=== PATIENT | male | born 1940 | race Caucasian/White ===

== ENCOUNTER 2019-02-04 12:39 | Inpatient (IN) | payer MEDICARE, MEDICAID ==
--- NOTE | 2019-02-04 12:57 | ED Physician Chart ---
ED Chief Complaint/HPI - Patient Information Date Seen:: 02/04/19 Time Seen:: 12:45 Chief Complaint:: Fever with leukocytosis. History of Present Illness:: Brought in by ambulance from nursing facility because pt was noticed to have fever. Lab study this morning revealed WBC 20.6K. Pt has h/o CVA with left hemiparesis and baseline functioning reportedly being nonverbal. H & P are limited because pt does not cooperate. Info is primarily from review of limited transfer documents. Allergies:: Allergies Allergy/AdvReac Type Severity Reaction Status Date / Time No Known Allergies Allergy Verified 12/31/18 14:56 Vitals:: see Nurse Note. Historian:: Medical Records Family MD/PCP:: Dr. Abraham LMP:: N/A Review:: Nurse's Note Reviewed, Transfer documents Reviewed ED Review of Systems - Review of Systems General/Constitutional: Other (Pt does not cooperate for ROS.) ED Past Medical History - Past Medical History Past Medical History: HTN, CVA/TIA, Thyroid disorder, Other (BPH) Family History: Other (Pt does not cooperate to provide info on FHx.) Social History: Care Facility, Other (Pt does not cooperate to provide info on SHx.) Employment:: Retired. Surgical History: other (Pt does not cooperate to provide info on Surgical Hx.) Psychiatricy History: None Medication: Reviewed Family Medical History - Family Member Mother History Unknown: Yes Ethnicity: Hx Family Cancer: No Hx Family Coronary Artery Disease: Yes Hx Family Congestive Heart Failure: No Hx Family Hypertension: Yes Hx Family Stroke: No Hx Family Diabetes: Yes Hx Family Seizures: No Hx Family Dementia: Yes Hx Family AIDS: No Hx Family HIV: No Hx Family COPD: No Hx Family Hepatitis: No Hx Family Psychiatric Problems: No Hx Family Tuberculosis: No ED Physical Exam - Physical Examination General/Constitutional: Awake, Well-developed, well-nourished (elderly male.), Alert, No distress Other Gen/Cons comments:: Pt is nonverbal, breathes comfortably, responds to voice and tactile stimuli. Head: Atraumatic Eyes: Lids, conjuctiva normal, PERRL, EOMI Skin: No lymphadenopathy Other Skin comments:: Mucous membrane is slightly dry. ENMT: External ears, nose nl, TM canals nl, Nasal exam nl, Oropharynx nl Neck: Nontender, Full ROM w/o pain, No JVD, No nuchal rigidity, No mass, No stridor Respiratory: Nl effort/Exclusion, Clear to Auscultation, No Wheeze/Rhonchi/Rales Cardio Vascular: RRR (HR 96), No murmur, gallop, rubs, Carotid/Femoral/Distal pulses equal bilaterally GI: No tenderness/rebounding/guarding, No organomegaly, Normal BS's, Nondistended Other GI comments:: abdomen is soft. Extremities: No edema Other Neuro/Psych comments:: Alert and responsive to voice and tactile stimuli. Pt is nonverbal. Spontaneous movements noticed in all 4 extremities. Pt does not cooperate for full neurological exam. ED Labs/Radiology/EKG Results - Lab Results Results: Laboratory Results - last 24 hr 02/04/19 02/04/19 02/04/19 12:30 13:25 13:25 WBC 18.4 H RBC 3.63 L Hgb 11.4 L Hct 33.9 L MCV 93.4 MCH 31.5 H MCHC Differential 33.7 RDW 14.9 Plt Count 378 MPV 7.3 Add Manual Diff YES PT 9.9 INR 0.95 PTT (Actin FS) 29.6 Sodium Potassium Chloride Carbon Dioxide Anion Gap BUN Creatinine Est GFR ( Amer) Est GFR (Non-Af Amer) BUN/Creatinine Ratio Glucose Whole Bld Lactic Acid Calcium Total Bilirubin AST ALT Alkaline Phosphatase Troponin I Total Protein Albumin Globulin Albumin/Globulin Ratio Urine Source RAO PORT Urine Color YELLOW Urine Clarity CLOUDY Urine pH 8.5 Ur Specific [place] 1.015 Urine Protein >=300 Urine Glucose (UA) NEGATIVE Urine Ketones TRACE Urine Blood LARGE H Urine Nitrate NEGATIVE Urine Bilirubin NEGATIVE Urine Urobilinogen 1.0 Ur Leukocyte Esterase LARGE H Urine RBC 10-25 H Urine WBC 50-100 H Ur Epithelial Cells NONE SEEN Urine Bacteria MANY H 02/04/19 02/04/19 13:25 13:25 WBC RBC Hgb Hct MCV MCH MCHC Differential RDW Plt Count MPV Add Manual Diff PT INR PTT (Actin FS) Sodium 141 Potassium 3.4 L Chloride 105 Carbon Dioxide 23.0 Anion Gap 16.4 H BUN 30 H Creatinine 1.2 Est GFR ( Amer) TNP Est GFR (Non-Af Amer) TNP BUN/Creatinine Ratio 25.0 Glucose 197 H Whole Bld Lactic Acid 2.21 H* Calcium 9.4 Total Bilirubin 0.4 AST 19 ALT 4 L Alkaline Phosphatase 106 H Troponin I 0.52 H* Total Protein 6.6 Albumin 3.3 L Globulin 3.3 Albumin/Globulin Ratio 1.0 Urine Source Urine Color Urine Clarity Urine pH Ur Specific [place] Urine Protein Urine Glucose (UA) Urine Ketones Urine Blood Urine Nitrate Urine Bilirubin Urine Urobilinogen Ur Leukocyte Esterase Urine RBC Urine WBC Ur Epithelial Cells Urine Bacteria - Radiology Results Results: PCXR: Slight increase left basal lung markings favoring atelectasis. Infiltrate is less likely but cannot be excluded. Cardiomegaly and atherosclerosis. Official report per Dr. Robby Rod, radilologist. - EKG Interpretations EKG Time:: 13:23 Rate & Rhythm: Probable NSR with baseline artifact as pt was not cooperative. VR 113 Comments:: OMEGA JJ. NSSTT changes. ED Septic Shock - . Is Septic Shock (SBP<90, OR Lactate>4 mmol\L) present?: No ED Reassessment (Disposition) - Reassessment Reassessment:: 1450 Pt has been repeatedly evaluated. Pt remains stable. No new findings. Pt's attending physician Dr. Abraham has been contacted. 1553 Pt appears to be comfortable and remains hemodynamically stable. Case was discussed with Dr. Abraham with pertinent info reviewed. Pt is to be admitted to ICU under his care. Reassessment Condition:: Improved - Diagnosis Diagnosis:: Urinary tract infection with early sepsis. Dehydration. Hyperglycemia. Mildly elevated troponin I. Mild hypokalemia. H/O CVA with dementia. - Patient Disposition Admitting Medical Physician:: Marcelo Abraham Time:: 15:55 Condition at Disposition:: Stable
[2019-02-04] MEDS ORDERED: cefTRIAXone 1 GM in Sodium Chloride 0.9% 50 ML IV ONE (13:03)
[2019-02-04] MEDS ORDERED: Sodium Chloride 0.9% 1,000 ML IV ONE (13:09)
[2019-02-04 13:46] LABS: URINE SOURCE FOLEY PORT
[2019-02-04 13:50] LABS: HEMATOCRIT 33.9 % (41.0-60); HEMOGLOBIN 11.4 gm/dL (12-16); MEAN CELL VOLUME 93.4 fl (80-99); MEAN CORPUSCULAR HEMOGLOBIN 31.5 pg (27.0-31.0); MEAN CORPUSCULAR HGB CONC 33.7 pg (28.0-36.0); MEAN PLATELET VOLUME 7.3 fl; PLATELET COUNT 378 Th/cmm (150-400); RED BLOOD COUNT 3.63 Mil/cmm (3.80-5.80); RED CELL DISTRIBUTION WIDTH 14.9 % (11.5-20.0)
[2019-02-04 13:50] LABS: URINE BILIRUBIN NEGATIVE (NEGATIVE); URINE BLOOD LARGE (NEGATIVE); URINE GLUCOSE (UA) NEGATIVE (NEGATIVE); URINE KETONE TRACE mg/dL (NEGATIVE); URINE LEUKOCYTE ESTERASE LARGE (NEGATIVE); URINE MICROSCOPIC INDICATED? YES; URINE NITRATE NEGATIVE (NEGATIVE); URINE PH 8.5 (4.6 - 8.0); URINE PROTEIN >=300 mg/dL (NEGATIVE)
[2019-02-04 13:55] LABS: WHITE BLOOD COUNT 18.4 Th/cmm (4.8-10.8)
[2019-02-04 13:56] LABS: INR 0.95 (0.5-1.4); PROTHROMBIN TIME (TEST) 9.9 SECONDS (9.5-11.5)
[2019-02-04 14:00] LABS: ALBUMIN 3.3 gm/dL (4.2-5.5); ALKALINE PHOSPHATASE 106 U/L (34-104); ANION GAP 16.4 (7.0-16.0); BILIRUBIN,TOTAL 0.4 mg/dL (0.3-1.0); BUN - UREA NITROGEN 30 mg/dL (7-25); CALCIUM SERUM 9.4 mg/dL (8.6-10.3); CHLORIDE 105 mEq/L (98-107); CREATININE - SERUM 1.2 mg/dL (0.7-1.3); GLUCOSE 197 mg/dL (70-105); POTASSIUM SERUM 3.4 mEq/L (3.5-5.1); SGOT 19 U/L (13-39); SGPT/ALT 4 U/L (7-52); SODIUM SERUM 141 mEq/L (136-145); TOTAL PROTEIN,SERUM 6.6 gm/dL (6.0-8.3)
--- NOTE | 2019-02-04 14:00 | Diagnostic Imaging Report ---
CHEST X-RAY: AP view INDICATION: Fever, leukocytosis COMPARISON: Chest x-ray 01/02/2019 FINDINGS: There is elevation of the right hemidiaphragm. Slight increased left basal lung markings are noted. Cardiomegaly is noted with atherosclerosis. Degenerative changes of the spine are noted. Skinfold over the right hemithorax is noted. IMPRESSION: Slight increase left basal lung markings favoring atelectasis. Infiltrate is less likely but cannot be excluded. Cardiomegaly and atherosclerosis.
[2019-02-04 14:15] LABS: TROP I 0.52 ng/mL (0.01-0.05)
[2019-02-04 14:22] LABS: URINE CLARITY CLOUDY (CLEAR); URINE COLOR YELLOW
[2019-02-04 14:24] LABS: URINE BACTERIA MANY /hpf (NONE SEEN); URINE EPITHELIAL CELLS NONE SEEN /lpf (FEW); URINE WBC 50-100 /hpf (0-5)
[2019-02-04] MEDS ORDERED: Potassium Chloride 20 mEq ER Tab PO ONE ×2 (14:59→15:05)
[2019-02-04 16:01] LABS: LYMPHOCYTE 4 % (20-50); MONOCYTE 4 % (2-10); NEUTROPHILS 92 % (40-80)
[2019-02-04] MEDS: INSULIN LISPRO SLIDING SCALE 100 UNITS/ML UNIT SUBQ SCH ×2 (18:00→21:59)
[2019-02-04] MEDS ORDERED: Dextrose 50% 50 mL Abboject IVP PRN (20:04)
[2019-02-04] MEDS: D5-0.45NS 1,000 ML IV SCH (20:50)
[2019-02-04] MEDS ORDERED: Piperacillin Sodium/Tazobact 2.25 gm Vial IV ONE (22:07)
[2019-02-05] MEDS ORDERED: Piperacillin Sodium/Tazobact 2.25 gm Vial IV ONE (04:24)
[2019-02-05 04:46] LABS: % BASOPHILS 0.1 % (0.0-2.0); % EOSINOPHILS 0.2 % (0.0-5.0); % LYMPHOCYTES 10.9 % (20.0-50.0); % MONOCYTES 4.6 % (2.0-10.0); % NEUTROPHILS 84.2 % (40.0-80.0); HEMATOCRIT 30.8 % (41.0-60); HEMOGLOBIN 10.1 gm/dL (12-16); LYMPHOCYTE ABSOLUTE 1.5 Th/cmm (1.5-3.0); MEAN CELL VOLUME 94.3 fl (80-99); MEAN CORPUSCULAR HEMOGLOBIN 30.9 pg (27.0-31.0); MEAN CORPUSCULAR HGB CONC 32.8 pg (28.0-36.0); MEAN PLATELET VOLUME 7.3 fl; MONOCYTE ABSOLUTE 0.6 Th/cmm (0.3-1.0); PLATELET COUNT 313 Th/cmm (150-400); RED BLOOD COUNT 3.26 Mil/cmm (3.80-5.80); RED CELL DISTRIBUTION WIDTH 14.9 % (11.5-20.0); WHITE BLOOD COUNT 14.1 Th/cmm (4.8-10.8)
[2019-02-05 05:18] LABS: ALBUMIN 3.1 gm/dL (4.2-5.5); ALKALINE PHOSPHATASE 93 U/L (34-104); BILIRUBIN,TOTAL 0.4 mg/dL (0.3-1.0); BUN - UREA NITROGEN 22 mg/dL (7-25); CALCIUM SERUM 9.1 mg/dL (8.6-10.3); CARBON DIOXIDE 23.6 mEq/L (21.0-31.0); CHLORIDE 114 mEq/L (98-107); CREATININE - SERUM 0.8 mg/dL (0.7-1.3); POTASSIUM SERUM 3.6 mEq/L (3.5-5.1); SGOT 22 U/L (13-39); SGPT/ALT 8 U/L (7-52); SODIUM SERUM 147 mEq/L (136-145); TOTAL PROTEIN,SERUM 6.1 gm/dL (6.0-8.3)
[2019-02-05 05:42] LABS: GLUCOSE 120 mg/dL (70-105)
[2019-02-05] MEDS: INSULIN LISPRO SLIDING SCALE 100 UNITS/ML UNIT SUBQ SCH ×4 (06:39→20:24)
--- NOTE | 2019-02-05 11:03 | General Progress Note ---
Subjective - Review of Systems Service Date: 02/05/19 Subjective: Patient still complained of shortness of breath Objective - Results Result Diagrams: 02/05/19 04:15 02/05/19 04:15 Recent Labs: Laboratory Last Values WBC 14.1 Th/cmm (4.8-10.8) H 02/05/19 04:15 RBC 3.26 Mil/cmm (3.80-5.80) L 02/05/19 04:15 Hgb 10.1 gm/dL (12-16) L 02/05/19 04:15 Hct 30.8 % (41.0-60) L 02/05/19 04:15 MCV 94.3 fl (80-99) 02/05/19 04:15 MCH 30.9 pg (27.0-31.0) 02/05/19 04:15 MCHC Differential 32.8 pg (28.0-36.0) 02/05/19 04:15 RDW 14.9 % (11.5-20.0) 02/05/19 04:15 Plt Count 313 Th/cmm (150-400) 02/05/19 04:15 MPV 7.3 fl 02/05/19 04:15 Add Manual Diff YES 02/04/19 13:25 Neutrophils % 84.2 % (40.0-80.0) H 02/05/19 04:15 Lymphocytes % 10.9 % (20.0-50.0) L 02/05/19 04:15 Monocytes % 4.6 % (2.0-10.0) 02/05/19 04:15 Eosinophils % 0.2 % (0.0-5.0) 02/05/19 04:15 Basophils % 0.1 % (0.0-2.0) 02/05/19 04:15 Neutrophils (Manual) 92 % (40-80) H 02/04/19 13:25 Lymphocytes 4 % (20-50) L 02/04/19 13:25 Monocytes 4 % (2-10) 02/04/19 13:25 PT 9.9 SECONDS (9.5-11.5) 02/04/19 13:25 INR 0.95 (0.5-1.4) 02/04/19 13:25 PTT (Actin FS) 29.6 SECONDS (26.0-38.0) 02/04/19 13:25 Sodium 147 mEq/L (136-145) H 02/05/19 04:15 Potassium 3.6 mEq/L (3.5-5.1) 02/05/19 04:15 Chloride 114 mEq/L (98-107) H 02/05/19 04:15 Carbon Dioxide 23.6 mEq/L (21.0-31.0) 02/05/19 04:15 Anion Gap 13.0 (7.0-16.0) 02/05/19 04:15 BUN 22 mg/dL (7-25) 02/05/19 04:15 Creatinine 0.8 mg/dL (0.7-1.3) 02/05/19 04:15 Est GFR ( Amer) TNP 02/05/19 04:15 Est GFR (Non-Af Amer) TNP 02/05/19 04:15 BUN/Creatinine Ratio 27.5 02/05/19 04:15 Glucose 120 mg/dL (70-105) H D 02/05/19 04:15 POC Glucose 102 MG/DL (70 - 105) 02/05/19 06:35 Whole Bld Lactic Acid 1.64 mmol/L (0.60-1.99) 02/04/19 15:25 Calcium 9.1 mg/dL (8.6-10.3) 02/05/19 04:15 Total Bilirubin 0.4 mg/dL (0.3-1.0) 02/05/19 04:15 AST 22 U/L (13-39) 02/05/19 04:15 ALT 8 U/L (7-52) 02/05/19 04:15 Alkaline Phosphatase 93 U/L (34-104) 02/05/19 04:15 Troponin I 0.16 ng/mL (0.01-0.05) H* D 02/05/19 04:15 Total Protein 6.1 gm/dL (6.0-8.3) 02/05/19 04:15 Albumin 3.1 gm/dL (4.2-5.5) L 02/05/19 04:15 Globulin 3.0 gm/dL 02/05/19 04:15 Albumin/Globulin Ratio 1.0 (1.0-1.8) 02/05/19 04:15 Urine Source RAO PORT 02/04/19 12:30 Urine Color YELLOW 02/04/19 12:30 Urine Clarity CLOUDY (CLEAR) 02/04/19 12:30 Urine pH 8.5 (4.6 - 8.0) 02/04/19 12:30 Ur Specific [place] 1.015 (1.005-1.030) 02/04/19 12:30 Urine Protein >=300 mg/dL (NEGATIVE) 02/04/19 12:30 Urine Glucose (UA) NEGATIVE mg/dL (NEGATIVE) 02/04/19 12:30 Urine Ketones TRACE mg/dL (NEGATIVE) 02/04/19 12:30 Urine Blood LARGE (NEGATIVE) H 02/04/19 12:30 Urine Nitrate NEGATIVE (NEGATIVE) 02/04/19 12:30 Urine Bilirubin NEGATIVE (NEGATIVE) 02/04/19 12:30 Urine Urobilinogen 1.0 E.U./dL (0.2 - 1.0) 02/04/19 12:30 Ur Leukocyte Esterase LARGE (NEGATIVE) H 02/04/19 12:30 Urine RBC 10-25 /hpf (0-5) H 02/04/19 12:30 Urine WBC 50-100 /hpf (0-5) H 02/04/19 12:30 Ur Epithelial Cells NONE SEEN /lpf (FEW) 02/04/19 12:30 Urine Bacteria MANY /hpf (NONE SEEN) H 02/04/19 12:30 - Physical Exam Vitals and I&O: Vital Signs Temp 97.6 F 02/05/19 08:00 Pulse 55 02/05/19 09:57 Resp 16 02/05/19 09:57 BP 143/68 02/05/19 09:57 Pulse Ox 99 02/05/19 09:57 Intake & Output 02/04/19 02/05/19 02/05/19 18:59 06:59 18:59 Intake Total 50 350 Output Total 800 Balance 50 -450 Weight (lbs) 65.771 kg 65.941 kg Intake: Intake, IV Amount 50 350 Piperacillin Sodium/ 100 Tazobact 2.25 gm In Sodium Chloride 0.9% 50 ml @ 100 mls/hr IV Q8HR [facility] Rx#:[id number] Vancomycin HCl 1 gm In 250 Sodium Chloride 0.9% 250 ml @ 165 mls/hr IV ONCE ONE Rx#:[id number] Oral 0 Output: Urine 800 Other: # Bowel Movements 2 Stool Characteristics Liquid Liquid Brown Brown Weight Source Estimated Bedscale Active Medications: Current Medications Dextrose (D50w) 50 ml IVP PRN PRN PRN Reason: B.S < 70 MG/DL Stop: 04/05/19 20:03 Piperacillin Sod/Tazobactam (Sod 2.25 gm/ Sodium Chloride) 50 mls @ 100 mls/hr IV Q8HR [facility] Stop: 04/05/19 20:59 Last Infusion: 02/05/19 05:05 Dose: Infused Dextrose/Sodium Chloride (D5-0.45ns) 1,000 mls @ 50 mls/hr IV .Q20H [facility] Stop: 04/05/19 20:00 Last Admin: 02/04/19 20:50 Dose: 50 mls/hr Vancomycin HCl 1.25 gm/ Sodium (Chloride) 250 mls @ 165 mls/hr IV Q12H [facility] Stop: 04/06/19 08:59 Insulin Human Lispro (Humalog Insulin Sliding Scale) 0 units SUBQ ACHS [facility]; Protocol Stop: 04/05/19 17:28 Last Admin: 02/05/19 06:39 Dose: Not Given Miscellaneous (Vancomycin Iv Per Pharmacy) 1 ea MC DAILY [facility] Stop: 04/06/19 08:59 General: No acute distress Neck: Supple, +2 carotid pulse wo bruit Cardiovascular: Regular rate, Normal S1, Normal S2, Systolic murmurs Abdomen: Bowel sounds, Soft Extremities: Edema, Pulses (normal) Neurological: Strength at 5/5 X4 ext, Normal tone, Cranial nerves 3-12 NL, Reflexes 2+, Other (left-sided weakness) Assessment/Plan - Problem List Patient Problems: All Active Problems FEVER, CONGESTION, ELEVATED WBC (Acute) FEVER, CONGESTION, ELEVATED WBC (Acute) - Assessment Assessment: Pneumonia Urinary tract infection Lactic acidosis Hypertension BPH Dysphagia Protein calorie malnutrition Small decubitus ulcer left heel healing Hypothyroid CVA with left-sided weakness - Plan Plan: Continue IV antibiotic present management and physical therapy
[2019-02-05 11:06] VITALS: BP 128/70
[2019-02-05] MEDS: Ipratropium Neb 0.5 mg/2.5 mL UD HHN SCH ×2 (14:52→19:27)
[2019-02-05] MEDS: Albuterol Nebulizer 2.5mg/3mL HHN SCH ×2 (14:52→19:27)
[2019-02-05] MEDS: Theophylline 100 mg ER Tab PO SCH (15:00)
--- NOTE | 2019-02-05 15:31 | History & Physical ---
ADMIT DATE: 02/04/[address] Abraham. CHIEF COMPLAINT: Fever. HISTORY OF PRESENT ILLNESS: This is a 78-year-old male, who is a care home resident, who was admitted to the ICU unit due to an abnormal laboratory result of WBC of 20,000. The patient did have an episode of fever. For this reason, the patient is admitted to the ICU unit. PAST MEDICAL HISTORY: Hypertension, CVA, hypothyroidism, BPH. FAMILY HISTORY: Noncontributory. SOCIAL HISTORY: The patient is a care home resident. PAST SURGICAL HISTORY: Unknown. MEDICATIONS: See medication list. REVIEW OF SYSTEMS: Unable to obtain at this time. PHYSICAL EXAMINATION: GENERAL: Elderly male, well developed, well nourished, no apparent distress, noted with congestion. VITAL SIGNS: Temperature 97.6, heart rate 80, blood pressure 123/68, respirations 16, O2 96%. HEAD: Normocephalic, atraumatic. NECK: Supple. No mass. LUNGS: Rhonchi with expiratory wheezes noted. HEART: Regular rhythm. No murmurs or gallops. ABDOMEN: Soft, nontender. LABORATORY DATA: WBC 14.1, H and H 10.1 and 30.8, platelet of 313. Sodium 142, potassium 3.6, chloride 114, BUN 113, creatinine 22. Troponin is 0.16. The patient had a chest x-ray done and impression is slight increased left basal lung markings, favoring atelectasis, infiltrates less likely, but cannot be excluded. ASSESSMENT: Acute urinary tract infection, hypokalemia, early sepsis, hypertension, benign prostatic hypertrophy, elevated troponin, acute dehydration. PLAN: The patient to be admitted to the ICU unit. We will get Infectious Disease as well as Cardiology on the case. We will get ST for evaluation, treat the patient with IV antibiotics of Zosyn, Accu-Chek a.c. and at bedtime. We will continue to monitor this patient. JOB# [id number]
[2019-02-05] MEDS ORDERED: Non-Formulary Item 1 EA (Amino Acids/Protein Hydrolys [Pro-Stat Sugar Free Liquid] 30 ML) PO SCH (17:00)
[2019-02-05] MEDS: D5-0.45NS 1,000 ML IV SCH (20:26)
--- NOTE | 2019-02-06 00:22 | Consultation ---
DATE OF CONSULTATION: 02/05/2019 INFECTIOUS DISEASE CONSULTATION REFERRING PHYSICIAN: Elias Abraham M.D. REASON FOR CONSULTATION: Leukocytosis, sepsis, and pneumonia. HISTORY OF PRESENT ILLNESS: The patient is a 78-year-old male with past medical history of functional quadriplegia, CVA, dementia with left-sided hemiparesis, UTI, hypertension, BPH, dysphagia, hypothyroidism, and decubitus ulcer in left heel, brought to the ER from nursing facility for leukocytosis and fever. The patient has WBC count of 20,600. So, he was brought to the ER for further evaluation and management. On initial evaluation, the patient's temperature was 98 degree Fahrenheit and WBC count was 18,400. Troponin was also elevated. Chest x-ray, suspected atelectasis versus pneumonia. Urinalysis suggested pyuria and bacteriuria. The patient was started on vancomycin and Zosyn, followed by one dose of Rocephin. ID consult was called for further antibiotic management. PAST MEDICAL HISTORY: Includes hypertension, BPH, CVA with left-sided weakness, BPH, and hypertension. MEDICATIONS: As per medication reconciliation sheet. Antibiotic castillo, the patient is receiving vancomycin and Zosyn. ALLERGIES: NKDA. SOCIAL HISTORY: The patient lives in a senior living. No history of smoking, alcohol, or drug use. TRAVEL HISTORY: None. IMMUNIZATION STATUS: Up to date. REVIEW OF SYSTEMS: GENERAL: The patient has had a fever at senior living as per the records, but no fever at this time. HEENT: No diplopia, no photophobia, no sore throat. RESPIRATORY: No cough, no shortness of breath. CARDIOVASCULAR: No chest pain or palpitation. GASTROINTESTINAL: No nausea, no vomiting, no diarrhea, no constipation. GENITOURINARY: No dysuria. NEUROLOGIC: No headache, no dizziness, no focal weakness. PHYSICAL EXAMINATION: VITAL SIGNS: Current vital signs shows temperature is 97.6 degrees Fahrenheit, pulse is 55, respirations 16, and blood pressure is 128/70. GENERAL: The patient is comfortable, lying in the bed, not in acute distress. HEENT: Head is normocephalic, atraumatic. Oral cavity is moist, pink tongue. NECK: Supple, no JVD, no carotid bruit. Trachea midline. CHEST: Bilateral breath sounds. No crackles or wheezing. HEART: S1, S2 within normal limits. Regular rhythm. No murmur, no gallop. ABDOMEN: Soft, nontender, nondistended. Bowel sounds present. EXTREMITIES: No cyanosis, no clubbing, no edema. Left-sided weakness, complete ipsilateral. LABORATORY DATA: WBC count is 14,100, hemoglobin is 10.1, hematocrit is 30.8, platelets are 313,000, and neutrophils 84%. INR is 0.95. Sodium is 147, potassium is 3.6, chloride is 114, bicarbonate is 24, BUN is 22, and creatinine is 0.8. Lactic acid was 2.21. Urinalysis showed cloudy urine with large blood, large leukoesterase, wbc's 50-100, and many bacteria. Chest x-ray showed slight increase in left basilar lung marking favoring atelectasis, infiltrate is less likely, but cannot be excluded cardiomegaly and atherosclerosis. IMPRESSION: 1. Leukocytosis, may be reactive to the lactic acidosis may be sepsis versus nonseptic, noninfectious etiology like dehydration, but creatinine is normal. 2. Pneumonia. 3. Urinary tract infection. 4. Benign prostatic hypertrophy. 5. Cerebrovascular accident with left-sided weakness. RECOMMENDATION AND PLAN: We will continue Zosyn and discontinue vancomycin IV. Depending on the culture report and clinical status, we will define further therapy. Thank you, Dr. Elias Abraham, for involving me in taking care of this patient. JOB# [id number]
--- NOTE | 2019-02-06 01:53 | Consultation ---
DATE OF CONSULTATION: 02/05/2019 HISTORY AND PHYSICAL: This is a 78-year-old male patient, who was brought to the hospital complaining of shortness of breath with elevated white count. The patient was found to have urinary tract infection, possible pneumonia. The patient is admitted. PAST MEDICAL HISTORY: Hypertension, BPH, dysphagia, protein-calorie malnutrition, small decubitus ulcer healing in the left heel, lactic acidosis, hypothyroid, CVA with late effect, left-sided weakness. FAMILY HISTORY: Unremarkable. SOCIAL HISTORY: No history of smoking, alcohol abuse. ALLERGIES: No known allergies. PHYSICAL EXAMINATION: VITAL SIGNS: Blood pressure 130/80, pulse 78, respirations 28. HEAD: Normocephalic. No lumps or bumps. EYES: Pupils equal, reactive to light. Fundi show AV nicking. Sclerae white. Conjunctivae pink. NECK: Carotid 2+. Normal upstroke. JVD flat. Thyroid not palpable. Lymph nodes not palpable. CHEST: Shows increased AP diameter. No kyphosis or scoliosis. LUNGS: Bilateral bronchovesicular breath sounds. Occasional wheeze or rhonchi. HEART: PMI sixth intercostal space with lateral to midclavicular line. S1, S2, S3, S4, soft systolic murmur. ABDOMEN: Soft. Liver and spleen not palpable. No organomegaly. Bowel sounds active. NEUROLOGIC: Left-sided weakness. CLINICAL IMPRESSION: Respiratory failure, rule out pneumonia, urinary tract infection, hypertension, benign prostatic hypertrophy, dysphagia with left-sided weakness small decubitus ulcer in the left heel, lactic acidosis, hypothyroidism, cerebrovascular accident with left-sided weakness. PLAN: The patient to continue present management, IV antibiotics. Repeat lactic acid level. Follow the patient in intensive care unit for sepsis. [facility]# [id number]
[2019-02-06] MEDS: Theophylline 100 mg ER Tab PO SCH ×3 (02:58→13:18)
[2019-02-06 06:40] LABS: % BASOPHILS 0.3 % (0.0-2.0); % EOSINOPHILS 0.8 % (0.0-5.0); % LYMPHOCYTES 15.5 % (20.0-50.0); % MONOCYTES 7.6 % (2.0-10.0); % NEUTROPHILS 75.8 % (40.0-80.0); EOSINOPHILE ABSOLUTE 0.1 Th/cmm (0.1-0.4); HEMATOCRIT 27.9 % (41.0-60); HEMOGLOBIN 9.4 gm/dL (12-16); LYMPHOCYTE ABSOLUTE 1.2 Th/cmm (1.5-3.0); MEAN CELL VOLUME 93.6 fl (80-99); MEAN CORPUSCULAR HEMOGLOBIN 31.5 pg (27.0-31.0); MEAN CORPUSCULAR HGB CONC 33.7 pg (28.0-36.0); MEAN PLATELET VOLUME 7.1 fl; MONOCYTE ABSOLUTE 0.6 Th/cmm (0.3-1.0); NEUTROPHILE ABSOLUTE 5.9 Th/cmm (1.8-8.0); PLATELET COUNT 359 Th/cmm (150-400); RED BLOOD COUNT 2.98 Mil/cmm (3.80-5.80); RED CELL DISTRIBUTION WIDTH 15.2 % (11.5-20.0); WHITE BLOOD COUNT 7.8 Th/cmm (4.8-10.8)
[2019-02-06 06:56] LABS: ANION GAP 11.7 (7.0-16.0); BUN - UREA NITROGEN 17 mg/dL (7-25); CALCIUM SERUM 8.8 mg/dL (8.6-10.3); CARBON DIOXIDE 22.4 mEq/L (21.0-31.0); CHLORIDE 116 mEq/L (98-107); CREATININE - SERUM 0.9 mg/dL (0.7-1.3); GLUCOSE 121 mg/dL (70-105); POTASSIUM SERUM 3.1 mEq/L (3.5-5.1); SODIUM SERUM 147 mEq/L (136-145)
[2019-02-06] MEDS: Ipratropium Neb 0.5 mg/2.5 mL UD HHN SCH ×4 (07:11→18:30)
[2019-02-06] MEDS: Albuterol Nebulizer 2.5mg/3mL HHN SCH ×4 (07:11→18:30)
[2019-02-06] MEDS: INSULIN LISPRO SLIDING SCALE 100 UNITS/ML UNIT SUBQ SCH ×4 (07:58→21:57)
[2019-02-06] MEDS: Aspirin 81mg Chewable Tab PO SCH (09:00)
[2019-02-06] MEDS: Lactobacillus Rhamnosus GG 15 Billion CFU CAP.SPRINK PO SCH (09:00)
[2019-02-06] MEDS: Enoxaparin 40 mg/0.4 mL 0.4mL Syr SUBQ SCH (09:00)
[2019-02-06] MEDS: Levothyroxine 0.1 Mg Tab PO SCH (09:11)
[2019-02-06] MEDS: Venelex 60gm Tube TP SCH (09:11)
[2019-02-06] MEDS ORDERED: Potassium Chloride 20 mEq ER Tab PO ONE (10:02)
--- NOTE | 2019-02-06 11:12 | Internal Medicine Prog Note ---
Internal Medicine Subjective - Subjective Service Date: 02/06/19 Patient seen and examined:: with staff, chart reviewed Patient is:: awake, in bed Patient Complaints of:: pain with urination (UTI.), other (cerebrovascular accident with left-sided weakness.) Per staff patient has:: no adverse event, no episodes of fall Internal Medicine Objective - Results Result Diagrams: 02/06/19 06:00 02/06/19 06:00 Recent Labs: Laboratory Last Values WBC 7.8 Th/cmm (4.8-10.8) 02/06/19 06:00 RBC 2.98 Mil/cmm (3.80-5.80) L 02/06/19 06:00 Hgb 9.4 gm/dL (12-16) L 02/06/19 06:00 Hct 27.9 % (41.0-60) L 02/06/19 06:00 MCV 93.6 fl (80-99) 02/06/19 06:00 MCH 31.5 pg (27.0-31.0) H 02/06/19 06:00 MCHC Differential 33.7 pg (28.0-36.0) 02/06/19 06:00 RDW 15.2 % (11.5-20.0) 02/06/19 06:00 Plt Count 359 Th/cmm (150-400) 02/06/19 06:00 MPV 7.1 fl 02/06/19 06:00 Add Manual Diff YES 02/04/19 13:25 Neutrophils % 75.8 % (40.0-80.0) 02/06/19 06:00 Lymphocytes % 15.5 % (20.0-50.0) L 02/06/19 06:00 Monocytes % 7.6 % (2.0-10.0) 02/06/19 06:00 Eosinophils % 0.8 % (0.0-5.0) 02/06/19 06:00 Basophils % 0.3 % (0.0-2.0) 02/06/19 06:00 Neutrophils (Manual) 92 % (40-80) H 02/04/19 13:25 Lymphocytes 4 % (20-50) L 02/04/19 13:25 Monocytes 4 % (2-10) 02/04/19 13:25 PT 9.9 SECONDS (9.5-11.5) 02/04/19 13:25 INR 0.95 (0.5-1.4) 02/04/19 13:25 PTT (Actin FS) 29.6 SECONDS (26.0-38.0) 02/04/19 13:25 Sodium 147 mEq/L (136-145) H 02/06/19 06:00 Potassium 3.1 mEq/L (3.5-5.1) L 02/06/19 06:00 Chloride 116 mEq/L (98-107) H 02/06/19 06:00 Carbon Dioxide 22.4 mEq/L (21.0-31.0) 02/06/19 06:00 Anion Gap 11.7 (7.0-16.0) 02/06/19 06:00 BUN 17 mg/dL (7-25) 02/06/19 06:00 Creatinine 0.9 mg/dL (0.7-1.3) 02/06/19 06:00 Est GFR ( Amer) TNP 02/06/19 06:00 Est GFR (Non-Af Amer) TNP 02/06/19 06:00 BUN/Creatinine Ratio 18.9 02/06/19 06:00 Glucose 121 mg/dL (70-105) H 02/06/19 06:00 POC Glucose 111 MG/DL (70 - 105) H 02/06/19 07:49 Whole Bld Lactic Acid 1.64 mmol/L (0.60-1.99) 02/04/19 15:25 Calcium 8.8 mg/dL (8.6-10.3) 02/06/19 06:00 Total Bilirubin 0.4 mg/dL (0.3-1.0) 02/05/19 04:15 AST 22 U/L (13-39) 02/05/19 04:15 ALT 8 U/L (7-52) 02/05/19 04:15 Alkaline Phosphatase 93 U/L (34-104) 02/05/19 04:15 Troponin I 0.16 ng/mL (0.01-0.05) H* D 02/05/19 04:15 Total Protein 6.1 gm/dL (6.0-8.3) 02/05/19 04:15 Albumin 3.1 gm/dL (4.2-5.5) L 02/05/19 04:15 Globulin 3.0 gm/dL 02/05/19 04:15 Albumin/Globulin Ratio 1.0 (1.0-1.8) 02/05/19 04:15 Urine Source RAO PORT 02/04/19 12:30 Urine Color YELLOW 02/04/19 12:30 Urine Clarity CLOUDY (CLEAR) 02/04/19 12:30 Urine pH 8.5 (4.6 - 8.0) 02/04/19 12:30 Ur Specific [place] 1.015 (1.005-1.030) 02/04/19 12:30 Urine Protein >=300 mg/dL (NEGATIVE) 02/04/19 12:30 Urine Glucose (UA) NEGATIVE mg/dL (NEGATIVE) 02/04/19 12:30 Urine Ketones TRACE mg/dL (NEGATIVE) 02/04/19 12:30 Urine Blood LARGE (NEGATIVE) H 02/04/19 12:30 Urine Nitrate NEGATIVE (NEGATIVE) 02/04/19 12:30 Urine Bilirubin NEGATIVE (NEGATIVE) 02/04/19 12:30 Urine Urobilinogen 1.0 E.U./dL (0.2 - 1.0) 02/04/19 12:30 Ur Leukocyte Esterase LARGE (NEGATIVE) H 02/04/19 12:30 Urine RBC 10-25 /hpf (0-5) H 02/04/19 12:30 Urine WBC 50-100 /hpf (0-5) H 02/04/19 12:30 Ur Epithelial Cells NONE SEEN /lpf (FEW) 02/04/19 12:30 Urine Bacteria MANY /hpf (NONE SEEN) H 02/04/19 12:30 - Physical Exam Vitals and I&O: Vital Signs Temp 99.8 F 02/06/19 04:00 Pulse 66 02/06/19 10:57 Resp 16 02/06/19 10:57 BP 134/60 02/06/19 08:59 Pulse Ox 96 02/06/19 10:57 Intake & Output 02/05/19 02/06/19 02/06/19 18:59 06:59 18:59 Intake Total 1150 50 Output Total 650 Balance 500 50 Weight (lbs) 62.55 kg 68.674 kg Intake: Intake, IV Amount 1050 50 D5-0.45NS 1,000 ml @ 50 1000 mls/hr IV .Q20H [facility] Rx#: [id number] Piperacillin Sodium/ 50 50 Tazobact 4.5 gm In Sodium Chloride 0.9% 50 ml @ 100 mls/hr IV Q8HR [facility] Rx #:[id number] Other 100 Output: Urine 650 Other: # Voids 300 # Bowel Movements 0 0 Stool Characteristics Liquid Brown Weight Source Bedscale Bedscale Active Medications: Current Medications Albuterol Sulfate (Albuterol 2.5mg/3ml Neb Ud) 2.5 mg HHN QIDRT [facility] Stop: 04/06/19 14:59 Last Admin: 02/06/19 10:57 Dose: 2.5 mg Aspirin (Aspirin Chewable) 81 mg PO DAILY [facility] Stop: 04/07/19 08:59 Last Admin: 02/06/19 09:00 Dose: 81 mg Carbidopa/Levodopa (Sinemet 25mg-100 Mg) 1 tab PO QID [facility] Stop: 04/06/19 16:59 Last Admin: 02/06/19 09:00 Dose: 1 tab [place] Oil/[place] Balsam/Trypsin (Venelex) 1 appl TP DAILY [facility] Stop: 04/07/19 08:59 Last Admin: 02/06/19 09:11 Dose: 1 appl Chlorpromazine (Thorazine) 12.5 mg PO Q8H PRN; Protocol PRN Reason: Hiccups Stop: 04/06/19 13:38 Citalopram Hydrobromide (Celexa) 10 mg PO DAILY [facility] Stop: 04/07/19 08:59 Dextrose (D50w) 50 ml IVP PRN PRN PRN Reason: B.S < 70 MG/DL Stop: 04/05/19 20:03 Enoxaparin Sodium (Lovenox) 40 mg SUBQ DAILY [facility] Stop: 04/07/19 08:59 Last Admin: 02/06/19 09:00 Dose: 40 mg Hydralazine HCl (Apresoline) 25 mg PO Q8H [facility] Stop: 04/06/19 13:44 Last Admin: 02/05/19 20:56 Dose: 25 mg Dextrose/Sodium Chloride (D5-0.45ns) 1,000 mls @ 50 mls/hr IV .Q20H [facility] Stop: 04/05/19 20:00 Last Admin: 02/05/19 20:26 Dose: 50 mls/hr Piperacillin Sod/Tazobactam (Sod 4.5 gm/ Sodium Chloride) 50 mls @ 100 mls/hr IV Q8HR [facility] Stop: 04/06/19 12:59 Last Admin: 02/06/19 05:48 Dose: 100 mls/hr Insulin Human Lispro (Humalog Insulin Sliding Scale) 0 units SUBQ ACHS [facility]; Protocol Stop: 04/05/19 17:28 Last Admin: 02/06/19 07:58 Dose: Not Given Ipratropium [place] (Atrovent Neb 0.5mg/2.5ml) 0.5 mg HHN QIDRT [facility] Stop: 04/06/19 14:59 Last Admin: 02/06/19 10:57 Dose: 0.5 mg Lactobacillus Rhamnosus (Culturelle 15b) 1 each PO DAILY [facility] Stop: 04/07/19 08:59 Last Admin: 02/06/19 09:00 Dose: 1 each Levothyroxine Sodium (Synthroid) 0.1 mg PO QDAC [facility] Stop: 04/07/19 07:29 Last Admin: 02/06/19 09:11 Dose: 0.1 mg Lisinopril (Zestril) 10 mg PO DAILY [facility] Stop: 04/07/19 08:59 Last Admin: 02/06/19 08:59 Dose: 10 mg Memantine (Namenda) 10 mg PO DAILY [facility] Stop: 04/07/19 08:59 Last Admin: 02/06/19 09:00 Dose: 10 mg Oxybutynin Chloride (Ditropan) 5 mg PO TID [facility] Stop: 04/06/19 13:59 Last Admin: 02/06/19 09:00 Dose: 5 mg Tamsulosin HCl (Flomax) 0.4 mg PO HS [facility] Stop: 04/06/19 20:59 Last Admin: 02/05/19 20:27 Dose: 0.4 mg Theophylline (Lior-Dur) 200 mg PO Q12H [facility] Stop: 04/06/19 13:59 Last Admin: 02/06/19 03:14 Dose: 200 mg Physical Exam: 78 y/o male patient has past history of CVA with left-sided weakness. General: weak HEENT: NC/AT Neck: Supple, No JVD Lungs: wheezing, ronchi, other (pneumonia.) Cardiovascular: RRR, Normal S1 Abdomen: soft, non-tender Extremities: clear Neurological: no change Internal Medicine Assmt/Plan - Assessment Assessment: Leukocytosis. Pneumonia. UTI. BPH. CVA with Left sided-weakness. HTN. Cardiomegaly. Atheroscelosis. - Plan Plan: Continuation of care. Monitor vitals, labs and diet. Continue Antibiotics and present meds as directed. Fall precaution. Monitor pain, pain management. Continue present care management. Nutritional Asmnt/Malnutr-PDOC - Dietary Evaluation Malnutrition Findings (Please click <Entered> for more info): Nutritional Asmnt/Malnutrition Start: 02/05/19 11: 30 Text: Status: Complete Freq: Protocol: Document 02/05/19 11:30 HAYDEN (Rec: 02/05/19 11:56 AUBREYG [email or web address]) Nutritional Asmnt/Malnutrition Patient General Information Nutritional Screening Moderate Risk Diagnosis early sepsis, UTI Pertinent Medical Hx/Surgical Hx HTN, CVA/TIA, thyroid disorder , BPH Subjective Information Pt was on NPO status, pending swallow eval. admitting glucose 197 noted. Visitied pt during lunch time. BORA Edmonds reported swallow eval was done. ST recommended pureed nectar thick liquid. Diet order will start at dinner. Current Diet Order/ Nutrition Support pureed, nectar thick Pertinent Medications D5-0.45ns, humalog, piperacillin, vancomycin Pertinent Labs 02/05 Na 147, Cl 114, Glucose 120, POC 102, alb 3.1 02/04 K 3.4, BUN 30, Glucose 197, POC 124, alb 3.3 Nutritional Hx/Data Height 1.78 m Height (Calculated Centimeters) 177.8 Current Weight (lbs) 65.771 kg Weight (Calculated Kilograms) 65.8 Weight (Calculated Grams) 76663.9 [place] Body Weight 166 Body Mass Index (BMI) 20.7 Weight Status Approriate GI Symptoms GI Symptoms None Last BM 02/05 x 2 Difficult in: None Skin Integrity/Comment: left heel dry scaly red look like healing fr pressure ore Estimated Nutritional Goals BEE in Kcals: Using Current wt Calories/Kcals/Kg 25-30 Kcals Calculated 7451-4751 Protein: Using Current wt Protein g/k-1.2 Protein Calculated 66-79 Fluid: ml 1650-1980ml (1ml/kcal) Nutritional Problem 1. Problem Problem altered nutrition related labs Etiology hyperglycemia Signs/Symptoms: glucose 120-197, POC 102-124 Malnutrition Alert Is there a minimum of two criteria No selected? Query Text:Check all the applicable criteria. A minimum of two criteria are recommended for diagnosis of either severe or non-severe malnutrition. Malnutrition Related to Morbid Obesity Malnutrition related to morbid obesity No Intervention/Recommendation Comments 1. Continue with pureed nectar thick liquid diet per ST recommendation. Consider adding CCHO diet if gluocse continue elevated and check A1c to assess the need for CCHO diet. 2. Monitor PO intake, wt, labs and skin integrity 3. F/U as high risk in 2-3 days Expected Outcomes/Goals Expected Outcomes/Goals 1. PO intake to meet at least 75% of nutritional needs. 2. Wt stability, skin to remain intact, labs to approach WNL.
--- NOTE | 2019-02-06 13:19 | General Progress Note ---
Subjective - Review of Systems Service Date: 02/06/19 Subjective: Patient still complained of shortness of breath Objective - Results Result Diagrams: 02/06/19 06:00 02/06/19 06:00 Recent Labs: Laboratory Last Values WBC 7.8 Th/cmm (4.8-10.8) 02/06/19 06:00 RBC 2.98 Mil/cmm (3.80-5.80) L 02/06/19 06:00 Hgb 9.4 gm/dL (12-16) L 02/06/19 06:00 Hct 27.9 % (41.0-60) L 02/06/19 06:00 MCV 93.6 fl (80-99) 02/06/19 06:00 MCH 31.5 pg (27.0-31.0) H 02/06/19 06:00 MCHC Differential 33.7 pg (28.0-36.0) 02/06/19 06:00 RDW 15.2 % (11.5-20.0) 02/06/19 06:00 Plt Count 359 Th/cmm (150-400) 02/06/19 06:00 MPV 7.1 fl 02/06/19 06:00 Add Manual Diff YES 02/04/19 13:25 Neutrophils % 75.8 % (40.0-80.0) 02/06/19 06:00 Lymphocytes % 15.5 % (20.0-50.0) L 02/06/19 06:00 Monocytes % 7.6 % (2.0-10.0) 02/06/19 06:00 Eosinophils % 0.8 % (0.0-5.0) 02/06/19 06:00 Basophils % 0.3 % (0.0-2.0) 02/06/19 06:00 Neutrophils (Manual) 92 % (40-80) H 02/04/19 13:25 Lymphocytes 4 % (20-50) L 02/04/19 13:25 Monocytes 4 % (2-10) 02/04/19 13:25 PT 9.9 SECONDS (9.5-11.5) 02/04/19 13:25 INR 0.95 (0.5-1.4) 02/04/19 13:25 PTT (Actin FS) 29.6 SECONDS (26.0-38.0) 02/04/19 13:25 Sodium 147 mEq/L (136-145) H 02/06/19 06:00 Potassium 3.1 mEq/L (3.5-5.1) L 02/06/19 06:00 Chloride 116 mEq/L (98-107) H 02/06/19 06:00 Carbon Dioxide 22.4 mEq/L (21.0-31.0) 02/06/19 06:00 Anion Gap 11.7 (7.0-16.0) 02/06/19 06:00 BUN 17 mg/dL (7-25) 02/06/19 06:00 Creatinine 0.9 mg/dL (0.7-1.3) 02/06/19 06:00 Est GFR ( Amer) TNP 02/06/19 06:00 Est GFR (Non-Af Amer) TNP 02/06/19 06:00 BUN/Creatinine Ratio 18.9 02/06/19 06:00 Glucose 121 mg/dL (70-105) H 02/06/19 06:00 POC Glucose 133 MG/DL (70 - 105) H 02/06/19 12:03 Whole Bld Lactic Acid 1.64 mmol/L (0.60-1.99) 02/04/19 15:25 Calcium 8.8 mg/dL (8.6-10.3) 02/06/19 06:00 Total Bilirubin 0.4 mg/dL (0.3-1.0) 02/05/19 04:15 AST 22 U/L (13-39) 02/05/19 04:15 ALT 8 U/L (7-52) 02/05/19 04:15 Alkaline Phosphatase 93 U/L (34-104) 02/05/19 04:15 Troponin I 0.16 ng/mL (0.01-0.05) H* D 02/05/19 04:15 Total Protein 6.1 gm/dL (6.0-8.3) 02/05/19 04:15 Albumin 3.1 gm/dL (4.2-5.5) L 02/05/19 04:15 Globulin 3.0 gm/dL 02/05/19 04:15 Albumin/Globulin Ratio 1.0 (1.0-1.8) 02/05/19 04:15 Urine Source RAO PORT 02/04/19 12:30 Urine Color YELLOW 02/04/19 12:30 Urine Clarity CLOUDY (CLEAR) 02/04/19 12:30 Urine pH 8.5 (4.6 - 8.0) 02/04/19 12:30 Ur Specific [place] 1.015 (1.005-1.030) 02/04/19 12:30 Urine Protein >=300 mg/dL (NEGATIVE) 02/04/19 12:30 Urine Glucose (UA) NEGATIVE mg/dL (NEGATIVE) 02/04/19 12:30 Urine Ketones TRACE mg/dL (NEGATIVE) 02/04/19 12:30 Urine Blood LARGE (NEGATIVE) H 02/04/19 12:30 Urine Nitrate NEGATIVE (NEGATIVE) 02/04/19 12:30 Urine Bilirubin NEGATIVE (NEGATIVE) 02/04/19 12:30 Urine Urobilinogen 1.0 E.U./dL (0.2 - 1.0) 02/04/19 12:30 Ur Leukocyte Esterase LARGE (NEGATIVE) H 02/04/19 12:30 Urine RBC 10-25 /hpf (0-5) H 02/04/19 12:30 Urine WBC 50-100 /hpf (0-5) H 02/04/19 12:30 Ur Epithelial Cells NONE SEEN /lpf (FEW) 02/04/19 12:30 Urine Bacteria MANY /hpf (NONE SEEN) H 02/04/19 12:30 - Physical Exam Vitals and I&O: Vital Signs Temp 99.8 F 02/06/19 04:00 Pulse 66 02/06/19 10:57 Resp 16 02/06/19 10:57 BP 134/60 02/06/19 08:59 Pulse Ox 96 02/06/19 10:57 Intake & Output 02/05/19 02/06/19 02/06/19 18:59 06:59 18:59 Intake Total 1150 100 Output Total 650 Balance 500 100 Weight (lbs) 62.55 kg 68.674 kg Intake: Intake, IV Amount 1050 100 D5-0.45NS 1,000 ml @ 50 1000 mls/hr IV .Q20H [facility] Rx#: [id number] Piperacillin Sodium/ 50 100 Tazobact 4.5 gm In Sodium Chloride 0.9% 50 ml @ 100 mls/hr IV Q8HR [facility] Rx #:[id number] Other 100 Output: Urine 650 Other: # Voids 300 # Bowel Movements 0 0 Stool Characteristics Liquid Brown Weight Source Bedscale Bedscale Active Medications: Current Medications Albuterol Sulfate (Albuterol 2.5mg/3ml Neb Ud) 2.5 mg HHN QIDRT [facility] Stop: 04/06/19 14:59 Last Admin: 02/06/19 10:57 Dose: 2.5 mg Aspirin (Aspirin Chewable) 81 mg PO DAILY [facility] Stop: 04/07/19 08:59 Last Admin: 02/06/19 09:00 Dose: 81 mg Carbidopa/Levodopa (Sinemet 25mg-100 Mg) 1 tab PO QID [facility] Stop: 04/06/19 16:59 Last Admin: 02/06/19 12:18 Dose: 1 tab [place] Oil/[place] Balsam/Trypsin (Venelex) 1 appl TP DAILY [facility] Stop: 04/07/19 08:59 Last Admin: 02/06/19 09:11 Dose: 1 appl Chlorpromazine (Thorazine) 12.5 mg PO Q8H PRN; Protocol PRN Reason: Hiccups Stop: 04/06/19 13:38 Citalopram Hydrobromide (Celexa) 10 mg PO DAILY [facility] Stop: 04/07/19 08:59 Dextrose (D50w) 50 ml IVP PRN PRN PRN Reason: B.S < 70 MG/DL Stop: 04/05/19 20:03 Enoxaparin Sodium (Lovenox) 40 mg SUBQ DAILY [facility] Stop: 04/07/19 08:59 Last Admin: 02/06/19 09:00 Dose: 40 mg Hydralazine HCl (Apresoline) 25 mg PO Q8H [facility] Stop: 04/06/19 13:44 Last Admin: 02/05/19 20:56 Dose: 25 mg Dextrose/Sodium Chloride (D5-0.45ns) 1,000 mls @ 50 mls/hr IV .Q20H [facility] Stop: 04/05/19 20:00 Last Admin: 02/05/19 20:26 Dose: 50 mls/hr Piperacillin Sod/Tazobactam (Sod 4.5 gm/ Sodium Chloride) 50 mls @ 100 mls/hr IV Q8HR [facility] Stop: 04/06/19 12:59 Last Admin: 02/06/19 12:17 Dose: 100 mls/hr Insulin Human Lispro (Humalog Insulin Sliding Scale) 0 units SUBQ ACHS [facility]; Protocol Stop: 04/05/19 17:28 Last Admin: 02/06/19 12:04 Dose: Not Given Ipratropium [place] (Atrovent Neb 0.5mg/2.5ml) 0.5 mg HHN QIDRT [facility] Stop: 04/06/19 14:59 Last Admin: 02/06/19 10:57 Dose: 0.5 mg Lactobacillus Rhamnosus (Culturelle 15b) 1 each PO DAILY [facility] Stop: 04/07/19 08:59 Last Admin: 02/06/19 09:00 Dose: 1 each Levothyroxine Sodium (Synthroid) 0.1 mg PO QDAC [facility] Stop: 04/07/19 07:29 Last Admin: 02/06/19 09:11 Dose: 0.1 mg Lisinopril (Zestril) 10 mg PO DAILY [facility] Stop: 04/07/19 08:59 Last Admin: 02/06/19 08:59 Dose: 10 mg Memantine (Namenda) 10 mg PO DAILY [facility] Stop: 04/07/19 08:59 Last Admin: 02/06/19 09:00 Dose: 10 mg Oxybutynin Chloride (Ditropan) 5 mg PO TID [facility] Stop: 04/06/19 13:59 Last Admin: 02/06/19 09:00 Dose: 5 mg Tamsulosin HCl (Flomax) 0.4 mg PO HS [facility] Stop: 04/06/19 20:59 Last Admin: 02/05/19 20:27 Dose: 0.4 mg Theophylline (Lior-Dur) 200 mg PO Q12H [facility] Stop: 04/06/19 13:59 Last Admin: 02/06/19 03:14 Dose: 200 mg General: No acute distress Neck: Supple, +2 carotid pulse wo bruit Cardiovascular: Regular rate, Normal S1, Normal S2, Systolic murmurs Abdomen: Bowel sounds, Soft Extremities: Edema, Pulses (normal) Neurological: Strength at 5/5 X4 ext, Normal tone, Cranial nerves 3-12 NL, Reflexes 2+, Other (left-sided weakness) Assessment/Plan - Problem List Patient Problems: All Active Problems FEVER, CONGESTION, ELEVATED WBC (Acute) FEVER, CONGESTION, ELEVATED WBC (Acute) - Assessment Assessment: Pneumonia Urinary tract infection Lactic acidosis Hypertension BPH Dysphagia Protein calorie malnutrition Small decubitus ulcer left heel healing Hypothyroid CVA with left-sided weakness - Plan Plan: Continue IV antibiotic present management and physical therapy Nutritional Asmnt/Malnutr-PDOC - Dietary Evaluation Malnutrition Findings (Please click <Entered> for more info): Nutritional Asmnt/Malnutrition Start: 02/05/19 11: 30 Text: Status: Complete Freq: Protocol: Document 02/05/19 11:30 LCHENG (Rec: 02/05/19 11:56 HENG [email or web address]) Nutritional Asmnt/Malnutrition Patient General Information Nutritional Screening Moderate Risk Diagnosis early sepsis, UTI Pertinent Medical Hx/Surgical Hx HTN, CVA/TIA, thyroid disorder , BPH Subjective Information Pt was on NPO status, pending swallow eval. admitting glucose 197 noted. Visitied pt during lunch time. BORA Edmonds reported swallow eval was done. ST recommended pureed nectar thick liquid. Diet order will start at dinner. Current Diet Order/ Nutrition Support pureed, nectar thick Pertinent Medications D5-0.45ns, humalog, piperacillin, vancomycin Pertinent Labs 02/05 Na 147, Cl 114, Glucose 120, POC 102, alb 3.1 02/04 K 3.4, BUN 30, Glucose 197, POC 124, alb 3.3 Nutritional Hx/Data Height 1.78 m Height (Calculated Centimeters) 177.8 Current Weight (lbs) 65.771 kg Weight (Calculated Kilograms) 65.8 Weight (Calculated Grams) 34012.9 [place] Body Weight 166 Body Mass Index (BMI) 20.7 Weight Status Approriate GI Symptoms GI Symptoms None Last BM 02/05 x 2 Difficult in: None Skin Integrity/Comment: left heel dry scaly red look like healing fr pressure ore Estimated Nutritional Goals BEE in Kcals: Using Current wt Calories/Kcals/Kg 25-30 Kcals Calculated 0829-8465 Protein: Using Current wt Protein g/k-1.2 Protein Calculated 66-79 Fluid: ml 1650-1980ml (1ml/kcal) Nutritional Problem 1. Problem Problem altered nutrition related labs Etiology hyperglycemia Signs/Symptoms: glucose 120-197, POC 102-124 Malnutrition Alert Is there a minimum of two criteria No selected? Query Text:Check all the applicable criteria. A minimum of two criteria are recommended for diagnosis of either severe or non-severe malnutrition. Malnutrition Related to Morbid Obesity Malnutrition related to morbid obesity No Intervention/Recommendation Comments 1. Continue with pureed nectar thick liquid diet per ST recommendation. Consider adding CCHO diet if gluocse continue elevated and check A1c to assess the need for CCHO diet. 2. Monitor PO intake, wt, labs and skin integrity 3. F/U as high risk in 2-3 days Expected Outcomes/Goals Expected Outcomes/Goals 1. PO intake to meet at least 75% of nutritional needs. 2. Wt stability, skin to remain intact, labs to approach WNL.
[2019-02-07] MEDS: Theophylline 100 mg ER Tab PO SCH ×2 (02:21→13:13)
[2019-02-07] MEDS: D5-0.45NS 1,000 ML IV SCH (05:42)
[2019-02-07 06:00] LABS: % BASOPHILS 0.6 % (0.0-2.0); % EOSINOPHILS 3.6 % (0.0-5.0); % LYMPHOCYTES 22.3 % (20.0-50.0); % MONOCYTES 7.3 % (2.0-10.0); % NEUTROPHILS 66.2 % (40.0-80.0); EOSINOPHILE ABSOLUTE 0.3 Th/cmm (0.1-0.4); HEMOGLOBIN 9.9 gm/dL (12-16); LYMPHOCYTE ABSOLUTE 1.6 Th/cmm (1.5-3.0); MEAN CELL VOLUME 93.7 fl (80-99); MEAN CORPUSCULAR HEMOGLOBIN 30.8 pg (27.0-31.0); MEAN CORPUSCULAR HGB CONC 32.9 pg (28.0-36.0); MEAN PLATELET VOLUME 6.6 fl; MONOCYTE ABSOLUTE 0.5 Th/cmm (0.3-1.0); NEUTROPHILE ABSOLUTE 4.8 Th/cmm (1.8-8.0); PLATELET COUNT 418 Th/cmm (150-400); RED BLOOD COUNT 3.21 Mil/cmm (3.80-5.80); RED CELL DISTRIBUTION WIDTH 15.2 % (11.5-20.0); WHITE BLOOD COUNT 7.2 Th/cmm (4.8-10.8)
[2019-02-07 06:27] LABS: ANION GAP 13.6 (7.0-16.0); BUN - UREA NITROGEN 12 mg/dL (7-25); CALCIUM SERUM 9.1 mg/dL (8.6-10.3); CARBON DIOXIDE 23.1 mEq/L (21.0-31.0); CHLORIDE 116 mEq/L (98-107); CREATININE - SERUM 0.9 mg/dL (0.7-1.3); GLUCOSE 115 mg/dL (70-105); POTASSIUM SERUM 3.7 mEq/L (3.5-5.1); SODIUM SERUM 149 mEq/L (136-145)
[2019-02-07] MEDS: Levothyroxine 0.1 Mg Tab PO SCH (06:45)
[2019-02-07] MEDS: INSULIN LISPRO SLIDING SCALE 100 UNITS/ML UNIT SUBQ SCH ×3 (06:49→18:18)
[2019-02-07] MEDS: Ipratropium Neb 0.5 mg/2.5 mL UD HHN SCH ×4 (07:03→19:44)
[2019-02-07] MEDS: Albuterol Nebulizer 2.5mg/3mL HHN SCH ×4 (07:03→19:44)
[2019-02-07] MEDS: Lactobacillus Rhamnosus GG 15 Billion CFU CAP.SPRINK PO SCH (08:18)
[2019-02-07] MEDS: Enoxaparin 40 mg/0.4 mL 0.4mL Syr SUBQ SCH (08:18)
[2019-02-07] MEDS: Aspirin 81mg Chewable Tab PO SCH (08:18)
--- NOTE | 2019-02-07 12:46 | General Progress Note ---
Subjective - Review of Systems Service Date: 02/07/19 Subjective: Patient still complained of shortness of breath Objective - Results Result Diagrams: 02/07/19 05:55 02/07/19 05:55 Recent Labs: Laboratory Last Values WBC 7.2 Th/cmm (4.8-10.8) 02/07/19 05:55 RBC 3.21 Mil/cmm (3.80-5.80) L 02/07/19 05:55 Hgb 9.9 gm/dL (12-16) L 02/07/19 05:55 Hct 30.0 % (41.0-60) L 02/07/19 05:55 MCV 93.7 fl (80-99) 02/07/19 05:55 MCH 30.8 pg (27.0-31.0) 02/07/19 05:55 MCHC Differential 32.9 pg (28.0-36.0) 02/07/19 05:55 RDW 15.2 % (11.5-20.0) 02/07/19 05:55 Plt Count 418 Th/cmm (150-400) H 02/07/19 05:55 MPV 6.6 fl 02/07/19 05:55 Add Manual Diff YES 02/04/19 13:25 Neutrophils % 66.2 % (40.0-80.0) 02/07/19 05:55 Lymphocytes % 22.3 % (20.0-50.0) 02/07/19 05:55 Monocytes % 7.3 % (2.0-10.0) 02/07/19 05:55 Eosinophils % 3.6 % (0.0-5.0) 02/07/19 05:55 Basophils % 0.6 % (0.0-2.0) 02/07/19 05:55 Neutrophils (Manual) 92 % (40-80) H 02/04/19 13:25 Lymphocytes 4 % (20-50) L 02/04/19 13:25 Monocytes 4 % (2-10) 02/04/19 13:25 PT 9.9 SECONDS (9.5-11.5) 02/04/19 13:25 INR 0.95 (0.5-1.4) 02/04/19 13:25 PTT (Actin FS) 29.6 SECONDS (26.0-38.0) 02/04/19 13:25 Sodium 149 mEq/L (136-145) H 02/07/19 05:55 Potassium 3.7 mEq/L (3.5-5.1) 02/07/19 05:55 Chloride 116 mEq/L (98-107) H 02/07/19 05:55 Carbon Dioxide 23.1 mEq/L (21.0-31.0) 02/07/19 05:55 Anion Gap 13.6 (7.0-16.0) 02/07/19 05:55 BUN 12 mg/dL (7-25) 02/07/19 05:55 Creatinine 0.9 mg/dL (0.7-1.3) 02/07/19 05:55 Est GFR ( Amer) TNP 02/07/19 05:55 Est GFR (Non-Af Amer) TNP 02/07/19 05:55 BUN/Creatinine Ratio 13.3 02/07/19 05:55 Glucose 115 mg/dL (70-105) H 02/07/19 05:55 POC Glucose 145 MG/DL (70 - 105) H 02/07/19 11:47 Whole Bld Lactic Acid 1.64 mmol/L (0.60-1.99) 02/04/19 15:25 Calcium 9.1 mg/dL (8.6-10.3) 02/07/19 05:55 Total Bilirubin 0.4 mg/dL (0.3-1.0) 02/05/19 04:15 AST 22 U/L (13-39) 02/05/19 04:15 ALT 8 U/L (7-52) 02/05/19 04:15 Alkaline Phosphatase 93 U/L (34-104) 02/05/19 04:15 Troponin I 0.16 ng/mL (0.01-0.05) H* D 02/05/19 04:15 Total Protein 6.1 gm/dL (6.0-8.3) 02/05/19 04:15 Albumin 3.1 gm/dL (4.2-5.5) L 02/05/19 04:15 Globulin 3.0 gm/dL 02/05/19 04:15 Albumin/Globulin Ratio 1.0 (1.0-1.8) 02/05/19 04:15 Urine Source RAO PORT 02/04/19 12:30 Urine Color YELLOW 02/04/19 12:30 Urine Clarity CLOUDY (CLEAR) 02/04/19 12:30 Urine pH 8.5 (4.6 - 8.0) 02/04/19 12:30 Ur Specific [place] 1.015 (1.005-1.030) 02/04/19 12:30 Urine Protein >=300 mg/dL (NEGATIVE) 02/04/19 12:30 Urine Glucose (UA) NEGATIVE mg/dL (NEGATIVE) 02/04/19 12:30 Urine Ketones TRACE mg/dL (NEGATIVE) 02/04/19 12:30 Urine Blood LARGE (NEGATIVE) H 02/04/19 12:30 Urine Nitrate NEGATIVE (NEGATIVE) 02/04/19 12:30 Urine Bilirubin NEGATIVE (NEGATIVE) 02/04/19 12:30 Urine Urobilinogen 1.0 E.U./dL (0.2 - 1.0) 02/04/19 12:30 Ur Leukocyte Esterase LARGE (NEGATIVE) H 02/04/19 12:30 Urine RBC 10-25 /hpf (0-5) H 02/04/19 12:30 Urine WBC 50-100 /hpf (0-5) H 02/04/19 12:30 Ur Epithelial Cells NONE SEEN /lpf (FEW) 02/04/19 12:30 Urine Bacteria MANY /hpf (NONE SEEN) H 02/04/19 12:30 - Physical Exam Vitals and I&O: Vital Signs Temp 96.8 F 02/07/19 06:00 Pulse 75 02/07/19 10:40 Resp 18 02/07/19 10:40 BP 163/78 02/07/19 08:24 Pulse Ox 97 02/07/19 10:40 Intake & Output 02/06/19 02/07/19 02/07/19 18:59 06:59 18:59 Intake Total 1130 300 Output Total 550 Balance 1130 -250 Weight (lbs) 68.492 kg 68.492 kg Intake: Intake, IV Amount 1050 100 D5-0.45NS 1,000 ml @ 50 1000 mls/hr IV .Q20H [facility] Rx#: [id number] Piperacillin Sodium/ 50 100 Tazobact 4.5 gm In Sodium Chloride 0.9% 50 ml @ 100 mls/hr IV Q8HR [facility] Rx #:[id number] Oral 80 200 Output: Urine 550 Other: # Voids 1 # Bowel Movements 1 Weight Source Bedscale Bedscale Active Medications: Current Medications Albuterol Sulfate (Albuterol 2.5mg/3ml Neb Ud) 2.5 mg HHN QIDRT [facility] Stop: 04/06/19 14:59 Last Admin: 02/07/19 10:40 Dose: 2.5 mg Aspirin (Aspirin Chewable) 81 mg PO DAILY [facility] Stop: 04/07/19 08:59 Last Admin: 02/07/19 08:18 Dose: 81 mg Carbidopa/Levodopa (Sinemet 25mg-100 Mg) 1 tab PO QID [facility] Stop: 04/06/19 16:59 Last Admin: 02/07/19 08:18 Dose: 1 tab [place] Oil/[place] Balsam/Trypsin (Venelex) 1 appl TP DAILY [facility] Stop: 04/07/19 08:59 Last Admin: 02/06/19 09:11 Dose: 1 appl Chlorpromazine (Thorazine) 12.5 mg PO Q8H PRN; Protocol PRN Reason: Hiccups Stop: 04/06/19 13:38 Citalopram Hydrobromide (Celexa) 10 mg PO DAILY [facility] Stop: 04/07/19 08:59 Last Admin: 02/07/19 08:18 Dose: 10 mg Dextrose (D50w) 50 ml IVP PRN PRN PRN Reason: B.S < 70 MG/DL Stop: 04/05/19 20:03 Enoxaparin Sodium (Lovenox) 40 mg SUBQ DAILY [facility] Stop: 04/07/19 08:59 Last Admin: 02/07/19 08:18 Dose: 40 mg Hydralazine HCl (Apresoline) 25 mg PO Q8H [facility] Stop: 04/06/19 13:44 Last Admin: 02/07/19 05:37 Dose: 25 mg Dextrose/Sodium Chloride (D5-0.45ns) 1,000 mls @ 50 mls/hr IV .Q20H [facility] Stop: 04/05/19 20:00 Last Admin: 02/07/19 05:42 Dose: 50 mls/hr Piperacillin Sod/Tazobactam (Sod 4.5 gm/ Sodium Chloride) 50 mls @ 100 mls/hr IV Q8HR [facility] Stop: 04/06/19 12:59 Last Infusion: 02/07/19 06:48 Dose: Infused Insulin Human Lispro (Humalog Insulin Sliding Scale) 0 units SUBQ ACHS [facility]; Protocol Stop: 04/05/19 17:28 Last Admin: 02/07/19 12:00 Dose: Not Given Ipratropium [place] (Atrovent Neb 0.5mg/2.5ml) 0.5 mg HHN QIDRT [facility] Stop: 04/06/19 14:59 Last Admin: 02/07/19 10:40 Dose: 0.5 mg Lactobacillus Rhamnosus (Culturelle 15b) 1 each PO DAILY [facility] Stop: 04/07/19 08:59 Last Admin: 02/07/19 08:18 Dose: 1 each Levothyroxine Sodium (Synthroid) 0.1 mg PO QDAC [facility] Stop: 04/07/19 07:29 Last Admin: 02/07/19 06:45 Dose: 0.1 mg Lisinopril (Zestril) 10 mg PO DAILY [facility] Stop: 04/07/19 08:59 Last Admin: 02/07/19 08:24 Dose: 10 mg Memantine (Namenda) 10 mg PO DAILY [facility] Stop: 04/07/19 08:59 Last Admin: 02/07/19 08:18 Dose: 10 mg Oxybutynin Chloride (Ditropan) 5 mg PO TID [facility] Stop: 04/06/19 13:59 Last Admin: 02/07/19 08:18 Dose: 5 mg Tamsulosin HCl (Flomax) 0.4 mg PO HS [facility] Stop: 04/06/19 20:59 Last Admin: 02/06/19 21:43 Dose: 0.4 mg Theophylline (Lior-Dur) 200 mg PO Q12H [facility] Stop: 04/06/19 13:59 Last Admin: 02/07/19 02:21 Dose: Not Given General: No acute distress Neck: Supple, +2 carotid pulse wo bruit Cardiovascular: Regular rate, Normal S1, Normal S2, Systolic murmurs Abdomen: Bowel sounds, Soft Extremities: Edema, Pulses (normal) Neurological: Strength at 5/5 X4 ext, Normal tone, Cranial nerves 3-12 NL, Reflexes 2+, Other (left-sided weakness) Assessment/Plan - Problem List Patient Problems: All Active Problems FEVER, CONGESTION, ELEVATED WBC (Acute) FEVER, CONGESTION, ELEVATED WBC (Acute) - Assessment Assessment: Pneumonia Urinary tract infection Lactic acidosis Hypertension BPH Dysphagia Protein calorie malnutrition Small decubitus ulcer left heel healing Hypothyroid CVA with left-sided weakness - Plan Plan: Continue IV antibiotic present management and physical therapy Nutritional Asmnt/Malnutr-PDOC - Dietary Evaluation Malnutrition Findings (Please click <Entered> for more info): Nutritional Asmnt/Malnutrition Start: 02/05/19 11: 30 Text: Status: Complete Freq: Protocol: Document 02/05/19 11:30 LCHENG (Rec: 02/05/19 11:56 HENG [email or web address]) Nutritional Asmnt/Malnutrition Patient General Information Nutritional Screening Moderate Risk Diagnosis early sepsis, UTI Pertinent Medical Hx/Surgical Hx HTN, CVA/TIA, thyroid disorder , BPH Subjective Information Pt was on NPO status, pending swallow eval. admitting glucose 197 noted. Visitied pt during lunch time. BORA Edmonds reported swallow eval was done. ST recommended pureed nectar thick liquid. Diet order will start at dinner. Current Diet Order/ Nutrition Support pureed, nectar thick Pertinent Medications D5-0.45ns, humalog, piperacillin, vancomycin Pertinent Labs 02/05 Na 147, Cl 114, Glucose 120, POC 102, alb 3.1 02/04 K 3.4, BUN 30, Glucose 197, POC 124, alb 3.3 Nutritional Hx/Data Height 1.78 m Height (Calculated Centimeters) 177.8 Current Weight (lbs) 65.771 kg Weight (Calculated Kilograms) 65.8 Weight (Calculated Grams) 25456.9 [place] Body Weight 166 Body Mass Index (BMI) 20.7 Weight Status Approriate GI Symptoms GI Symptoms None Last BM 02/05 x 2 Difficult in: None Skin Integrity/Comment: left heel dry scaly red look like healing fr pressure ore Estimated Nutritional Goals BEE in Kcals: Using Current wt Calories/Kcals/Kg 25-30 Kcals Calculated 3749-9664 Protein: Using Current wt Protein g/k-1.2 Protein Calculated 66-79 Fluid: ml 1650-1980ml (1ml/kcal) Nutritional Problem 1. Problem Problem altered nutrition related labs Etiology hyperglycemia Signs/Symptoms: glucose 120-197, POC 102-124 Malnutrition Alert Is there a minimum of two criteria No selected? Query Text:Check all the applicable criteria. A minimum of two criteria are recommended for diagnosis of either severe or non-severe malnutrition. Malnutrition Related to Morbid Obesity Malnutrition related to morbid obesity No Intervention/Recommendation Comments 1. Continue with pureed nectar thick liquid diet per ST recommendation. Consider adding CCHO diet if gluocse continue elevated and check A1c to assess the need for CCHO diet. 2. Monitor PO intake, wt, labs and skin integrity 3. F/U as high risk in 2-3 days Expected Outcomes/Goals Expected Outcomes/Goals 1. PO intake to meet at least 75% of nutritional needs. 2. Wt stability, skin to remain intact, labs to approach WNL.
[2019-02-07] MEDS: Venelex 60gm Tube TP SCH (14:36)
--- NOTE | 2019-02-07 17:56 | Internal Medicine Prog Note ---
Internal Medicine Subjective - Subjective Service Date: 02/07/19 Patient is:: awake, in bed Per staff patient has:: no adverse event, no episodes of fall Internal Medicine Objective - Results Result Diagrams: 02/07/19 05:55 02/07/19 05:55 Recent Labs: Laboratory Last Values WBC 7.2 Th/cmm (4.8-10.8) 02/07/19 05:55 RBC 3.21 Mil/cmm (3.80-5.80) L 02/07/19 05:55 Hgb 9.9 gm/dL (12-16) L 02/07/19 05:55 Hct 30.0 % (41.0-60) L 02/07/19 05:55 MCV 93.7 fl (80-99) 02/07/19 05:55 MCH 30.8 pg (27.0-31.0) 02/07/19 05:55 MCHC Differential 32.9 pg (28.0-36.0) 02/07/19 05:55 RDW 15.2 % (11.5-20.0) 02/07/19 05:55 Plt Count 418 Th/cmm (150-400) H 02/07/19 05:55 MPV 6.6 fl 02/07/19 05:55 Add Manual Diff YES 02/04/19 13:25 Neutrophils % 66.2 % (40.0-80.0) 02/07/19 05:55 Lymphocytes % 22.3 % (20.0-50.0) 02/07/19 05:55 Monocytes % 7.3 % (2.0-10.0) 02/07/19 05:55 Eosinophils % 3.6 % (0.0-5.0) 02/07/19 05:55 Basophils % 0.6 % (0.0-2.0) 02/07/19 05:55 Neutrophils (Manual) 92 % (40-80) H 02/04/19 13:25 Lymphocytes 4 % (20-50) L 02/04/19 13:25 Monocytes 4 % (2-10) 02/04/19 13:25 PT 9.9 SECONDS (9.5-11.5) 02/04/19 13:25 INR 0.95 (0.5-1.4) 02/04/19 13:25 PTT (Actin FS) 29.6 SECONDS (26.0-38.0) 02/04/19 13:25 Sodium 149 mEq/L (136-145) H 02/07/19 05:55 Potassium 3.7 mEq/L (3.5-5.1) 02/07/19 05:55 Chloride 116 mEq/L (98-107) H 02/07/19 05:55 Carbon Dioxide 23.1 mEq/L (21.0-31.0) 02/07/19 05:55 Anion Gap 13.6 (7.0-16.0) 02/07/19 05:55 BUN 12 mg/dL (7-25) 02/07/19 05:55 Creatinine 0.9 mg/dL (0.7-1.3) 02/07/19 05:55 Est GFR ( Amer) TNP 02/07/19 05:55 Est GFR (Non-Af Amer) TNP 02/07/19 05:55 BUN/Creatinine Ratio 13.3 02/07/19 05:55 Glucose 115 mg/dL (70-105) H 02/07/19 05:55 POC Glucose 130 MG/DL (70 - 105) H 02/07/19 16:47 Whole Bld Lactic Acid 1.64 mmol/L (0.60-1.99) 02/04/19 15:25 Calcium 9.1 mg/dL (8.6-10.3) 02/07/19 05:55 Total Bilirubin 0.4 mg/dL (0.3-1.0) 02/05/19 04:15 AST 22 U/L (13-39) 02/05/19 04:15 ALT 8 U/L (7-52) 02/05/19 04:15 Alkaline Phosphatase 93 U/L (34-104) 02/05/19 04:15 Troponin I 0.16 ng/mL (0.01-0.05) H* D 02/05/19 04:15 Total Protein 6.1 gm/dL (6.0-8.3) 02/05/19 04:15 Albumin 3.1 gm/dL (4.2-5.5) L 02/05/19 04:15 Globulin 3.0 gm/dL 02/05/19 04:15 Albumin/Globulin Ratio 1.0 (1.0-1.8) 02/05/19 04:15 Urine Source RAO PORT 02/04/19 12:30 Urine Color YELLOW 02/04/19 12:30 Urine Clarity CLOUDY (CLEAR) 02/04/19 12:30 Urine pH 8.5 (4.6 - 8.0) 02/04/19 12:30 Ur Specific [place] 1.015 (1.005-1.030) 02/04/19 12:30 Urine Protein >=300 mg/dL (NEGATIVE) 02/04/19 12:30 Urine Glucose (UA) NEGATIVE mg/dL (NEGATIVE) 02/04/19 12:30 Urine Ketones TRACE mg/dL (NEGATIVE) 02/04/19 12:30 Urine Blood LARGE (NEGATIVE) H 02/04/19 12:30 Urine Nitrate NEGATIVE (NEGATIVE) 02/04/19 12:30 Urine Bilirubin NEGATIVE (NEGATIVE) 02/04/19 12:30 Urine Urobilinogen 1.0 E.U./dL (0.2 - 1.0) 02/04/19 12:30 Ur Leukocyte Esterase LARGE (NEGATIVE) H 02/04/19 12:30 Urine RBC 10-25 /hpf (0-5) H 02/04/19 12:30 Urine WBC 50-100 /hpf (0-5) H 02/04/19 12:30 Ur Epithelial Cells NONE SEEN /lpf (FEW) 02/04/19 12:30 Urine Bacteria MANY /hpf (NONE SEEN) H 02/04/19 12:30 - Physical Exam Vitals and I&O: Vital Signs Temp 98.7 F 02/07/19 16:00 Pulse 74 02/07/19 16:00 Resp 18 02/07/19 16:00 BP 147/68 02/07/19 16:00 Pulse Ox 98 02/07/19 16:00 Intake & Output 02/06/19 02/07/19 02/07/19 18:59 06:59 18:59 Intake Total 1130 300 50 Output Total 550 Balance 1130 -250 50 Weight (lbs) 151 lb 151 lb Intake: Intake, IV Amount 1050 100 50 D5-0.45NS 1,000 ml @ 50 1000 mls/hr IV .Q20H [facility] Rx#: [id number] Piperacillin Sodium/ 50 100 50 Tazobact 4.5 gm In Sodium Chloride 0.9% 50 ml @ 100 mls/hr IV Q8HR [facility] Rx #:[id number] Oral 80 200 Output: Urine 550 Other: # Voids 1 # Bowel Movements 1 Weight Source Bedscale Bedscale Active Medications: Current Medications Albuterol Sulfate (Albuterol 2.5mg/3ml Neb Ud) 2.5 mg HHN QIDRT [facility] Stop: 04/06/19 14:59 Last Admin: 02/07/19 15:02 Dose: 2.5 mg Aspirin (Aspirin Chewable) 81 mg PO DAILY [facility] Stop: 04/07/19 08:59 Last Admin: 02/07/19 08:18 Dose: 81 mg Carbidopa/Levodopa (Sinemet 25mg-100 Mg) 1 tab PO QID [facility] Stop: 04/06/19 16:59 Last Admin: 02/07/19 16:46 Dose: 1 tab [place] Oil/[place] Balsam/Trypsin (Venelex) 1 appl TP DAILY [facility] Stop: 04/07/19 08:59 Last Admin: 02/07/19 14:36 Dose: 1 appl Chlorpromazine (Thorazine) 12.5 mg PO Q8H PRN; Protocol PRN Reason: Hiccups Stop: 04/06/19 13:38 Citalopram Hydrobromide (Celexa) 10 mg PO DAILY [facility] Stop: 04/07/19 08:59 Last Admin: 02/07/19 08:18 Dose: 10 mg Dextrose (D50w) 50 ml IVP PRN PRN PRN Reason: B.S < 70 MG/DL Stop: 04/05/19 20:03 Enoxaparin Sodium (Lovenox) 40 mg SUBQ DAILY [facility] Stop: 04/07/19 08:59 Last Admin: 02/07/19 08:18 Dose: 40 mg Hydralazine HCl (Apresoline) 25 mg PO Q8H [facility] Stop: 04/06/19 13:44 Last Admin: 02/07/19 12:58 Dose: Not Given Dextrose/Sodium Chloride (D5-0.45ns) 1,000 mls @ 50 mls/hr IV .Q20H [facility] Stop: 04/05/19 20:00 Last Admin: 02/07/19 05:42 Dose: 50 mls/hr Piperacillin Sod/Tazobactam (Sod 4.5 gm/ Sodium Chloride) 50 mls @ 100 mls/hr IV Q8HR [facility] Stop: 04/06/19 12:59 Last Infusion: 02/07/19 13:42 Dose: Infused Insulin Human Lispro (Humalog Insulin Sliding Scale) 0 units SUBQ ACHS [facility]; Protocol Stop: 04/05/19 17:28 Last Admin: 02/07/19 12:00 Dose: Not Given Ipratropium [place] (Atrovent Neb 0.5mg/2.5ml) 0.5 mg HHN QIDRT [facility] Stop: 04/06/19 14:59 Last Admin: 02/07/19 15:02 Dose: 0.5 mg Lactobacillus Rhamnosus (Culturelle 15b) 1 each PO DAILY [facility] Stop: 04/07/19 08:59 Last Admin: 02/07/19 08:18 Dose: 1 each Levothyroxine Sodium (Synthroid) 0.1 mg PO QDAC [facility] Stop: 04/07/19 07:29 Last Admin: 02/07/19 06:45 Dose: 0.1 mg Lisinopril (Zestril) 10 mg PO DAILY [facility] Stop: 04/07/19 08:59 Last Admin: 02/07/19 08:24 Dose: 10 mg Memantine (Namenda) 10 mg PO DAILY [facility] Stop: 04/07/19 08:59 Last Admin: 02/07/19 08:18 Dose: 10 mg Oxybutynin Chloride (Ditropan) 5 mg PO TID [facility] Stop: 04/06/19 13:59 Last Admin: 02/07/19 13:13 Dose: 5 mg Tamsulosin HCl (Flomax) 0.4 mg PO HS [facility] Stop: 04/06/19 20:59 Last Admin: 02/06/19 21:43 Dose: 0.4 mg Theophylline (Lior-Dur) 200 mg PO Q12H [facility] Stop: 04/06/19 13:59 Last Admin: 02/07/19 13:13 Dose: 200 mg General: weak HEENT: NC/AT Neck: Supple, No JVD Lungs: wheezing, ronchi, other (pneumonia.) Cardiovascular: RRR, Normal S1 Abdomen: soft, non-tender Extremities: clear Neurological: no change Internal Medicine Assmt/Plan - Assessment Assessment: Leukocytosis. Pneumonia. UTI. BPH. CVA with Left sided-weakness. HTN. Cardiomegaly. Atheroscelosis. - Plan Plan: continue ivabx am labs continue current plan of care Nutritional Asmnt/Malnutr-PDOC - Dietary Evaluation Malnutrition Findings (Please click <Entered> for more info): Nutritional Asmnt/Malnutrition Start: 02/05/19 11: 30 Text: Status: Complete Freq: Protocol: Document 02/05/19 11:30 AUBREY (Rec: 02/05/19 11:56 LCHENG [email or web address]) Nutritional Asmnt/Malnutrition Patient General Information Nutritional Screening Moderate Risk Diagnosis early sepsis, UTI Pertinent Medical Hx/Surgical Hx HTN, CVA/TIA, thyroid disorder , BPH Subjective Information Pt was on NPO status, pending swallow eval. admitting glucose 197 noted. Visitied pt during lunch time. BORA Edmonds reported swallow eval was done. ST recommended pureed nectar thick liquid. Diet order will start at dinner. Current Diet Order/ Nutrition Support pureed, nectar thick Pertinent Medications D5-0.45ns, humalog, piperacillin, vancomycin Pertinent Labs 02/05 Na 147, Cl 114, Glucose 120, POC 102, alb 3.1 02/04 K 3.4, BUN 30, Glucose 197, POC 124, alb 3.3 Nutritional Hx/Data Height 5 ft 10 in Height (Calculated Centimeters) 177.8 Current Weight (lbs) 145 lb Weight (Calculated Kilograms) 65.8 Weight (Calculated Grams) 46167.9 [place] Body Weight 166 Body Mass Index (BMI) 20.7 Weight Status Approriate GI Symptoms GI Symptoms None Last BM 02/05 x 2 Difficult in: None Skin Integrity/Comment: left heel dry scaly red look like healing fr pressure ore Estimated Nutritional Goals BEE in Kcals: Using Current wt Calories/Kcals/Kg 25-30 Kcals Calculated 7308-7070 Protein: Using Current wt Protein g/k-1.2 Protein Calculated 66-79 Fluid: ml 1650-1980ml (1ml/kcal) Nutritional Problem 1. Problem Problem altered nutrition related labs Etiology hyperglycemia Signs/Symptoms: glucose 120-197, POC 102-124 Malnutrition Alert Is there a minimum of two criteria No selected? Query Text:Check all the applicable criteria. A minimum of two criteria are recommended for diagnosis of either severe or non-severe malnutrition. Malnutrition Related to Morbid Obesity Malnutrition related to morbid obesity No Intervention/Recommendation Comments 1. Continue with pureed nectar thick liquid diet per ST recommendation. Consider adding CCHO diet if gluocse continue elevated and check A1c to assess the need for CCHO diet. 2. Monitor PO intake, wt, labs and skin integrity 3. F/U as high risk in 2-3 days Expected Outcomes/Goals Expected Outcomes/Goals 1. PO intake to meet at least 75% of nutritional needs. 2. Wt stability, skin to remain intact, labs to approach WNL.
[2019-02-08] MEDS: INSULIN LISPRO SLIDING SCALE 100 UNITS/ML UNIT SUBQ SCH ×3 (00:26→13:58)
[2019-02-08] MEDS: D5-0.45NS 1,000 ML IV SCH ×3 (00:47→06:30)
[2019-02-08] MEDS: Theophylline 100 mg ER Tab PO SCH ×2 (02:18→14:05)
[2019-02-08] MEDS: Levothyroxine 0.1 Mg Tab PO SCH (06:29)
[2019-02-08 06:31] LABS: % BASOPHILS 0.3 % (0.0-2.0); % EOSINOPHILS 5.4 % (0.0-5.0); % LYMPHOCYTES 19.4 % (20.0-50.0); % MONOCYTES 6.9 % (2.0-10.0); EOSINOPHILE ABSOLUTE 0.4 Th/cmm (0.1-0.4); HEMATOCRIT 29.1 % (41.0-60); HEMOGLOBIN 9.7 gm/dL (12-16); LYMPHOCYTE ABSOLUTE 1.5 Th/cmm (1.5-3.0); MEAN CELL VOLUME 93.1 fl (80-99); MEAN CORPUSCULAR HEMOGLOBIN 31.1 pg (27.0-31.0); MEAN CORPUSCULAR HGB CONC 33.4 pg (28.0-36.0); MEAN PLATELET VOLUME 6.9 fl; MONOCYTE ABSOLUTE 0.5 Th/cmm (0.3-1.0); NEUTROPHILE ABSOLUTE 5.3 Th/cmm (1.8-8.0); PLATELET COUNT 444 Th/cmm (150-400); RED BLOOD COUNT 3.13 Mil/cmm (3.80-5.80); RED CELL DISTRIBUTION WIDTH 14.9 % (11.5-20.0); WHITE BLOOD COUNT 7.7 Th/cmm (4.8-10.8)
[2019-02-08 06:44] LABS: ANION GAP 13.3 (7.0-16.0); BUN - UREA NITROGEN 9 mg/dL (7-25); CALCIUM SERUM 9.1 mg/dL (8.6-10.3); CARBON DIOXIDE 24.6 mEq/L (21.0-31.0); CHLORIDE 114 mEq/L (98-107); CREATININE - SERUM 0.8 mg/dL (0.7-1.3); GLUCOSE 117 mg/dL (70-105); POTASSIUM SERUM 3.9 mEq/L (3.5-5.1); SODIUM SERUM 148 mEq/L (136-145)
[2019-02-08] MEDS: Ipratropium Neb 0.5 mg/2.5 mL UD HHN SCH ×3 (07:15→15:12)
[2019-02-08] MEDS: Albuterol Nebulizer 2.5mg/3mL HHN SCH ×3 (07:16→15:12)
[2019-02-08] MEDS: Lactobacillus Rhamnosus GG 15 Billion CFU CAP.SPRINK PO SCH (08:29)
[2019-02-08] MEDS: Aspirin 81mg Chewable Tab PO SCH (08:31)
[2019-02-08] MEDS: Venelex 60gm Tube TP SCH (08:33)
[2019-02-08] MEDS: Enoxaparin 40 mg/0.4 mL 0.4mL Syr SUBQ SCH (08:34)
--- NOTE | 2019-02-08 11:09 | Infectious Disease Prog Note ---
Infectious Disease Subjective - Review of Systems Service Date: 02/08/19 Subjective: There is no fever./ Infectious Disease Objective - Results Result Diagrams: 02/08/19 05:30 02/08/19 05:30 Recent Labs: Laboratory Last Values WBC 7.7 Th/cmm (4.8-10.8) 02/08/19 05:30 RBC 3.13 Mil/cmm (3.80-5.80) L 02/08/19 05:30 Hgb 9.7 gm/dL (12-16) L 02/08/19 05:30 Hct 29.1 % (41.0-60) L 02/08/19 05:30 MCV 93.1 fl (80-99) 02/08/19 05:30 MCH 31.1 pg (27.0-31.0) H 02/08/19 05:30 MCHC Differential 33.4 pg (28.0-36.0) 02/08/19 05:30 RDW 14.9 % (11.5-20.0) 02/08/19 05:30 Plt Count 444 Th/cmm (150-400) H 02/08/19 05:30 MPV 6.9 fl 02/08/19 05:30 Add Manual Diff YES 02/04/19 13:25 Neutrophils % 68.0 % (40.0-80.0) 02/08/19 05:30 Lymphocytes % 19.4 % (20.0-50.0) L 02/08/19 05:30 Monocytes % 6.9 % (2.0-10.0) 02/08/19 05:30 Eosinophils % 5.4 % (0.0-5.0) H 02/08/19 05:30 Basophils % 0.3 % (0.0-2.0) 02/08/19 05:30 Neutrophils (Manual) 92 % (40-80) H 02/04/19 13:25 Lymphocytes 4 % (20-50) L 02/04/19 13:25 Monocytes 4 % (2-10) 02/04/19 13:25 PT 9.9 SECONDS (9.5-11.5) 02/04/19 13:25 INR 0.95 (0.5-1.4) 02/04/19 13:25 PTT (Actin FS) 29.6 SECONDS (26.0-38.0) 02/04/19 13:25 Sodium 148 mEq/L (136-145) H 02/08/19 05:30 Potassium 3.9 mEq/L (3.5-5.1) 02/08/19 05:30 Chloride 114 mEq/L (98-107) H 02/08/19 05:30 Carbon Dioxide 24.6 mEq/L (21.0-31.0) 02/08/19 05:30 Anion Gap 13.3 (7.0-16.0) 02/08/19 05:30 BUN 9 mg/dL (7-25) 02/08/19 05:30 Creatinine 0.8 mg/dL (0.7-1.3) 02/08/19 05:30 Est GFR ( Amer) TNP 02/08/19 05:30 Est GFR (Non-Af Amer) TNP 02/08/19 05:30 BUN/Creatinine Ratio 11.3 02/08/19 05:30 Glucose 117 mg/dL (70-105) H 02/08/19 05:30 POC Glucose 92 MG/DL (70 - 105) 02/08/19 06:25 Whole Bld Lactic Acid 1.64 mmol/L (0.60-1.99) 02/04/19 15:25 Calcium 9.1 mg/dL (8.6-10.3) 02/08/19 05:30 Total Bilirubin 0.4 mg/dL (0.3-1.0) 02/05/19 04:15 AST 22 U/L (13-39) 02/05/19 04:15 ALT 8 U/L (7-52) 02/05/19 04:15 Alkaline Phosphatase 93 U/L (34-104) 02/05/19 04:15 Troponin I 0.16 ng/mL (0.01-0.05) H* D 02/05/19 04:15 Total Protein 6.1 gm/dL (6.0-8.3) 02/05/19 04:15 Albumin 3.1 gm/dL (4.2-5.5) L 02/05/19 04:15 Globulin 3.0 gm/dL 02/05/19 04:15 Albumin/Globulin Ratio 1.0 (1.0-1.8) 02/05/19 04:15 Urine Source RAO PORT 02/04/19 12:30 Urine Color YELLOW 02/04/19 12:30 Urine Clarity CLOUDY (CLEAR) 02/04/19 12:30 Urine pH 8.5 (4.6 - 8.0) 02/04/19 12:30 Ur Specific [place] 1.015 (1.005-1.030) 02/04/19 12:30 Urine Protein >=300 mg/dL (NEGATIVE) 02/04/19 12:30 Urine Glucose (UA) NEGATIVE mg/dL (NEGATIVE) 02/04/19 12:30 Urine Ketones TRACE mg/dL (NEGATIVE) 02/04/19 12:30 Urine Blood LARGE (NEGATIVE) H 02/04/19 12:30 Urine Nitrate NEGATIVE (NEGATIVE) 02/04/19 12:30 Urine Bilirubin NEGATIVE (NEGATIVE) 02/04/19 12:30 Urine Urobilinogen 1.0 E.U./dL (0.2 - 1.0) 02/04/19 12:30 Ur Leukocyte Esterase LARGE (NEGATIVE) H 02/04/19 12:30 Urine RBC 10-25 /hpf (0-5) H 02/04/19 12:30 Urine WBC 50-100 /hpf (0-5) H 02/04/19 12:30 Ur Epithelial Cells NONE SEEN /lpf (FEW) 02/04/19 12:30 Urine Bacteria MANY /hpf (NONE SEEN) H 02/04/19 12:30 - Physical Exam Vitals and I&O: Vital Signs Temp 97.0 F 02/08/19 08:00 Pulse 62 02/08/19 08:29 Resp 20 02/08/19 08:00 BP 142/65 02/08/19 08:29 Pulse Ox 94 02/08/19 08:00 Intake & Output 02/07/19 02/08/19 02/08/19 18:59 06:59 18:59 Intake Total 1000 1289.999 Balance 1000 1289.999 Weight (lbs) 68.492 kg Intake: Intake, IV Amount 50 1289.999 D5-0.45NS 1,000 ml @ 50 1239.999 mls/hr IV .Q20H [facility] Rx#: [id number] Piperacillin Sodium/ 50 50 Tazobact 4.5 gm In Sodium Chloride 0.9% 50 ml @ 100 mls/hr IV Q8HR [facility] Rx #:[id number] Oral 950 Other: # Voids 3 # Bowel Movements 1 Weight Source Bedscale Active Medications: Current Medications Albuterol Sulfate (Albuterol 2.5mg/3ml Neb Ud) 2.5 mg HHN QIDRT [facility] Stop: 04/06/19 14:59 Last Admin: 02/08/19 07:16 Dose: 2.5 mg Aspirin (Aspirin Chewable) 81 mg PO DAILY [facility] Stop: 04/07/19 08:59 Last Admin: 02/08/19 08:31 Dose: 81 mg Carbidopa/Levodopa (Sinemet 25mg-100 Mg) 1 tab PO QID [facility] Stop: 04/06/19 16:59 Last Admin: 02/08/19 08:31 Dose: 1 tab [place] Oil/[place] Balsam/Trypsin (Venelex) 1 appl TP DAILY [facility] Stop: 04/07/19 08:59 Last Admin: 02/08/19 08:33 Dose: 1 appl Chlorpromazine (Thorazine) 12.5 mg PO Q8H PRN; Protocol PRN Reason: Hiccups Stop: 04/06/19 13:38 Citalopram Hydrobromide (Celexa) 10 mg PO DAILY [facility] Stop: 04/07/19 08:59 Last Admin: 02/08/19 08:31 Dose: 10 mg Dextrose (D50w) 50 ml IVP PRN PRN PRN Reason: B.S < 70 MG/DL Stop: 04/05/19 20:03 Enoxaparin Sodium (Lovenox) 40 mg SUBQ DAILY [facility] Stop: 04/07/19 08:59 Last Admin: 02/08/19 08:34 Dose: 40 mg Hydralazine HCl (Apresoline) 25 mg PO Q8H [facility] Stop: 04/06/19 13:44 Last Admin: 02/08/19 05:57 Dose: 25 mg Dextrose/Sodium Chloride (D5-0.45ns) 1,000 mls @ 50 mls/hr IV .Q20H [facility] Stop: 04/05/19 20:00 Last Admin: 02/08/19 06:30 Dose: 50 mls/hr Piperacillin Sod/Tazobactam (Sod 4.5 gm/ Sodium Chloride) 50 mls @ 100 mls/hr IV Q8HR [facility] Stop: 04/06/19 12:59 Last Admin: 02/08/19 05:57 Dose: 100 mls/hr Insulin Human Lispro (Humalog Insulin Sliding Scale) 0 units SUBQ ACHS [facility]; Protocol Stop: 04/05/19 17:28 Last Admin: 02/08/19 07:01 Dose: Not Given Ipratropium [place] (Atrovent Neb 0.5mg/2.5ml) 0.5 mg HHN QIDRT [facility] Stop: 04/06/19 14:59 Last Admin: 02/08/19 07:15 Dose: 0.5 mg Lactobacillus Rhamnosus (Culturelle 15b) 1 each PO DAILY [facility] Stop: 04/07/19 08:59 Last Admin: 02/08/19 08:29 Dose: 1 each Levothyroxine Sodium (Synthroid) 0.1 mg PO QDAC [facility] Stop: 04/07/19 07:29 Last Admin: 02/08/19 06:29 Dose: 0.1 mg Lisinopril (Zestril) 10 mg PO DAILY [facility] Stop: 04/07/19 08:59 Last Admin: 02/08/19 08:29 Dose: 10 mg Memantine (Namenda) 10 mg PO DAILY [facility] Stop: 04/07/19 08:59 Last Admin: 02/08/19 08:31 Dose: 10 mg Oxybutynin Chloride (Ditropan) 5 mg PO TID [facility] Stop: 04/06/19 13:59 Last Admin: 02/08/19 08:29 Dose: 5 mg Tamsulosin HCl (Flomax) 0.4 mg PO HS [facility] Stop: 04/06/19 20:59 Last Admin: 02/07/19 21:43 Dose: 0.4 mg Theophylline (Lior-Dur) 200 mg PO Q12H [facility] Stop: 04/06/19 13:59 Last Admin: 02/08/19 02:18 Dose: 200 mg General: no acute distress, well developed, well nourished HEENT: atraumatic, normocephalic, PERRLA, EOMI, other Neck: supple, no thyromegaly Cardiovascular: S1S2, regular Lungs: clear to auscultation bilaterally, clear to percussion Abdomen: soft, no tender, no distended Extremities: no cyanosis, no clubbing, no edema Neurological: awake, alert, other (aphasic) Skin: intact Infectious Disease Assmt/Plan - Problem List Patient Problems: All Active Problems FEVER, CONGESTION, ELEVATED WBC (Acute) FEVER, CONGESTION, ELEVATED WBC (Acute) - Assessment Assessment: 1. Leukocytosis, may be reactive to the lactic acidosis may be sepsis versus nonseptic, noninfectious etiology like dehydration, but creatinine is normal. 2. Pneumonia. 3. Urinary tract infection. 4. Benign prostatic hypertrophy. 5. Cerebrovascular accident with left-sided weakness. - Plan Plan: May dc patient to subacute facility on Bactrim and levaquin po for 7 days. Nutritional Asmnt/Malnutr-PDOC - Dietary Evaluation Malnutrition Findings (Please click <Entered> for more info): Nutritional Asmnt/Malnutrition Start: 02/05/19 11: 30 Text: Status: Complete Freq: Protocol: Document 02/05/19 11:30 [facility] (Rec: 02/05/19 11:56 LCHEN [email or web address]) Nutritional Asmnt/Malnutrition Patient General Information Nutritional Screening Moderate Risk Diagnosis early sepsis, UTI Pertinent Medical Hx/Surgical Hx HTN, CVA/TIA, thyroid disorder , BPH Subjective Information Pt was on NPO status, pending swallow eval. admitting glucose 197 noted. Visitied pt during lunch time. BORA Edmonds reported swallow eval was done. ST recommended pureed nectar thick liquid. Diet order will start at dinner. Current Diet Order/ Nutrition Support pureed, nectar thick Pertinent Medications D5-0.45ns, humalog, piperacillin, vancomycin Pertinent Labs 02/05 Na 147, Cl 114, Glucose 120, POC 102, alb 3.1 02/04 K 3.4, BUN 30, Glucose 197, POC 124, alb 3.3 Nutritional Hx/Data Height 1.78 m Height (Calculated Centimeters) 177.8 Current Weight (lbs) 65.771 kg Weight (Calculated Kilograms) 65.8 Weight (Calculated Grams) 71491.9 [place] Body Weight 166 Body Mass Index (BMI) 20.7 Weight Status Approriate GI Symptoms GI Symptoms None Last BM 02/05 x 2 Difficult in: None Skin Integrity/Comment: left heel dry scaly red look like healing fr pressure ore Estimated Nutritional Goals BEE in Kcals: Using Current wt Calories/Kcals/Kg 25-30 Kcals Calculated 8418-3290 Protein: Using Current wt Protein g/k-1.2 Protein Calculated 66-79 Fluid: ml 1650-1980ml (1ml/kcal) Nutritional Problem 1. Problem Problem altered nutrition related labs Etiology hyperglycemia Signs/Symptoms: glucose 120-197, POC 102-124 Malnutrition Alert Is there a minimum of two criteria No selected? Query Text:Check all the applicable criteria. A minimum of two criteria are recommended for diagnosis of either severe or non-severe malnutrition. Malnutrition Related to Morbid Obesity Malnutrition related to morbid obesity No Intervention/Recommendation Comments 1. Continue with pureed nectar thick liquid diet per ST recommendation. Consider adding CCHO diet if gluocse continue elevated and check A1c to assess the need for CCHO diet. 2. Monitor PO intake, wt, labs and skin integrity 3. F/U as high risk in 2-3 days Expected Outcomes/Goals Expected Outcomes/Goals 1. PO intake to meet at least 75% of nutritional needs. 2. Wt stability, skin to remain intact, labs to approach WNL.
--- NOTE | 2019-02-08 14:16 | General Progress Note ---
Subjective - Review of Systems Service Date: 02/08/19 Subjective: Patient still complained of shortness of breath Objective - Results Result Diagrams: 02/08/19 05:30 02/08/19 05:30 Recent Labs: Laboratory Last Values WBC 7.7 Th/cmm (4.8-10.8) 02/08/19 05:30 RBC 3.13 Mil/cmm (3.80-5.80) L 02/08/19 05:30 Hgb 9.7 gm/dL (12-16) L 02/08/19 05:30 Hct 29.1 % (41.0-60) L 02/08/19 05:30 MCV 93.1 fl (80-99) 02/08/19 05:30 MCH 31.1 pg (27.0-31.0) H 02/08/19 05:30 MCHC Differential 33.4 pg (28.0-36.0) 02/08/19 05:30 RDW 14.9 % (11.5-20.0) 02/08/19 05:30 Plt Count 444 Th/cmm (150-400) H 02/08/19 05:30 MPV 6.9 fl 02/08/19 05:30 Add Manual Diff YES 02/04/19 13:25 Neutrophils % 68.0 % (40.0-80.0) 02/08/19 05:30 Lymphocytes % 19.4 % (20.0-50.0) L 02/08/19 05:30 Monocytes % 6.9 % (2.0-10.0) 02/08/19 05:30 Eosinophils % 5.4 % (0.0-5.0) H 02/08/19 05:30 Basophils % 0.3 % (0.0-2.0) 02/08/19 05:30 Neutrophils (Manual) 92 % (40-80) H 02/04/19 13:25 Lymphocytes 4 % (20-50) L 02/04/19 13:25 Monocytes 4 % (2-10) 02/04/19 13:25 PT 9.9 SECONDS (9.5-11.5) 02/04/19 13:25 INR 0.95 (0.5-1.4) 02/04/19 13:25 PTT (Actin FS) 29.6 SECONDS (26.0-38.0) 02/04/19 13:25 Sodium 148 mEq/L (136-145) H 02/08/19 05:30 Potassium 3.9 mEq/L (3.5-5.1) 02/08/19 05:30 Chloride 114 mEq/L (98-107) H 02/08/19 05:30 Carbon Dioxide 24.6 mEq/L (21.0-31.0) 02/08/19 05:30 Anion Gap 13.3 (7.0-16.0) 02/08/19 05:30 BUN 9 mg/dL (7-25) 02/08/19 05:30 Creatinine 0.8 mg/dL (0.7-1.3) 02/08/19 05:30 Est GFR ( Amer) TNP 02/08/19 05:30 Est GFR (Non-Af Amer) TNP 02/08/19 05:30 BUN/Creatinine Ratio 11.3 02/08/19 05:30 Glucose 117 mg/dL (70-105) H 02/08/19 05:30 POC Glucose 109 MG/DL (70 - 105) H 02/08/19 12:07 Whole Bld Lactic Acid 1.64 mmol/L (0.60-1.99) 02/04/19 15:25 Calcium 9.1 mg/dL (8.6-10.3) 02/08/19 05:30 Total Bilirubin 0.4 mg/dL (0.3-1.0) 02/05/19 04:15 AST 22 U/L (13-39) 02/05/19 04:15 ALT 8 U/L (7-52) 02/05/19 04:15 Alkaline Phosphatase 93 U/L (34-104) 02/05/19 04:15 Troponin I 0.16 ng/mL (0.01-0.05) H* D 02/05/19 04:15 Total Protein 6.1 gm/dL (6.0-8.3) 02/05/19 04:15 Albumin 3.1 gm/dL (4.2-5.5) L 02/05/19 04:15 Globulin 3.0 gm/dL 02/05/19 04:15 Albumin/Globulin Ratio 1.0 (1.0-1.8) 02/05/19 04:15 Urine Source RAO PORT 02/04/19 12:30 Urine Color YELLOW 02/04/19 12:30 Urine Clarity CLOUDY (CLEAR) 02/04/19 12:30 Urine pH 8.5 (4.6 - 8.0) 02/04/19 12:30 Ur Specific [place] 1.015 (1.005-1.030) 02/04/19 12:30 Urine Protein >=300 mg/dL (NEGATIVE) 02/04/19 12:30 Urine Glucose (UA) NEGATIVE mg/dL (NEGATIVE) 02/04/19 12:30 Urine Ketones TRACE mg/dL (NEGATIVE) 02/04/19 12:30 Urine Blood LARGE (NEGATIVE) H 02/04/19 12:30 Urine Nitrate NEGATIVE (NEGATIVE) 02/04/19 12:30 Urine Bilirubin NEGATIVE (NEGATIVE) 02/04/19 12:30 Urine Urobilinogen 1.0 E.U./dL (0.2 - 1.0) 02/04/19 12:30 Ur Leukocyte Esterase LARGE (NEGATIVE) H 02/04/19 12:30 Urine RBC 10-25 /hpf (0-5) H 02/04/19 12:30 Urine WBC 50-100 /hpf (0-5) H 02/04/19 12:30 Ur Epithelial Cells NONE SEEN /lpf (FEW) 02/04/19 12:30 Urine Bacteria MANY /hpf (NONE SEEN) H 02/04/19 12:30 - Physical Exam Vitals and I&O: Vital Signs Temp 97.5 F 02/08/19 11:57 Pulse 56 02/08/19 14:06 Resp 18 02/08/19 12:17 BP 120/54 02/08/19 14:06 Pulse Ox 95 02/08/19 12:17 Intake & Output 02/07/19 02/08/19 02/08/19 18:59 06:59 18:59 Intake Total 1000 1339.999 Balance 1000 1339.999 Weight (lbs) 68.492 kg Intake: Intake, IV Amount 50 1339.999 D5-0.45NS 1,000 ml @ 50 1239.999 mls/hr IV .Q20H [facility] Rx#: [id number] Piperacillin Sodium/ 50 100 Tazobact 4.5 gm In Sodium Chloride 0.9% 50 ml @ 100 mls/hr IV Q8HR [facility] Rx #:[id number] Oral 950 Other: # Voids 3 # Bowel Movements 1 Weight Source Bedscale Active Medications: Current Medications Albuterol Sulfate (Albuterol 2.5mg/3ml Neb Ud) 2.5 mg HHN QIDRT [facility] Stop: 04/06/19 14:59 Last Admin: 02/08/19 12:14 Dose: 2.5 mg Aspirin (Aspirin Chewable) 81 mg PO DAILY [facility] Stop: 04/07/19 08:59 Last Admin: 02/08/19 08:31 Dose: 81 mg Carbidopa/Levodopa (Sinemet 25mg-100 Mg) 1 tab PO QID [facility] Stop: 04/06/19 16:59 Last Admin: 02/08/19 14:05 Dose: 1 tab [place] Oil/[place] Balsam/Trypsin (Venelex) 1 appl TP DAILY [facility] Stop: 04/07/19 08:59 Last Admin: 02/08/19 08:33 Dose: 1 appl Chlorpromazine (Thorazine) 12.5 mg PO Q8H PRN; Protocol PRN Reason: Hiccups Stop: 04/06/19 13:38 Citalopram Hydrobromide (Celexa) 10 mg PO DAILY [facility] Stop: 04/07/19 08:59 Last Admin: 02/08/19 08:31 Dose: 10 mg Dextrose (D50w) 50 ml IVP PRN PRN PRN Reason: B.S < 70 MG/DL Stop: 04/05/19 20:03 Enoxaparin Sodium (Lovenox) 40 mg SUBQ DAILY [facility] Stop: 04/07/19 08:59 Last Admin: 02/08/19 08:34 Dose: 40 mg Hydralazine HCl (Apresoline) 25 mg PO Q8H [facility] Stop: 04/06/19 13:44 Last Admin: 02/08/19 14:06 Dose: 25 mg Dextrose/Sodium Chloride (D5-0.45ns) 1,000 mls @ 50 mls/hr IV .Q20H [facility] Stop: 04/05/19 20:00 Last Admin: 02/08/19 06:30 Dose: 50 mls/hr Piperacillin Sod/Tazobactam (Sod 4.5 gm/ Sodium Chloride) 50 mls @ 100 mls/hr IV Q8HR [facility] Stop: 04/06/19 12:59 Last Admin: 02/08/19 14:03 Dose: 100 mls/hr Insulin Human Lispro (Humalog Insulin Sliding Scale) 0 units SUBQ ACHS [facility]; Protocol Stop: 04/05/19 17:28 Last Admin: 02/08/19 13:58 Dose: Not Given Ipratropium [place] (Atrovent Neb 0.5mg/2.5ml) 0.5 mg HHN QIDRT [facility] Stop: 04/06/19 14:59 Last Admin: 02/08/19 12:14 Dose: 0.5 mg Lactobacillus Rhamnosus (Culturelle 15b) 1 each PO DAILY [facility] Stop: 04/07/19 08:59 Last Admin: 02/08/19 08:29 Dose: 1 each Levothyroxine Sodium (Synthroid) 0.1 mg PO QDAC [facility] Stop: 04/07/19 07:29 Last Admin: 02/08/19 06:29 Dose: 0.1 mg Lisinopril (Zestril) 10 mg PO DAILY [facility] Stop: 04/07/19 08:59 Last Admin: 02/08/19 08:29 Dose: 10 mg Memantine (Namenda) 10 mg PO DAILY [facility] Stop: 04/07/19 08:59 Last Admin: 02/08/19 08:31 Dose: 10 mg Oxybutynin Chloride (Ditropan) 5 mg PO TID [facility] Stop: 04/06/19 13:59 Last Admin: 02/08/19 14:06 Dose: 5 mg Tamsulosin HCl (Flomax) 0.4 mg PO HS [facility] Stop: 04/06/19 20:59 Last Admin: 02/07/19 21:43 Dose: 0.4 mg Theophylline (Lior-Dur) 200 mg PO Q12H [facility] Stop: 04/06/19 13:59 Last Admin: 02/08/19 14:05 Dose: 200 mg General: No acute distress Neck: Supple, +2 carotid pulse wo bruit Cardiovascular: Regular rate, Normal S1, Normal S2, Systolic murmurs Abdomen: Bowel sounds, Soft Extremities: Edema, Pulses (normal) Neurological: Strength at 5/5 X4 ext, Normal tone, Cranial nerves 3-12 NL, Reflexes 2+, Other (left-sided weakness) Assessment/Plan - Problem List Patient Problems: All Active Problems FEVER, CONGESTION, ELEVATED WBC (Acute) FEVER, CONGESTION, ELEVATED WBC (Acute) - Assessment Assessment: Pneumonia Urinary tract infection Lactic acidosis Hypertension BPH Dysphagia Protein calorie malnutrition Small decubitus ulcer left heel healing Hypothyroid CVA with left-sided weakness - Plan Plan: Continue IV antibiotic present management and physical therapy Nutritional Asmnt/Malnutr-PDOC - Dietary Evaluation Malnutrition Findings (Please click <Entered> for more info): Nutritional Asmnt/Malnutrition Start: 02/05/19 11: 30 Text: Status: Complete Freq: Protocol: Document 02/05/19 11:30 [facility] (Rec: 02/05/19 11:56 HEN [email or web address]) Nutritional Asmnt/Malnutrition Patient General Information Nutritional Screening Moderate Risk Diagnosis early sepsis, UTI Pertinent Medical Hx/Surgical Hx HTN, CVA/TIA, thyroid disorder , BPH Subjective Information Pt was on NPO status, pending swallow eval. admitting glucose 197 noted. Visitied pt during lunch time. BORA Edmonds reported swallow eval was done. ST recommended pureed nectar thick liquid. Diet order will start at dinner. Current Diet Order/ Nutrition Support pureed, nectar thick Pertinent Medications D5-0.45ns, humalog, piperacillin, vancomycin Pertinent Labs 02/05 Na 147, Cl 114, Glucose 120, POC 102, alb 3.1 02/04 K 3.4, BUN 30, Glucose 197, POC 124, alb 3.3 Nutritional Hx/Data Height 1.78 m Height (Calculated Centimeters) 177.8 Current Weight (lbs) 65.771 kg Weight (Calculated Kilograms) 65.8 Weight (Calculated Grams) 26513.9 [place] Body Weight 166 Body Mass Index (BMI) 20.7 Weight Status Approriate GI Symptoms GI Symptoms None Last BM 02/05 x 2 Difficult in: None Skin Integrity/Comment: left heel dry scaly red look like healing fr pressure ore Estimated Nutritional Goals BEE in Kcals: Using Current wt Calories/Kcals/Kg 25-30 Kcals Calculated 8692-4405 Protein: Using Current wt Protein g/k-1.2 Protein Calculated 66-79 Fluid: ml 1650-1980ml (1ml/kcal) Nutritional Problem 1. Problem Problem altered nutrition related labs Etiology hyperglycemia Signs/Symptoms: glucose 120-197, POC 102-124 Malnutrition Alert Is there a minimum of two criteria No selected? Query Text:Check all the applicable criteria. A minimum of two criteria are recommended for diagnosis of either severe or non-severe malnutrition. Malnutrition Related to Morbid Obesity Malnutrition related to morbid obesity No Intervention/Recommendation Comments 1. Continue with pureed nectar thick liquid diet per ST recommendation. Consider adding CCHO diet if gluocse continue elevated and check A1c to assess the need for CCHO diet. 2. Monitor PO intake, wt, labs and skin integrity 3. F/U as high risk in 2-3 days Expected Outcomes/Goals Expected Outcomes/Goals 1. PO intake to meet at least 75% of nutritional needs. 2. Wt stability, skin to remain intact, labs to approach WNL.
--- NOTE | 2019-02-08 15:13 | Internal Medicine Prog Note ---
Internal Medicine Subjective - Subjective Service Date: 02/08/19 Patient seen and examined:: with staff Patient is:: awake, in bed Patient Complaints of:: pain with urination (UTI.), other Per staff patient has:: no adverse event Internal Medicine Objective - Results Result Diagrams: 02/08/19 05:30 02/08/19 05:30 Recent Labs: Laboratory Last Values WBC 7.7 Th/cmm (4.8-10.8) 02/08/19 05:30 RBC 3.13 Mil/cmm (3.80-5.80) L 02/08/19 05:30 Hgb 9.7 gm/dL (12-16) L 02/08/19 05:30 Hct 29.1 % (41.0-60) L 02/08/19 05:30 MCV 93.1 fl (80-99) 02/08/19 05:30 MCH 31.1 pg (27.0-31.0) H 02/08/19 05:30 MCHC Differential 33.4 pg (28.0-36.0) 02/08/19 05:30 RDW 14.9 % (11.5-20.0) 02/08/19 05:30 Plt Count 444 Th/cmm (150-400) H 02/08/19 05:30 MPV 6.9 fl 02/08/19 05:30 Add Manual Diff YES 02/04/19 13:25 Neutrophils % 68.0 % (40.0-80.0) 02/08/19 05:30 Lymphocytes % 19.4 % (20.0-50.0) L 02/08/19 05:30 Monocytes % 6.9 % (2.0-10.0) 02/08/19 05:30 Eosinophils % 5.4 % (0.0-5.0) H 02/08/19 05:30 Basophils % 0.3 % (0.0-2.0) 02/08/19 05:30 Neutrophils (Manual) 92 % (40-80) H 02/04/19 13:25 Lymphocytes 4 % (20-50) L 02/04/19 13:25 Monocytes 4 % (2-10) 02/04/19 13:25 PT 9.9 SECONDS (9.5-11.5) 02/04/19 13:25 INR 0.95 (0.5-1.4) 02/04/19 13:25 PTT (Actin FS) 29.6 SECONDS (26.0-38.0) 02/04/19 13:25 Sodium 148 mEq/L (136-145) H 02/08/19 05:30 Potassium 3.9 mEq/L (3.5-5.1) 02/08/19 05:30 Chloride 114 mEq/L (98-107) H 02/08/19 05:30 Carbon Dioxide 24.6 mEq/L (21.0-31.0) 02/08/19 05:30 Anion Gap 13.3 (7.0-16.0) 02/08/19 05:30 BUN 9 mg/dL (7-25) 02/08/19 05:30 Creatinine 0.8 mg/dL (0.7-1.3) 02/08/19 05:30 Est GFR ( Amer) TNP 02/08/19 05:30 Est GFR (Non-Af Amer) TNP 02/08/19 05:30 BUN/Creatinine Ratio 11.3 02/08/19 05:30 Glucose 117 mg/dL (70-105) H 02/08/19 05:30 POC Glucose 109 MG/DL (70 - 105) H 02/08/19 12:07 Whole Bld Lactic Acid 1.64 mmol/L (0.60-1.99) 02/04/19 15:25 Calcium 9.1 mg/dL (8.6-10.3) 02/08/19 05:30 Total Bilirubin 0.4 mg/dL (0.3-1.0) 02/05/19 04:15 AST 22 U/L (13-39) 02/05/19 04:15 ALT 8 U/L (7-52) 02/05/19 04:15 Alkaline Phosphatase 93 U/L (34-104) 02/05/19 04:15 Troponin I 0.16 ng/mL (0.01-0.05) H* D 02/05/19 04:15 Total Protein 6.1 gm/dL (6.0-8.3) 02/05/19 04:15 Albumin 3.1 gm/dL (4.2-5.5) L 02/05/19 04:15 Globulin 3.0 gm/dL 02/05/19 04:15 Albumin/Globulin Ratio 1.0 (1.0-1.8) 02/05/19 04:15 Urine Source [place] 02/04/19 12:30 Urine Color YELLOW 02/04/19 12:30 Urine Clarity CLOUDY (CLEAR) 02/04/19 12:30 Urine pH 8.5 (4.6 - 8.0) 02/04/19 12:30 Ur Specific [place] 1.015 (1.005-1.030) 02/04/19 12:30 Urine Protein >=300 mg/dL (NEGATIVE) 02/04/19 12:30 Urine Glucose (UA) NEGATIVE mg/dL (NEGATIVE) 02/04/19 12:30 Urine Ketones TRACE mg/dL (NEGATIVE) 02/04/19 12:30 Urine Blood LARGE (NEGATIVE) H 02/04/19 12:30 Urine Nitrate NEGATIVE (NEGATIVE) 02/04/19 12:30 Urine Bilirubin NEGATIVE (NEGATIVE) 02/04/19 12:30 Urine Urobilinogen 1.0 E.U./dL (0.2 - 1.0) 02/04/19 12:30 Ur Leukocyte Esterase LARGE (NEGATIVE) H 02/04/19 12:30 Urine RBC 10-25 /hpf (0-5) H 02/04/19 12:30 Urine WBC 50-100 /hpf (0-5) H 02/04/19 12:30 Ur Epithelial Cells NONE SEEN /lpf (FEW) 02/04/19 12:30 Urine Bacteria MANY /hpf (NONE SEEN) H 02/04/19 12:30 - Physical Exam Vitals and I&O: Vital Signs Temp 97.5 F 02/08/19 14:41 Pulse 56 02/08/19 14:41 Resp 20 02/08/19 14:41 BP 120/54 02/08/19 14:06 Pulse Ox 95 02/08/19 14:41 Intake & Output 02/07/19 02/08/19 02/08/19 18:59 06:59 18:59 Intake Total 1000 1339.999 Balance 1000 1339.999 Weight (lbs) 68.492 kg Intake: Intake, IV Amount 50 1339.999 D5-0.45NS 1,000 ml @ 50 1239.999 mls/hr IV .Q20H TAZ Rx#: [id number] Piperacillin Sodium/ 50 100 Tazobact 4.5 gm In Sodium Chloride 0.9% 50 ml @ 100 mls/hr IV Q8HR PENDING SALE TO [facility] Rx #:[id number] Oral 950 Other: # Voids 3 # Bowel Movements 1 Weight Source Bedscale Active Medications: Current Medications Albuterol Sulfate (Albuterol 2.5mg/3ml Neb Ud) 2.5 mg HHN QIDRT PENDING SALE TO [facility] Stop: 04/06/19 14:59 Last Admin: 02/08/19 12:14 Dose: 2.5 mg Aspirin (Aspirin Chewable) 81 mg PO DAILY PENDING SALE TO [facility] Stop: 04/07/19 08:59 Last Admin: 02/08/19 08:31 Dose: 81 mg Carbidopa/Levodopa (Sinemet 25mg-100 Mg) 1 tab PO QID PENDING SALE TO [facility] Stop: 04/06/19 16:59 Last Admin: 02/08/19 14:05 Dose: 1 tab P[place]ar Oil/Kyrgyz Balsam/Trypsin (Venelex) 1 appl TP DAILY PENDING SALE TO [facility] Stop: 04/07/19 08:59 Last Admin: 02/08/19 08:33 Dose: 1 appl Chlorpromazine (Thorazine) 12.5 mg PO Q8H PRN; Protocol PRN Reason: Hiccups Stop: 04/06/19 13:38 Citalopram Hydrobromide (Celexa) 10 mg PO DAILY PENDING SALE TO [facility] Stop: 04/07/19 08:59 Last Admin: 02/08/19 08:31 Dose: 10 mg Dextrose (D50w) 50 ml IVP PRN PRN PRN Reason: B.S < 70 MG/DL Stop: 04/05/19 20:03 Enoxaparin Sodium (Lovenox) 40 mg SUBQ DAILY PENDING SALE TO [facility] Stop: 04/07/19 08:59 Last Admin: 02/08/19 08:34 Dose: 40 mg Hydralazine HCl (Apresoline) 25 mg PO Q8H PENDING SALE TO [facility] Stop: 04/06/19 13:44 Last Admin: 02/08/19 14:06 Dose: 25 mg Dextrose/Sodium Chloride (D5-0.45ns) 1,000 mls @ 50 mls/hr IV .Q20H PENDING SALE TO [facility] Stop: 04/05/19 20:00 Last Admin: 05/03/19 06:30 Dose: 50 mls/hr Piperacillin Sod/Tazobactam (Sod 4.5 gm/ Sodium Chloride) 50 mls @ 100 mls/hr IV Q8HR TAZ Stop: 04/06/19 12:59 Last Admin: 02/08/19 14:03 Dose: 100 mls/hr Insulin Human Lispro (Humalog Insulin Sliding Scale) 0 units SUBQ ACHS TAZ; Protocol Stop: 04/05/19 17:28 Last Admin: 02/08/19 13:58 Dose: Not Given Ipratropium [place] (Atrovent Neb 0.5mg/2.5ml) 0.5 mg HHN QIDRT TAZ Stop: 04/06/19 14:59 Last Admin: 02/08/19 12:14 Dose: 0.5 mg Lactobacillus Rhamnosus (Culturelle 15b) 1 each PO DAILY TAZ Stop: 04/07/19 08:59 Last Admin: 02/08/19 08:29 Dose: 1 each Levothyroxine Sodium (Synthroid) 0.1 mg PO QDAC TAZ Stop: 04/07/19 07:29 Last Admin: 02/08/19 06:29 Dose: 0.1 mg Lisinopril (Zestril) 10 mg PO DAILY TAZ Stop: 04/07/19 08:59 Last Admin: 02/08/19 08:29 Dose: 10 mg Memantine (Namenda) 10 mg PO DAILY TAZ Stop: 04/07/19 08:59 Last Admin: 02/08/19 08:31 Dose: 10 mg Oxybutynin Chloride (Ditropan) 5 mg PO TID TAZ Stop: 04/06/19 13:59 Last Admin: 02/08/19 14:06 Dose: 5 mg Tamsulosin HCl (Flomax) 0.4 mg PO HS TAZ Stop: 04/06/19 20:59 Last Admin: 02/07/19 21:43 Dose: 0.4 mg Theophylline (Lior-Dur) 200 mg PO Q12H TAZ Stop: 04/06/19 13:59 Last Admin: 02/08/19 14:05 Dose: 200 mg Physical Exam: 78 y/o male patient has past history of CVA with left-sided weakness. General: weak HEENT: NC/AT Neck: Supple, No JVD Lungs: wheezing, ronchi, other (pneumonia.) Cardiovascular: RRR, Normal S1 Abdomen: soft, non-tender Extremities: clear Neurological: no change Internal Medicine Assmt/Plan - Assessment Assessment: Leukocytosis. Pneumonia. UTI. BPH. CVA with Left sided-weakness. HTN. Cardiomegaly. Atheroscelosis. - Plan Plan: Continuation of care. Monitor vitals, labs and diet. Continue Antibiotics and present meds as directed. Fall precaution. Monitor pain, pain management. Continue present care management. Nutritional Asmnt/Malnutr-PDOC - Dietary Evaluation Malnutrition Findings (Please click <Entered> for more info): Nutritional Asmnt/Malnutrition Start: 02/05/19 11: 30 Text: Status: Complete Freq: Protocol: Document 02/05/19 11:30 HAYDEN (Rec: 02/05/19 11:[address] [id number] Nutritional Asmnt/Malnutrition Patient General Information Nutritional Screening Moderate Risk Diagnosis early sepsis, UTI Pertinent Medical Hx/Surgical Hx HTN, CVA/TIA, thyroid disorder , BPH Subjective Information Pt was on NPO status, pending swallow eval. admitting glucose 197 noted. Visitied pt during lunch time. BORA Edmonds reported swallow eval was done. ST recommended pureed nectar thick liquid. Diet order will start at dinner. Current Diet Order/ Nutrition Support pureed, nectar thick Pertinent Medications D5-0.45ns, humalog, piperacillin, vancomycin Pertinent Labs 02/05 Na 147, Cl 114, Glucose 120, POC 102, alb 3.1 02/04 K 3.4, BUN 30, Glucose 197, POC 124, alb 3.3 Nutritional Hx/Data Height 1.78 m Height (Calculated Centimeters) 177.8 Current Weight (lbs) 65.771 kg Weight (Calculated Kilograms) 65.8 Weight (Calculated Grams) 46567.9 [place] Body Weight 166 Body Mass Index (BMI) 20.7 Weight Status Approriate GI Symptoms GI Symptoms None Last BM 02/05 x 2 Difficult in: None Skin Integrity/Comment: left heel dry scaly red look like healing fr pressure ore Estimated Nutritional Goals BEE in Kcals: Using Current wt Calories/Kcals/Kg 25-30 Kcals Calculated 9492-2229 Protein: Using Current wt Protein g/k-1.2 Protein Calculated 66-79 Fluid: ml 1650-1980ml (1ml/kcal) Nutritional Problem 1. Problem Problem altered nutrition related labs Etiology hyperglycemia Signs/Symptoms: glucose 120-197, POC 102-124 Malnutrition Alert Is there a minimum of two criteria No selected? Query Text:Check all the applicable criteria. A minimum of two criteria are recommended for diagnosis of either severe or non-severe malnutrition. Malnutrition Related to Morbid Obesity Malnutrition related to morbid obesity No Intervention/Recommendation Comments 1. Continue with pureed nectar thick liquid diet per ST recommendation. Consider adding CCHO diet if gluocse continue elevated and check A1c to assess the need for CCHO diet. 2. Monitor PO intake, wt, labs and skin integrity 3. F/U as high risk in 2-3 days Expected Outcomes/Goals Expected Outcomes/Goals 1. PO intake to meet at least 75% of nutritional needs. 2. Wt stability, skin to remain intact, labs to approach WNL.
== END 2019-02-08 16:35 | DRG 871 ==
LOC: ER 12:39 → ICU 16:04 → TELE 02-05 18:19
PROVIDERS: ADMIT Internal Medicine; ATTEND Internal Medicine
DX: A41.9 Sepsis, unspecified organism (principal); J18.9 Pneumonia, unspecified organism; J96.90 Respiratory failure, unspecified, unspecified whether with hypoxia or hypercapnia; I69.354 Hemiplegia and hemiparesis following cerebral infarction affecting left non-dominant side; N39.0 Urinary tract infection, site not specified; E46 Unspecified protein-calorie malnutrition; N40.0 Benign prostatic hyperplasia without lower urinary tract symptoms; R13.10 Dysphagia, unspecified; L89.629 Pressure ulcer of left heel, unspecified stage; R73.9 Hyperglycemia, unspecified; E87.6 Hypokalemia; F03.90 Unspecified dementia, unspecified severity, without behavioral disturbance, psychotic disturbance, mood disturbance, and anxiety; E86.0 Dehydration; I11.9 Hypertensive heart disease without heart failure; I70.209 Unspecified atherosclerosis of native arteries of extremities, unspecified extremity; Z68.21 Body mass index [BMI] 21.0-21.9, adult
CPT/HCPCS: 36415-UA; 71045-TC; 80048-TC; 80053-TC; 81001-TC; 82948-90; 83036-90; 83605; 84484-TC; 85007-TC; 85025-TC; 85610-TC; 87086-90; 90779; 93005; 94640; 94760; J0696; J1650; J2543; J3370; J3480; J7030; J7613; X3401; Z7610

== ENCOUNTER 2019-03-27 15:48 | Inpatient (IN) | payer MEDICARE, MEDICAID ==
--- NOTE | 2019-03-27 16:32 | ED Physician Chart ---
ED Chief Complaint/HPI - Patient Information Date Seen:: 03/27/19 Time Seen:: 16:30 Chief Complaint:: Fever, poor po intake History of Present Illness:: 79 yo male was brought from SNF to ER for evaluation of weakness, dehydration, poor po intake and fever for 1 day. Allergies:: Allergies Allergy/AdvReac Type Severity Reaction Status Date / Time rivaroxaban [From Xarelto] Allergy Verified 03/27/19 16:23 Vitals:: Vital Signs - 8 hr 03/27/19 15:51 Temp 99.8 F HR 90 RR 18 BP 92/54 O2 Sat % 94 ED Review of Systems - Review of Systems General/Constitutional: Fever, Weakness Skin: No rash Eyes: No pain ENT: No nasal drainage Neck: No neck pain Cardio Vascular: No chest pain Pulmonary: No cough GI: Nausea, Vomiting Musculoskeletal: Bone or joint pain Endocrine: Polydipsia Neurological: No headache ED Past Medical History - Past Medical History Past Medical History: HTN, CVA/TIA, PUD/GERD, Other (Hypothyroidism, BPH, parkinson's, osteomyelitis, PVD,dementia) Social History: Non Smoker, No Alcohol, No Drug Use Family Medical History - Family Member Mother History Unknown: Yes Ethnicity: Hx Family Cancer: No Hx Family Coronary Artery Disease: Yes (sister) Hx Family Congestive Heart Failure: No Hx Family Hypertension: Yes Hx Family Stroke: No Hx Family Diabetes: Yes Hx Family Seizures: No Hx Family Dementia: Yes Hx Family AIDS: No Hx Family HIV: No Hx Family COPD: No Hx Family Hepatitis: No Hx Family Psychiatric Problems: No Hx Family Tuberculosis: No ED Physical Exam - Physical Examination General/Constitutional: Awake, Alert Head: Atraumatic Eyes: PERRL Skin: No skin lesions, No ecchymosis ENMT: Nasal exam nl Neck: No nuchal rigidity Respiratory: No Wheeze/Rhonchi/Rales Cardio Vascular: RRR, No murmur, gallop, rubs, NL S1 S2 GI: No tenderness/rebounding/guarding : NL external genitalia Other Extremities comments:: limited ROM Neuro/Psych: DTR's symmetric ED Labs/Radiology/EKG Results - Lab Results Results: Lab Results 03/27/19 03/27/19 03/27/19 Range/Units 16:34 17:10 17:10 WBC 18.9 H (4.8-10.8) Th/cmm RBC 3.76 L (3.80-5.80) Mil/cmm Hgb 11.4 L (12-16) gm/dL Hct 34.4 L (41.0-60) % MCV 91.6 (80-99) fl MCH 30.5 (27.0-31.0) pg MCHC Differential 33.2 (28.0-36.0) pg RDW 14.7 (11.5-20.0) % Plt Count 292 (150-400) Th/cmm MPV 8.2 fl Add Manual Diff YES Band Neutrophils % 0 (0-10) % Neutrophils (Manual) 95 H (40-80) % Lymphocytes 2 L (20-50) % Monocytes 3 (2-10) % Eosinophils 0 (0-5) % Basophils 0 (0-3) % Platelet Estimate ADEQUATE (NORMAL) PT (9.5-11.5) SECONDS INR (0.5-1.4) PTT (Actin FS) (26.0-38.0) SECONDS Sodium (136-145) mEq/L Potassium (3.5-5.1) mEq/L Chloride (98-107) mEq/L Carbon Dioxide (21.0-31.0) mEq/L Anion Gap (7.0-16.0) BUN (7-25) mg/dL Creatinine (0.7-1.3) mg/dL Est GFR ( Amer) Est GFR (Non-Af Amer) BUN/Creatinine Ratio Glucose (70-105) mg/dL Whole Bld Lactic Acid (0.60-1.99) mmol/L Calcium (8.6-10.3) mg/dL Total Bilirubin (0.3-1.0) mg/dL AST (13-39) U/L ALT (7-52) U/L Alkaline Phosphatase (34-104) U/L Troponin I (0.01-0.05) ng/mL B-Natriuretic Peptide 44.3 (5.0-100.0) pg/mL Total Protein (6.0-8.3) gm/dL Albumin (4.2-5.5) gm/dL Globulin gm/dL Albumin/Globulin Ratio (1.0-1.8) Urine Source [place] Urine Color YELLOW Urine Clarity CLOUDY (CLEAR) Urine pH >=9.0 (4.6 - 8.0) Ur Specific [place] <= 1.005 (1.005-1.030) Urine Protein 100 H (NEGATIVE) mg/dL Urine Glucose (UA) NEGATIVE (NEGATIVE) mg/dL Urine Ketones NEGATIVE (NEGATIVE) mg/dL Urine Blood SMALL H (NEGATIVE) Urine Nitrate POSITIVE H (NEGATIVE) Urine Bilirubin NEGATIVE (NEGATIVE) Urine Urobilinogen 0.2 (0.2 - 1.0) E.U./dL Ur Leukocyte Esterase LARGE H (NEGATIVE) Urine RBC 0-2 H (0-5) /hpf Urine WBC 50-100 H (0-5) /hpf Ur Epithelial Cells NONE SEEN (FEW) /lpf Triple Phos Crystals FEW (FEW) /hpf Urine Bacteria MODERATE H (NONE SEEN) /hpf 03/27/19 03/27/19 03/27/19 Range/Units 17:10 17:10 17:40 WBC (4.8-10.8) Th/cmm RBC (3.80-5.80) Mil/cmm Hgb (12-16) gm/dL Hct (41.0-60) % MCV (80-99) fl MCH (27.0-31.0) pg MCHC Differential (28.0-36.0) pg RDW (11.5-20.0) % Plt Count (150-400) Th/cmm MPV fl Add Manual Diff Band Neutrophils % (0-10) % Neutrophils (Manual) (40-80) % Lymphocytes (20-50) % Monocytes (2-10) % Eosinophils (0-5) % Basophils (0-3) % Platelet Estimate (NORMAL) PT 10.2 (9.5-11.5) SECONDS INR 0.98 (0.5-1.4) PTT (Actin FS) 29.2 (26.0-38.0) SECONDS Sodium 144 (136-145) mEq/L Potassium 2.7 L* (3.5-5.1) mEq/L Chloride 108 H (98-107) mEq/L Carbon Dioxide 22.4 (21.0-31.0) mEq/L Anion Gap 16.3 H (7.0-16.0) BUN 80 H (7-25) mg/dL Creatinine 2.4 H (0.7-1.3) mg/dL Est GFR ( Amer) TNP Est GFR (Non-Af Amer) TNP BUN/Creatinine Ratio 33.3 Glucose 136 H (70-105) mg/dL Whole Bld Lactic Acid (0.60-1.99) mmol/L Calcium 10.0 (8.6-10.3) mg/dL Total Bilirubin 0.4 (0.3-1.0) mg/dL AST 19 (13-39) U/L ALT 6 L (7-52) U/L Alkaline Phosphatase 135 H (34-104) U/L Troponin I 0.05 (0.01-0.05) ng/mL B-Natriuretic Peptide (5.0-100.0) pg/mL Total Protein 6.9 (6.0-8.3) gm/dL Albumin 2.9 L (4.2-5.5) gm/dL Globulin 4.0 gm/dL Albumin/Globulin Ratio 0.7 L (1.0-1.8) Urine Source Urine Color Urine Clarity (CLEAR) Urine pH (4.6 - 8.0) Ur Specific [place] (1.005-1.030) Urine Protein (NEGATIVE) mg/dL Urine Glucose (UA) (NEGATIVE) mg/dL Urine Ketones (NEGATIVE) mg/dL Urine Blood (NEGATIVE) Urine Nitrate (NEGATIVE) Urine Bilirubin (NEGATIVE) Urine Urobilinogen (0.2 - 1.0) E.U./dL Ur Leukocyte Esterase (NEGATIVE) Urine RBC (0-5) /hpf Urine WBC (0-5) /hpf Ur Epithelial Cells (FEW) /lpf Triple Phos Crystals (FEW) /hpf Urine Bacteria (NONE SEEN) /hpf 03/27/19 Range/Units 17:40 WBC (4.8-10.8) Th/cmm RBC (3.80-5.80) Mil/cmm Hgb (12-16) gm/dL Hct (41.0-60) % MCV (80-99) fl MCH (27.0-31.0) pg MCHC Differential (28.0-36.0) pg RDW (11.5-20.0) % Plt Count (150-400) Th/cmm MPV fl Add Manual Diff Band Neutrophils % (0-10) % Neutrophils (Manual) (40-80) % Lymphocytes (20-50) % Monocytes (2-10) % Eosinophils (0-5) % Basophils (0-3) % Platelet Estimate (NORMAL) PT (9.5-11.5) SECONDS INR (0.5-1.4) PTT (Actin FS) (26.0-38.0) SECONDS Sodium (136-145) mEq/L Potassium (3.5-5.1) mEq/L Chloride (98-107) mEq/L Carbon Dioxide (21.0-31.0) mEq/L Anion Gap (7.0-16.0) BUN (7-25) mg/dL Creatinine (0.7-1.3) mg/dL Est GFR ( Amer) Est GFR (Non-Af Amer) BUN/Creatinine Ratio Glucose (70-105) mg/dL Whole Bld Lactic Acid 1.07 (0.60-1.99) mmol/L Calcium (8.6-10.3) mg/dL Total Bilirubin (0.3-1.0) mg/dL AST (13-39) U/L ALT (7-52) U/L Alkaline Phosphatase (34-104) U/L Troponin I (0.01-0.05) ng/mL B-Natriuretic Peptide (5.0-100.0) pg/mL Total Protein (6.0-8.3) gm/dL Albumin (4.2-5.5) gm/dL Globulin gm/dL Albumin/Globulin Ratio (1.0-1.8) Urine Source Urine Color Urine Clarity (CLEAR) Urine pH (4.6 - 8.0) Ur Specific [place] (1.005-1.030) Urine Protein (NEGATIVE) mg/dL Urine Glucose (UA) (NEGATIVE) mg/dL Urine Ketones (NEGATIVE) mg/dL Urine Blood (NEGATIVE) Urine Nitrate (NEGATIVE) Urine Bilirubin (NEGATIVE) Urine Urobilinogen (0.2 - 1.0) E.U./dL Ur Leukocyte Esterase (NEGATIVE) Urine RBC (0-5) /hpf Urine WBC (0-5) /hpf Ur Epithelial Cells (FEW) /lpf Triple Phos Crystals (FEW) /hpf Urine Bacteria (NONE SEEN) /hpf - Radiology Results Results: CXR: No acute abnormalities, cardiomegaly ED Assessment - Assessment General Assessment: Sepsis Urinary tract infection Hypokalemia Acute kidney injury due to prerenal volume depletion Anemia, normocytic, of chronic disease Assessment/Comments:: CBC, CMP, troponin, BNP, UA KCL 20 mEq IV NS 1L IV bolus Rocephin 1g IV Admitted to telemetry ED Septic Shock - . Is Septic Shock (SBP<90, OR Lactate>4 mmol\L) present?: No - <6hrs of presentation: Vital Signs: Vital Signs - 8 hr 03/27/19 15:51 Temp 99.8 F HR 90 RR 18 BP 92/54 O2 Sat % 94 ED Reassessment (Disposition) - Reassessment Reassessment Condition:: Improved - Patient Disposition Discharge/Transfer:: Acute Care w/in this hosp Admitting Medical Physician:: Mayo Abraham
[2019-03-27 17:00] LABS: URINE SOURCE MIDSTREAM
[2019-03-27 17:03] LABS: URINE BILIRUBIN NEGATIVE (NEGATIVE); URINE BLOOD SMALL (NEGATIVE); URINE GLUCOSE (UA) NEGATIVE (NEGATIVE); URINE KETONE NEGATIVE (NEGATIVE); URINE LEUKOCYTE ESTERASE LARGE (NEGATIVE); URINE MICROSCOPIC INDICATED? YES; URINE NITRATE POSITIVE (NEGATIVE); URINE PH >=9.0 (4.6 - 8.0); URINE PROTEIN 100 mg/dL (NEGATIVE); URINE UROBILINOGEN 0.2 E.U./dL (0.2 - 1.0)
[2019-03-27 17:06] LABS: URINE CLARITY CLOUDY (CLEAR); URINE COLOR YELLOW
[2019-03-27 17:12] LABS: URINE RBC 0-2 /hpf (0-5)
[2019-03-27 17:16] LABS: URINE BACTERIA MODERATE /hpf (NONE SEEN); URINE EPITHELIAL CELLS NONE SEEN /lpf (FEW); URINE TRIPLE PHOSPHATE CRYSTAL FEW /hpf (FEW); URINE WBC 50-100 /hpf (0-5)
[2019-03-27] MEDS ORDERED: cefTRIAXone 1 GM in Sodium Chloride 0.9% 50 ML IV ONE (17:16)
[2019-03-27] MEDS ORDERED: Sodium Chloride 0.9% 1,000 ML IV ONE (17:20)
[2019-03-27 17:21] LABS: HEMATOCRIT 34.4 % (41.0-60); HEMOGLOBIN 11.4 gm/dL (12-16); LYMPHOCYTE ABSOLUTE 0.7 Th/cmm (1.5-3.0); MEAN CELL VOLUME 91.6 fl (80-99); MEAN CORPUSCULAR HEMOGLOBIN 30.5 pg (27.0-31.0); MEAN CORPUSCULAR HGB CONC 33.2 pg (28.0-36.0); MONOCYTE ABSOLUTE 0.3 Th/cmm (0.3-1.0); NEUTROPHILE ABSOLUTE 17.9 Th/cmm (1.8-8.0); PLATELET COUNT 292 Th/cmm (150-400); RED BLOOD COUNT 3.76 Mil/cmm (3.80-5.80); RED CELL DISTRIBUTION WIDTH 14.7 % (11.5-20.0)
[2019-03-27 17:26] LABS: WHITE BLOOD COUNT 18.9 Th/cmm (4.8-10.8)
[2019-03-27 17:38] LABS: INR 0.98 (0.5-1.4)
[2019-03-27 17:41] LABS: ALB/GLOB RATIO 0.7 (1.0-1.8); ALBUMIN 2.9 gm/dL (4.2-5.5); ALKALINE PHOSPHATASE 135 U/L (34-104); ANION GAP 16.3 (7.0-16.0); BILIRUBIN,TOTAL 0.4 mg/dL (0.3-1.0); CARBON DIOXIDE 22.4 mEq/L (21.0-31.0); CHLORIDE 108 mEq/L (98-107); CREATININE - SERUM 2.4 mg/dL (0.7-1.3); GLUCOSE 136 mg/dL (70-105); SGOT 19 U/L (13-39); SGPT/ALT 6 U/L (7-52); SODIUM SERUM 144 mEq/L (136-145); TOTAL PROTEIN,SERUM 6.9 gm/dL (6.0-8.3)
[2019-03-27 17:46] LABS: BUN - UREA NITROGEN 80 mg/dL (7-25); POTASSIUM SERUM 2.7 mEq/L (3.5-5.1)
[2019-03-27] MEDS ORDERED: KCL 20mEq/100mL Premix 20 MEQ/100 ML PIGGYBACK IV ONE ×2 (17:48→18:25)
[2019-03-27 17:55] LABS: BAND NEUTROPHILE 0 % (0-10); NEUTROPHILS 95 % (40-80)
[2019-03-27 17:56] LABS: BASOPHIL 0 % (0-3); EOSINOPHIL 0 % (0-5); LYMPHOCYTE 2 % (20-50); MONOCYTE 3 % (2-10); PLATELET ESTIMATE ADEQUATE (NORMAL)
[2019-03-27] MEDS ORDERED: Levofloxacin 500mg/100mL Premix Bag IV ONE (21:00)
[2019-03-27] MEDS: D5-0.45NS 1,000 ML IV SCH (21:56)
[2019-03-27 23:51] VITALS: BP 131/53
[2019-03-28 05:35] LABS: HEMATOCRIT 34.5 % (41.0-60); HEMOGLOBIN 11.4 gm/dL (12-16); MEAN CELL VOLUME 93.7 fl (80-99); MEAN CORPUSCULAR HEMOGLOBIN 30.8 pg (27.0-31.0); MEAN CORPUSCULAR HGB CONC 32.9 pg (28.0-36.0); PLATELET COUNT 291 Th/cmm (150-400); RED BLOOD COUNT 3.68 Mil/cmm (3.80-5.80); RED CELL DISTRIBUTION WIDTH 14.5 % (11.5-20.0)
[2019-03-28 05:46] LABS: WHITE BLOOD COUNT 18.8 Th/cmm (4.8-10.8)
[2019-03-28 05:47] LABS: ANION GAP 12.8 (7.0-16.0); BUN - UREA NITROGEN 69 mg/dL (7-25); CALCIUM SERUM 9.8 mg/dL (8.6-10.3); CARBON DIOXIDE 24.2 mEq/L (21.0-31.0); CHLORIDE 114 mEq/L (98-107); GLUCOSE 122 mg/dL (70-105); SODIUM SERUM 148 mEq/L (136-145)
[2019-03-28 07:13] LABS: NEUTROPHILS 87 % (40-80)
[2019-03-28 07:14] LABS: BAND NEUTROPHILE 2 % (0-10); LYMPHOCYTE 9 % (20-50); MONOCYTE 2 % (2-10); PLATELET ESTIMATE ADEQUATE (NORMAL)
[2019-03-28] MEDS ORDERED: KCL 20mEq/100mL Premix 20 MEQ/100 ML PIGGYBACK IV ONE (07:30)
--- NOTE | 2019-03-28 08:26 | Diagnostic Imaging Report ---
Portable chest x-ray HISTORY: Shortness of breath The heart appears somewhat enlarged. Atherosclerotic calcification seen in the aorta. No acute focal pulmonary processes. No hilar or mediastinal abnormalities. IMPRESSION: 1. No acute pulmonary processes 2. Cardiomegaly with atherosclerotic vascular changes
[2019-03-28] MEDS ORDERED: Enoxaparin 40 mg/0.4 mL 0.4mL Syr SUBQ SCH (09:00)
[2019-03-28] MEDS ORDERED: Levothyroxine 0.1 Mg Tab PO SCH (09:00)
[2019-03-28] MEDS ORDERED: THEOPHYLLINE ANHYDROUS 200 MG PO SCH (13:45)
[2019-03-28] MEDS ORDERED: Theophylline 100 mg ER Tab PO SCH (14:30)
--- NOTE | 2019-03-28 15:38 | History & Physical ---
ADMIT DATE: 03/28/2019 CHIEF COMPLAINT: Failure poor oral intake. HISTORY OF PRESENT ILLNESS: This is a 79-year-old male who is a [facility] resident, admitted to the telemetry unit due to 1-day history of increased generalized weakness and poor oral intake. PAST MEDICAL HISTORY: Psychosis, hypertension, hypothyroidism, dementia, seasonal allergies, neurogenic bladder, BPH. PAST SURGICAL HISTORY: Unknown. ALLERGIES: RIVAROXABAN. PAST SURGICAL HISTORY: Unknown. FAMILY HISTORY: Noncontributory. REVIEW OF SYSTEMS: Unable to obtain, the patient is a bit confused. PHYSICAL EXAMINATION: GENERAL: Elderly male, well developed, well nourished, no apparent distress. VITAL SIGNS: Temperature 97.8, heart rate 81, blood pressure 146/77, respirations 20, O2 of 98%. HEENT: Head; normocephalic, atraumatic. NECK: Supple. No mass. LUNGS: Clear bilaterally. CARDIOVASCULAR: Regular rate and rhythm. ABDOMEN: Soft, nontender. LABORATORY DATA: WBC 18.8, H and H 11.4 and 34.5, platelet of 291. Sodium 148, potassium 3.0, chloride 114, BUN 69, creatinine 2.0. The patient had a urinalysis done, positive for UTI. DIAGNOSTIC DATA: The patient had a chest x-ray done. Impression is no acute pulmonary processes. ASSESSMENT: 1. Acute urinary tract infection. 2. Leukocytosis. 3. Possible sepsis. 4. Hypokalemia. 5. Vasomotor nephropathy. 6. Microcytic anemia. 7. Dementia. 8. Hypertension. 9. Benign prostatic hyperplasia. 10. Hypothyroidism. 11. Generalized weakness. 12. Neurogenic bladder. PLAN: The patient to be admitted to the telemetry unit. We will get Urology consultation as well as ID consultation. We will obtain urine culture and blood culture as well. Treat the patient with gentle IV fluids for hydration. We will continue to monitor this patient. [facility]# [id number]
[2019-03-28] MEDS: Albuterol Nebulizer 2.5mg/3mL HHN SCH ×2 (16:00→19:15)
[2019-03-28] MEDS ORDERED: LEVODOPA PO SCH (17:00)
[2019-03-28] MEDS ORDERED: CARBIDOPA PO SCH (17:00)
[2019-03-28] MEDS ORDERED: Non-Formulary Item 1 EA (Amino Acids/Protein Hydrolys [Pro-Stat Sugar Free Liquid] 30 ML) PO SCH (17:00)
--- NOTE | 2019-03-28 19:48 | Consultation ---
DATE OF CONSULTATION: UROLOGY CONSULTATION REASON FOR CONSULTATION: Seen for rising creatinine. HISTORY OF PRESENT ILLNESS: The patient is a 79-year-old known to me from previous encounter in December of this year at which time I had seen him for urinary tract infection and urinary retention. He was treated with antibiotics and bladder irrigations and his urine had grown E. coli at that time. He was discharged with a recommendation of keeping the catheter in place due to chronic retention from a functional quadriplegia, "BPH", in spite of having had a TURP and a history of stroke. However, the catheter was removed between now and the last admission and the creatinine promptly started going up, indicating chronic retention. The patient is now admitted through the Emergency Room again for weakness, dehydration and poor intake with fever, all evidence or indication of possible urinary tract infection as once again. HOME MEDICATIONS: Aspirin, carbidopa, chlorpromazine, citalopram, Lovenox, Apresoline, Synthroid, lisinopril, loratadine, memantine, oxybutynin, Flomax and inhalers. ALLERGIES: RIVAROXABAN. REVIEW OF SYSTEMS: The patient came in as mentioned for fever, weakness, and poor intake. We do not have documentation of weight loss. He is able to swallow. We do not know if he has vision change. No chest pain, coughing or shortness of breath. No abdominal pain, vomiting or diarrhea. He was in retention once again and a Zee was placed, which is now draining well and the creatinine has begun to come down. Did not complain of dysuria or hematuria. PHYSICAL EXAMINATION: GENERAL: On exam, he is noncommunicative, functional quadriplegic. VITAL SIGNS: Temperature 97.8, heart rate 58, blood pressure 146/77. No fever recorded since admission. HEAD AND NECK: Normocephalic. Trachea central. Pupils equal and reactive. No jaundice. Thyroid and lymph nodes not palpable. Carotid bruit absent. CHEST: Symmetrical. LUNGS: Clear. No rales or rhonchi. HEART: Sounds normal, in sinus rhythm, no murmur. ABDOMEN: Soft and nontender. No organomegaly, mass, or hernia. Zee catheter draining clear urine. EXTREMITIES: No significant edema or lymphadenopathy. NEUROLOGIC: Quadriplegic. LABORATORY DATA: White count 18.8, hemoglobin 11.4, platelets 291, neutrophils 87, indicating a left shift. PT/INR 0.9. Sodium 148; potassium 3.0, up from 2.7 yesterday; BUN 69; creatinine 2.0, down from 2.4 yesterday with introduction of the Zee. Liver functions unremarkable except alkaline phosphatase is mildly elevated. Urinalysis shows large amount of leukocyte esterase and white cells indicating infection as suspected. Chest x-ray, no acute changes except cardiomegaly. IMPRESSION: Chronic urinary retention, multifactorial including use of oxybutynin along with the bedridden status, associated constipation, history of stroke, etc. His Zee should never be removed and should be maintained on a long-term basis, changing it every 3-4 weeks and irrigating it vigorously every 2 days with at least 200-300 mL of normal saline. This will keep him free of infection most of the time and protect his renal function as well. Hopefully, this will be followed through as recommended last time as well. History of hypothyroidism, hypertension, functional quadriplegia, cardiac arrhythmias, peripheral vascular disease, all of which are more comorbidities to be kept in mind. JOB# [id number]
[2019-03-28] MEDS: D5-0.45NS 1,000 ML IV SCH (21:06)
[2019-03-29 05:26] LABS: % BASOPHILS 0.1 % (0.0-2.0); % EOSINOPHILS 0.4 % (0.0-5.0); % MONOCYTES 7.3 % (2.0-10.0); % NEUTROPHILS 84.2 % (40.0-80.0); EOSINOPHILE ABSOLUTE 0.1 Th/cmm (0.1-0.4); HEMATOCRIT 31.1 % (41.0-60); HEMOGLOBIN 10.5 gm/dL (12-16); LYMPHOCYTE ABSOLUTE 1.1 Th/cmm (1.5-3.0); MEAN CELL VOLUME 92.3 fl (80-99); MEAN CORPUSCULAR HEMOGLOBIN 31.2 pg (27.0-31.0); MEAN CORPUSCULAR HGB CONC 33.8 pg (28.0-36.0); NEUTROPHILE ABSOLUTE 11.5 Th/cmm (1.8-8.0); PLATELET COUNT 296 Th/cmm (150-400); RED BLOOD COUNT 3.37 Mil/cmm (3.80-5.80); RED CELL DISTRIBUTION WIDTH 14.5 % (11.5-20.0); WHITE BLOOD COUNT 13.7 Th/cmm (4.8-10.8)
[2019-03-29 05:43] LABS: ANION GAP 11.5 (7.0-16.0); BUN - UREA NITROGEN 49 mg/dL (7-25); CALCIUM SERUM 9.6 mg/dL (8.6-10.3); CARBON DIOXIDE 22.3 mEq/L (21.0-31.0); CHLORIDE 120 mEq/L (98-107); CREATININE - SERUM 1.4 mg/dL (0.7-1.3); GLUCOSE 123 mg/dL (70-105); SODIUM SERUM 151 mEq/L (136-145)
[2019-03-29 06:08] LABS: POTASSIUM SERUM 2.8 mEq/L (3.5-5.1)
[2019-03-29] MEDS: Albuterol Nebulizer 2.5mg/3mL HHN SCH ×4 (06:20→18:27)
[2019-03-29 06:26] LABS: LYMPHOCYTE 0 % (20-50)
[2019-03-29] MEDS: Levothyroxine 0.1 Mg Tab PO SCH (06:34)
[2019-03-29] MEDS ORDERED: LORATADINE 10 MG PO SCH (09:00)
[2019-03-29] MEDS ORDERED: Non-Formulary Item 1 EA (Zinc Sulfate [Zinc Sulfate] 1 TAB) PO SCH (09:00)
[2019-03-29] MEDS ORDERED: Non-Formulary Item 1 EA (Saccharomyces Boulardii [Florastor] 250 MG) PO SCH (09:00)
[2019-03-29] MEDS: KCL 20mEq/100mL Premix 20 MEQ/100 ML PIGGYBACK IV SCH ×2 (09:12→11:19)
[2019-03-29] MEDS: Enoxaparin 40 mg/0.4 mL 0.4mL Syr SUBQ SCH (09:14)
[2019-03-29] MEDS: Aspirin 81mg Chewable Tab PO SCH (09:14)
[2019-03-29] MEDS: Theophylline 100 mg ER Tab PO SCH ×2 (09:20→20:44)
[2019-03-29] MEDS ORDERED: Probiotic Screen MC PRN (10:57)
--- NOTE | 2019-03-29 14:10 | General Progress Note ---
Subjective - Review of Systems Service Date: 03/29/19 Subjective: Patient still poorly responding patient has dysphagia Objective - Results Result Diagrams: 03/29/19 05:05 03/29/19 05:05 Recent Labs: Laboratory Last Values WBC 13.7 Th/cmm (4.8-10.8) H 03/29/19 05:05 RBC 3.37 Mil/cmm (3.80-5.80) L 03/29/19 05:05 Hgb 10.5 gm/dL (12-16) L 03/29/19 05:05 Hct 31.1 % (41.0-60) L 03/29/19 05:05 MCV 92.3 fl (80-99) 03/29/19 05:05 MCH 31.2 pg (27.0-31.0) H 03/29/19 05:05 MCHC Differential 33.8 pg (28.0-36.0) 03/29/19 05:05 RDW 14.5 % (11.5-20.0) 03/29/19 05:05 Plt Count 296 Th/cmm (150-400) 03/29/19 05:05 MPV 8.0 fl 03/29/19 05:05 Add Manual Diff YES 03/28/19 04:50 Neutrophils % 84.2 % (40.0-80.0) H 03/29/19 05:05 Band Neutrophils % 2 % (0-10) 03/28/19 04:50 Lymphocytes % 8.0 % (20.0-50.0) L 03/29/19 05:05 Monocytes % 7.3 % (2.0-10.0) 03/29/19 05:05 Eosinophils % 0.4 % (0.0-5.0) 03/29/19 05:05 Basophils % 0.1 % (0.0-2.0) 03/29/19 05:05 Neutrophils (Manual) Not Reportable 03/29/19 05:05 Lymphocytes 0 % (20-50) L 03/29/19 05:05 Monocytes 2 % (2-10) 03/28/19 04:50 Eosinophils 0 % (0-5) 03/27/19 17:10 Basophils 0 % (0-3) 03/27/19 17:10 Platelet Estimate ADEQUATE (NORMAL) 03/28/19 04:50 PT 10.2 SECONDS (9.5-11.5) 03/27/19 17:10 INR 0.98 (0.5-1.4) 03/27/19 17:10 PTT (Actin FS) 29.2 SECONDS (26.0-38.0) 03/27/19 17:10 Sodium 151 mEq/L (136-145) H 03/29/19 05:05 Potassium 2.8 mEq/L (3.5-5.1) L* 03/29/19 05:05 Chloride 120 mEq/L (98-107) H 03/29/19 05:05 Carbon Dioxide 22.3 mEq/L (21.0-31.0) 03/29/19 05:05 Anion Gap 11.5 (7.0-16.0) 03/29/19 05:05 BUN 49 mg/dL (7-25) H 03/29/19 05:05 Creatinine 1.4 mg/dL (0.7-1.3) H 03/29/19 05:05 Est GFR ( Amer) TNP 03/29/19 05:05 Est GFR (Non-Af Amer) TNP 03/29/19 05:05 BUN/Creatinine Ratio 35.0 03/29/19 05:05 Glucose 123 mg/dL (70-105) H 03/29/19 05:05 Whole Bld Lactic Acid 1.07 mmol/L (0.60-1.99) 03/27/19 17:40 Calcium 9.6 mg/dL (8.6-10.3) 03/29/19 05:05 Total Bilirubin 0.4 mg/dL (0.3-1.0) 03/27/19 17:40 AST 19 U/L (13-39) 03/27/19 17:40 ALT 6 U/L (7-52) L 03/27/19 17:40 Alkaline Phosphatase 135 U/L (34-104) H 03/27/19 17:40 Troponin I 0.05 ng/mL (0.01-0.05) 03/27/19 17:10 B-Natriuretic Peptide 44.3 pg/mL (5.0-100.0) 03/27/19 17:10 Total Protein 6.9 gm/dL (6.0-8.3) 03/27/19 17:40 Albumin 2.9 gm/dL (4.2-5.5) L 03/27/19 17:40 Globulin 4.0 gm/dL 03/27/19 17:40 Albumin/Globulin Ratio 0.7 (1.0-1.8) L 03/27/19 17:40 TSH 0.62 uIU/ml (0.34-5.60) 03/28/19 04:50 Urine Source MIDSTREAM 03/27/19 16:34 Urine Color YELLOW 03/27/19 16:34 Urine Clarity CLOUDY (CLEAR) 03/27/19 16:34 Urine pH >=9.0 (4.6 - 8.0) 03/27/19 16:34 Ur Specific [place] <= 1.005 (1.005-1.030) 03/27/19 16:34 Urine Protein 100 mg/dL (NEGATIVE) H 03/27/19 16:34 Urine Glucose (UA) NEGATIVE mg/dL (NEGATIVE) 03/27/19 16:34 Urine Ketones NEGATIVE mg/dL (NEGATIVE) 03/27/19 16:34 Urine Blood SMALL (NEGATIVE) H 03/27/19 16:34 Urine Nitrate POSITIVE (NEGATIVE) H 03/27/19 16:34 Urine Bilirubin NEGATIVE (NEGATIVE) 03/27/19 16:34 Urine Urobilinogen 0.2 E.U./dL (0.2 - 1.0) 03/27/19 16:34 Ur Leukocyte Esterase LARGE (NEGATIVE) H 03/27/19 16:34 Urine RBC 0-2 /hpf (0-5) H 03/27/19 16:34 Urine WBC 50-100 /hpf (0-5) H 03/27/19 16:34 Ur Epithelial Cells NONE SEEN /lpf (FEW) 03/27/19 16:34 Triple Phos Crystals FEW /hpf (FEW) 03/27/19 16:34 Urine Bacteria MODERATE /hpf (NONE SEEN) H 03/27/19 16:34 Random Vancomycin 11.8 ug/mL (5.0-40.0) 03/29/19 05:05 - Physical Exam Vitals and I&O: Vital Signs Temp 97.0 F 03/29/19 12:00 Pulse 81 03/29/19 12:00 Resp 18 03/29/19 12:00 BP 140/61 06/21/19 12:00 Pulse Ox 98 03/29/19 12:00 Intake & Output 03/28/19 03/29/19 03/29/19 18:59 06:59 18:59 Intake Total 1300 120 100 Output Total 2400 500 Balance -1100 -380 100 Weight (lbs) 56.245 kg 56.245 kg Intake: Intake, IV Amount 1000 100 D5-0.45NS 1,000 ml @ 50 1000 mls/hr IV .Q20H [facility] Rx#: [id number] KCL 20mEq/100mL Premix 20 100 meq In 100 ml @ 50 mls/ hr IV Q2H [facility] Rx#: [id number] Oral 300 120 Output: Urine 2400 500 Other: # Bowel Movements 1 Stool Characteristics Soft Formed Weight Source Bedscale Bedscale Active Medications: Current Medications Albuterol Sulfate (Albuterol 2.5mg/3ml Neb Ud) 2.5 mg HHN QIDRT [facility] Stop: 05/27/19 14:59 Last Admin: 03/29/19 10:45 Dose: 2.5 mg Ascorbic Acid (Vitamin C) 500 mg PO DAILY [facility] Stop: 05/28/19 08:59 Last Admin: 03/29/19 09:13 Dose: 500 mg Aspirin (Aspirin Chewable) 81 mg PO DAILY [facility] Stop: 05/28/19 08:59 Last Admin: 03/29/19 09:14 Dose: 81 mg Carbidopa/Levodopa (Sinemet 25mg-100 Mg) 1 tab PO QID [facility] Stop: 05/27/19 16:59 Last Admin: 03/29/19 09:13 Dose: 1 tab Citalopram Hydrobromide (Celexa) 10 mg PO DAILY [facility] Stop: 05/28/19 08:59 Enoxaparin Sodium (Lovenox) 40 mg SUBQ DAILY [facility] Stop: 05/28/19 08:59 Last Admin: 03/29/19 09:14 Dose: 40 mg Hydralazine HCl (Apresoline) 25 mg PO Q8H [facility] Stop: 05/27/19 13:44 Last Admin: 03/29/19 06:35 Dose: 25 mg Dextrose/Sodium Chloride (D5-0.45ns) 1,000 mls @ 50 mls/hr IV .Q20H [facility] Stop: 05/26/19 18:49 Last Admin: 03/28/19 21:06 Dose: 50 mls/hr Levofloxacin (Levaquin Pb) 250 mg in 50 mls @ 100 mls/hr IV Q48HR [facility] Stop: 05/28/19 20:59 Piperacillin Sod/Tazobactam (Sod 2.25 gm/ Sodium Chloride) 50 mls @ 100 mls/hr IV Q6H [facility] Stop: 05/28/19 14:59 Levothyroxine Sodium (Synthroid) 0.1 mg PO QDAC [facility] Stop: 05/28/19 07:29 Last Admin: 03/29/19 06:34 Dose: 0.1 mg Lisinopril (Zestril) 10 mg PO DAILY [facility] Stop: 05/28/19 08:59 Last Admin: 03/29/19 09:14 Dose: 10 mg Loratadine (Claritin) 10 mg PO DAILY [facility] Stop: 05/28/19 08:59 Last Admin: 03/29/19 09:13 Dose: 10 mg Memantine (Namenda) 10 mg PO DAILY [facility] Stop: 05/28/19 08:59 Last Admin: 03/29/19 09:13 Dose: 10 mg Miscellaneous (Vancomycin Iv Per Pharmacy) 1 ea [facility] PRN [facility] Stop: 05/27/19 16:44 Miscellaneous (Probiotic Screen) 1 ea PRN PRN PRN Reason: PROTOCOL Stop: 05/28/19 10:56 Mupirocin (Bactroban Oint) 1 appl NS BID [facility] Stop: 04/02/19 17:01 Last Admin: 03/29/19 11:21 Dose: 1 appl Oxybutynin Chloride (Ditropan) 5 mg PO TID [facility] Stop: 05/27/19 13:59 Last Admin: 03/29/19 09:14 Dose: 5 mg Tamsulosin HCl (Flomax) 0.4 mg PO DAILY [facility] Stop: 05/28/19 08:59 Last Admin: 03/29/19 09:13 Dose: 0.4 mg Theophylline (Lior-Dur) 200 mg PO Q12H [facility] Stop: 05/28/19 08:59 Last Admin: 03/29/19 09:20 Dose: 200 mg Zinc Sulfate (Zinc Sulfate) 220 mg PO DAILY [facility] Stop: 05/28/19 08:59 Last Admin: 03/29/19 09:13 Dose: 220 mg General: No acute distress HEENT: Mucous membr. moist/pink Neck: Supple, JVD, +2 carotid pulse wo bruit Cardiovascular: Regular rate (flat), Normal S1, Normal S2, Systolic murmurs, Other Lungs: Clear to auscultation, Normal air movement (PSA previously) Abdomen: Bowel sounds, Soft, Other Extremities: Edema Neurological: Reflexes 2+ Assessment/Plan - Assessment Assessment: Cardiac arrhythmias PA-C PVC BPH Psychosis Hypertension Hypothyroid Dementia Neurogenic bladder Anemia Dementia - Plan Plan: Continue antibiotics monitor on telemetry bed will get echocardiogram Nutritional Asmnt/Malnutr-PDOC - Dietary Evaluation Malnutrition Findings (Please click <Entered> for more info): Nutritional Asmnt/Malnutrition Start: 03/28/19 16: 26 Text: Status: Active Freq: Protocol: Document 03/28/19 16:26 ERNST (Rec: 03/28/19 16:56 ERNST [email or web address]) Nutritional Asmnt/Malnutrition Patient General Information Nutritional Screening High Risk Diagnosis UTI AND SEPSIS Pertinent Medical Hx/Surgical Hx PSYCHOSIS, HTN, HYPOTHYROIDISM , DEMENTIA, SEASONAL ALLERGIES , NEUROGENIC BLADDER, BPH Subjective Information IA HR, FNS CONSULT: POOR PO, FTT 79 YEAR OLD MALE ADMITTED FROM [facility] D/T 1 DAY GENERALIZED WEAKNESS AND POOR ORAL INTAKE. GI:WNL SKIN: REDNESS ON LT HAND, REDNESS ON LT KNEE, SACRAL RASH, BLANCHABLE ERYTHEMA ON RT/LT FOOT AGUSTINA: 8 VISITED PT, BUT NO VERBAL RESPONSE. PER ANATOLY SAHNI, PT CONSUMED 25% BREAKFAST. SPOKE WITH ANATOLY SAHNI AFTER LUNCH AND SHE STATED PT CONSUMED 75% . ESTIMATED ENERGY NEEDS: 5624-0380 KCALS (30-35 KCALS/ KG) 50-60 G PRO (1-1.2 G PRO/KG) 9237-1546 ML FLUIDS (35-40ML/ KG) DIETARY IS PROVIDING AN ESTIMATED 1610 KCALS AND 45 G PRO. PT IS CURRENTLY CONSUMING AN ESTIMATED 50%. THIS IS PROVIDING AN ESTIMATED 805 KCALS AND 23 G PRO, TO MEET 54 % KCAL NEEDS AND 46% PRO NEEDS - INADEQUATE. WILL TALK TO ANATOLY SAHNI TO ENCOURAGE PO INTAKE AND CONTINUE TO MONITOR. Current Diet Order/ Nutrition Support PUREED, NA2GM, HONEY THICK LIQUIDS Pertinent Medications ALBUTEROL, VIT C, D5-0.45NS, SYNTHROID, ZINC SULFATE, FLOMAX Pertinent Labs 03/28:NA 148, POTASS 3.0, BUN/ CR 69/2.0, Glu 122 Nutritional Hx/Data Height 1.65 m Height (Calculated Centimeters) 165.1 Current Weight (lbs) 49.895 kg Weight (Calculated Kilograms) 49.9 Weight (Calculated Grams) 52263.2 [place] Body Weight 125 % [place] Body Weight 88 Body Mass Index (BMI) 18.3 Weight Status Approriate GI Symptoms GI Symptoms None Last BM 03/28 X1 Skin Integrity/Comment: REDNESS ON LT HAND, REDNESS ON LT KNEE, SACRAL RASH, BLANCHABLE ERYTHEMA ON RT/LT FOOT Current %PO Poor (25-49%) Estimated Nutritional Goals BEE in Kcals: Using Current wt Calories/Kcals/Kg 30-35 Kcals Calculated 5875-8384 Protein: Using Current wt Protein g/k-1.2 Protein Calculated 50-60 Fluid: ml 5791-2677 Nutritional Problem 2. Problem Problem ALTERED NUTRITION RELATED LABS Etiology R/T ELECTROLYTE IMBALANCE Signs/Symptoms: AEB NA 148, POTASS 3.0 1. Problem Problem INADEQUATE ORAL INTAKE Etiology R/T POSSIBLE LOW APPETITE Signs/Symptoms: AEB RN NOTED PO INTAKE OF 25% AND 75%. Malnutrition Related to Morbid Obesity Malnutrition related to morbid obesity Yes Intervention/Recommendation Recommendations by RD Increase Calorie Intake Comments 1. CONTINUE WITH PUREED, NA2GM DIET WITH HONEY THICK LIQUIDS 2. RN TO ENCOURAGE PO INTAKE. 3. MONITOR PO INTAKE, WT, NUTRITION RELATED LABS, AND SKIN INTEGRITY. 4. F/U HR IN 1-2 DAYS. Expected Outcomes/Goals Expected Outcomes/Goals 1. PO INTAKE TO MEET AT LEAST 75% OF ESTIMATED NEEDS. 2. WT STABILITY, SKIN TO REMAIN INTACT, LABS TO TREND WNL IN 1-2 DAYS.
[2019-03-29] MEDS ORDERED: Menthol/Zinc Oxide Oint 113gm Tube TP PRN (15:11)
--- NOTE | 2019-03-29 15:12 | Internal Medicine Prog Note ---
Internal Medicine Subjective - Subjective Service Date: 03/29/19 Patient seen and examined:: with staff Patient is:: awake, verbal, confused Patient Complaints of:: other (Cardiac arrythmias.) Per staff patient has:: no adverse event, no episodes of fall Internal Medicine Objective - Results Result Diagrams: 03/29/19 05:05 03/29/19 05:05 Recent Labs: Laboratory Last Values WBC 13.7 Th/cmm (4.8-10.8) H 03/29/19 05:05 RBC 3.37 Mil/cmm (3.80-5.80) L 03/29/19 05:05 Hgb 10.5 gm/dL (12-16) L 03/29/19 05:05 Hct 31.1 % (41.0-60) L 03/29/19 05:05 MCV 92.3 fl (80-99) 03/29/19 05:05 MCH 31.2 pg (27.0-31.0) H 03/29/19 05:05 MCHC Differential 33.8 pg (28.0-36.0) 03/29/19 05:05 RDW 14.5 % (11.5-20.0) 03/29/19 05:05 Plt Count 296 Th/cmm (150-400) 03/29/19 05:05 MPV 8.0 fl 03/29/19 05:05 Add Manual Diff YES 03/28/19 04:50 Neutrophils % 84.2 % (40.0-80.0) H 03/29/19 05:05 Band Neutrophils % 2 % (0-10) 03/28/19 04:50 Lymphocytes % 8.0 % (20.0-50.0) L 03/29/19 05:05 Monocytes % 7.3 % (2.0-10.0) 03/29/19 05:05 Eosinophils % 0.4 % (0.0-5.0) 03/29/19 05:05 Basophils % 0.1 % (0.0-2.0) 03/29/19 05:05 Neutrophils (Manual) Not Reportable 03/29/19 05:05 Lymphocytes 0 % (20-50) L 03/29/19 05:05 Monocytes 2 % (2-10) 03/28/19 04:50 Eosinophils 0 % (0-5) 03/27/19 17:10 Basophils 0 % (0-3) 03/27/19 17:10 Platelet Estimate ADEQUATE (NORMAL) 03/28/19 04:50 PT 10.2 SECONDS (9.5-11.5) 03/27/19 17:10 INR 0.98 (0.5-1.4) 03/27/19 17:10 PTT (Actin FS) 29.2 SECONDS (26.0-38.0) 03/27/19 17:10 Sodium 151 mEq/L (136-145) H 03/29/19 05:05 Potassium 2.8 mEq/L (3.5-5.1) L* 03/29/19 05:05 Chloride 120 mEq/L (98-107) H 03/29/19 05:05 Carbon Dioxide 22.3 mEq/L (21.0-31.0) 03/29/19 05:05 Anion Gap 11.5 (7.0-16.0) 03/29/19 05:05 BUN 49 mg/dL (7-25) H 03/29/19 05:05 Creatinine 1.4 mg/dL (0.7-1.3) H 03/29/19 05:05 Est GFR ( Amer) TNP 03/29/19 05:05 Est GFR (Non-Af Amer) TNP 03/29/19 05:05 BUN/Creatinine Ratio 35.0 03/29/19 05:05 Glucose 123 mg/dL (70-105) H 03/29/19 05:05 Whole Bld Lactic Acid 1.07 mmol/L (0.60-1.99) 03/27/19 17:40 Calcium 9.6 mg/dL (8.6-10.3) 03/29/19 05:05 Total Bilirubin 0.4 mg/dL (0.3-1.0) 03/27/19 17:40 AST 19 U/L (13-39) 03/27/19 17:40 ALT 6 U/L (7-52) L 03/27/19 17:40 Alkaline Phosphatase 135 U/L (34-104) H 03/27/19 17:40 Troponin I 0.05 ng/mL (0.01-0.05) 03/27/19 17:10 B-Natriuretic Peptide 44.3 pg/mL (5.0-100.0) 03/27/19 17:10 Total Protein 6.9 gm/dL (6.0-8.3) 03/27/19 17:40 Albumin 2.9 gm/dL (4.2-5.5) L 03/27/19 17:40 Globulin 4.0 gm/dL 03/27/19 17:40 Albumin/Globulin Ratio 0.7 (1.0-1.8) L 03/27/19 17:40 TSH 0.62 uIU/ml (0.34-5.60) 03/28/19 04:50 Urine Source MIDSTREAM 03/27/19 16:34 Urine Color YELLOW 03/27/19 16:34 Urine Clarity CLOUDY (CLEAR) 03/27/19 16:34 Urine pH >=9.0 (4.6 - 8.0) 03/27/19 16:34 Ur Specific [place] <= 1.005 (1.005-1.030) 03/27/19 16:34 Urine Protein 100 mg/dL (NEGATIVE) H 03/27/19 16:34 Urine Glucose (UA) NEGATIVE mg/dL (NEGATIVE) 03/27/19 16:34 Urine Ketones NEGATIVE mg/dL (NEGATIVE) 03/27/19 16:34 Urine Blood SMALL (NEGATIVE) H 03/27/19 16:34 Urine Nitrate POSITIVE (NEGATIVE) H 03/27/19 16:34 Urine Bilirubin NEGATIVE (NEGATIVE) 03/27/19 16:34 Urine Urobilinogen 0.2 E.U./dL (0.2 - 1.0) 03/27/19 16:34 Ur Leukocyte Esterase LARGE (NEGATIVE) H 03/27/19 16:34 Urine RBC 0-2 /hpf (0-5) H 03/27/19 16:34 Urine WBC 50-100 /hpf (0-5) H 03/27/19 16:34 Ur Epithelial Cells NONE SEEN /lpf (FEW) 03/27/19 16:34 Triple Phos Crystals FEW /hpf (FEW) 03/27/19 16:34 Urine Bacteria MODERATE /hpf (NONE SEEN) H 03/27/19 16:34 Random Vancomycin 11.8 ug/mL (5.0-40.0) 03/29/19 05:05 - Physical Exam Vitals and I&O: Vital Signs Temp 97.0 F 03/29/19 12:00 Pulse 72 03/29/19 14:51 Resp 18 03/29/19 14:51 BP 140/80 03/29/19 14:15 Pulse Ox 98 03/29/19 14:51 Intake & Output 03/28/19 03/29/19 03/29/19 18:59 06:59 18:59 Intake Total 1300 120 100 Output Total 2400 500 Balance -1100 -380 100 Weight (lbs) 56.245 kg 56.245 kg Intake: Intake, IV Amount 1000 100 D5-0.45NS 1,000 ml @ 50 1000 mls/hr IV .Q20H [facility] Rx#: [id number] KCL 20mEq/100mL Premix 20 100 meq In 100 ml @ 50 mls/ hr IV Q2H [facility] Rx#: [id number] Oral 300 120 Output: Urine 2400 500 Other: # Bowel Movements 1 Stool Characteristics Soft Formed Weight Source Bedscale Bedscale Active Medications: Current Medications Albuterol Sulfate (Albuterol 2.5mg/3ml Neb Ud) 2.5 mg HHN QIDRT [facility] Stop: 05/27/19 14:59 Last Admin: 03/29/19 14:51 Dose: 2.5 mg Ascorbic Acid (Vitamin C) 500 mg PO DAILY [facility] Stop: 05/28/19 08:59 Last Admin: 03/29/19 09:13 Dose: 500 mg Aspirin (Aspirin Chewable) 81 mg PO DAILY [facility] Stop: 05/28/19 08:59 Last Admin: 03/29/19 09:14 Dose: 81 mg Carbidopa/Levodopa (Sinemet 25mg-100 Mg) 1 tab PO QID [facility] Stop: 05/27/19 16:59 Last Admin: 03/29/19 14:14 Dose: 1 tab Citalopram Hydrobromide (Celexa) 10 mg PO DAILY [facility] Stop: 05/28/19 08:59 Enoxaparin Sodium (Lovenox) 40 mg SUBQ DAILY [facility] Stop: 05/28/19 08:59 Last Admin: 03/29/19 09:14 Dose: 40 mg Hydralazine HCl (Apresoline) 25 mg PO Q8H [facility] Stop: 05/27/19 13:44 Last Admin: 03/29/19 14:15 Dose: 25 mg Dextrose/Sodium Chloride (D5-0.45ns) 1,000 mls @ 50 mls/hr IV .Q20H [facility] Stop: 05/26/19 18:49 Last Admin: 03/28/19 21:06 Dose: 50 mls/hr Piperacillin Sod/Tazobactam (Sod 2.25 gm/ Sodium Chloride) 50 mls @ 100 mls/hr IV Q6H [facility] Stop: 05/28/19 14:59 Levothyroxine Sodium (Synthroid) 0.1 mg PO QDAC [facility] Stop: 05/28/19 07:29 Last Admin: 03/29/19 06:34 Dose: 0.1 mg Lisinopril (Zestril) 10 mg PO DAILY [facility] Stop: 05/28/19 08:59 Last Admin: 03/29/19 09:14 Dose: 10 mg Loratadine (Claritin) 10 mg PO DAILY [facility] Stop: 05/28/19 08:59 Last Admin: 03/29/19 09:13 Dose: 10 mg Memantine (Namenda) 10 mg PO DAILY [facility] Stop: 05/28/19 08:59 Last Admin: 03/29/19 09:13 Dose: 10 mg Miscellaneous (Probiotic Screen) 1 ea PRN PRN PRN Reason: PROTOCOL Stop: 05/28/19 10:56 Miscellaneous (Clinical Monitoring) 1 [facility] PRN PRN PRN Reason: RENAL DOSING Stop: 05/28/19 14:35 Mupirocin (Bactroban Oint) 1 appl NS BID [facility] Stop: 04/02/19 17:01 Last Admin: 03/29/19 11:21 Dose: 1 appl Oxybutynin Chloride (Ditropan) 5 mg PO TID [facility] Stop: 05/27/19 13:59 Last Admin: 03/29/19 14:15 Dose: 5 mg Tamsulosin HCl (Flomax) 0.4 mg PO DAILY [facility] Stop: 05/28/19 08:59 Last Admin: 03/29/19 09:13 Dose: 0.4 mg Theophylline (Lior-Dur) 200 mg PO Q12H [facility] Stop: 05/28/19 08:59 Last Admin: 03/29/19 09:20 Dose: 200 mg Zinc Sulfate (Zinc Sulfate) 220 mg PO DAILY [facility] Stop: 05/28/19 08:59 Last Admin: 03/29/19 09:13 Dose: 220 mg Physical Exam: 79 y/o male patient is anemic and has cardiac arrhythmias. General: weak, demented HEENT: NC/AT, PERRLA Neck: Supple, No JVD Lungs: CTAB Cardiovascular: RRR, Normal S1 Abdomen: soft, non-tender Extremities: clear Neurological: no change Internal Medicine Assmt/Plan - Assessment Assessment: Cardiac arrythmias. BPH. Psychosis. HTN. Hypothyroidism. Dementia. Neurogenic bladder. Anemia. Dysphagia. - Plan Plan: Continuation of care. Monitor Labs, Hemoglobin levels. Continue present meds as directed. Monitor vitals, Continue BP meds as directed. Monitor Diet/Nutritional support. Psych management per Psych. Pain Management. Physical therapy. Occupational therapy. Fall precaution, frequent nursing rounds, and as needed restraints to prevent fall. Safety precaution. Supportive care. Continue collaborating with consulting specialists, case management and nursing team. Will Monitor patient and continue present care management. Nutritional Asmnt/Malnutr-PDOC - Dietary Evaluation Malnutrition Findings (Please click <Entered> for more info): Nutritional Asmnt/Malnutrition Start: 03/28/19 16: 26 Text: Status: Active Freq: Protocol: Document 03/28/19 16:26 ERNST (Rec: 03/28/19 16:56 ERNST [email or web address]) Nutritional Asmnt/Malnutrition Patient General Information Nutritional Screening High Risk Diagnosis UTI AND SEPSIS Pertinent Medical Hx/Surgical Hx PSYCHOSIS, HTN, HYPOTHYROIDISM , DEMENTIA, SEASONAL ALLERGIES , NEUROGENIC BLADDER, BPH Subjective Information IA HR, FNS CONSULT: POOR PO, FTT 79 YEAR OLD MALE ADMITTED FROM [facility]F D/T 1 DAY GENERALIZED WEAKNESS AND POOR ORAL INTAKE. GI:WNL SKIN: REDNESS ON LT HAND, REDNESS ON LT KNEE, SACRAL RASH, BLANCHABLE ERYTHEMA ON RT/LT FOOT AGUSTINA: 8 VISITED PT, BUT NO VERBAL RESPONSE. PER ANATOLY SAHNI, PT CONSUMED 25% BREAKFAST. SPOKE WITH ANATOLY SAHNI AFTER LUNCH AND SHE STATED PT CONSUMED 75% . ESTIMATED ENERGY NEEDS: 7214-7183 KCALS (30-35 KCALS/ KG) 50-60 G PRO (1-1.2 G PRO/KG) 3958-0455 ML FLUIDS (35-40ML/ KG) DIETARY IS PROVIDING AN ESTIMATED 1610 KCALS AND 45 G PRO. PT IS CURRENTLY CONSUMING AN ESTIMATED 50%. THIS IS PROVIDING AN ESTIMATED 805 KCALS AND 23 G PRO, TO MEET 54 % KCAL NEEDS AND 46% PRO NEEDS - INADEQUATE. WILL TALK TO RNANATOLY TO ENCOURAGE PO INTAKE AND CONTINUE TO MONITOR. Current Diet Order/ Nutrition Support PUREED, NA2GM, HONEY THICK LIQUIDS Pertinent Medications ALBUTEROL, VIT C, D5-0.45NS, SYNTHROID, ZINC SULFATE, FLOMAX Pertinent Labs 03/28:NA 148, POTASS 3.0, BUN/ CR 69/2.0, Glu 122 Nutritional Hx/Data Height 1.65 m Height (Calculated Centimeters) 165.1 Current Weight (lbs) 49.895 kg Weight (Calculated Kilograms) 49.9 Weight (Calculated Grams) 05246.2 [place] Body Weight 125 % [place] Body Weight 88 Body Mass Index (BMI) 18.3 Weight Status Approriate GI Symptoms GI Symptoms None Last BM 03/28 X1 Skin Integrity/Comment: REDNESS ON LT HAND, REDNESS ON LT KNEE, SACRAL RASH, BLANCHABLE ERYTHEMA ON RT/LT FOOT Current %PO Poor (25-49%) Estimated Nutritional Goals BEE in Kcals: Using Current wt Calories/Kcals/Kg 30-35 Kcals Calculated 8505-0560 Protein: Using Current wt Protein g/k-1.2 Protein Calculated 50-60 Fluid: ml 9366-8564 Nutritional Problem 2. Problem Problem ALTERED NUTRITION RELATED LABS Etiology R/T ELECTROLYTE IMBALANCE Signs/Symptoms: AEB NA 148, POTASS 3.0 1. Problem Problem INADEQUATE ORAL INTAKE Etiology R/T POSSIBLE LOW APPETITE Signs/Symptoms: AEB RN NOTED PO INTAKE OF 25% AND 75%. Malnutrition Related to Morbid Obesity Malnutrition related to morbid obesity Yes Intervention/Recommendation Recommendations by RD Increase Calorie Intake Comments 1. CONTINUE WITH PUREED, NA2GM DIET WITH HONEY THICK LIQUIDS 2. RN TO ENCOURAGE PO INTAKE. 3. MONITOR PO INTAKE, WT, NUTRITION RELATED LABS, AND SKIN INTEGRITY. 4. F/U HR IN 1-2 DAYS. Expected Outcomes/Goals Expected Outcomes/Goals 1. PO INTAKE TO MEET AT LEAST 75% OF ESTIMATED NEEDS. 2. WT STABILITY, SKIN TO REMAIN INTACT, LABS TO TREND WNL IN 1-2 DAYS.
[2019-03-29] MEDS: Venelex 60gm Tube TP SCH (16:48)
[2019-03-29] MEDS ORDERED: Levofloxacin 250mg/50mL 250 MG/50 ML BAG IV SCH (21:00)
--- NOTE | 2019-03-29 21:07 | Consultation ---
Consult Note - Consult Note Service Date: 03/29/19 Referring Physician: Mayo Abraham Consult Note: PHYSICIAN Consultation Note: Date of Admission: 03/27/19 Purpose of Consultation: Chief Complaint: History of Present Illness: Patient VA[facility]. Past Medical History: Diagnoses SEPSIS, UNSPECIFIED ORGANISM (03/27/19) ACUTE KIDNEY FAILURE WITH TUBULAR NECROSIS (03/27/19) URINARY TRACT INFECTION, SITE NOT SPECIFIED (03/27/19) WEAKNESS (03/27/19) Allergies Allergy/AdvReac Type Severity Reaction Status Date / Time ceftriaxone [From Rocephin] Allergy Verified 03/29/19 13:53 rivaroxaban [From Xarelto] Allergy Verified 03/27/19 16:23 Vital Signs Temp 97.1 F 03/29/19 19:54 Pulse 53 03/29/19 20:46 Resp 18 03/29/19 19:54 BP 113/58 03/29/19 20:46 Pulse Ox 94 03/29/19 19:54 Intake & Output 03/29/19 03/29/19 03/30/19 06:59 18:59 06:59 Intake Total 120 350 Output Total 500 550 Balance -380 -200 Weight (lbs) 124 lb 130 lb Intake: Intake, IV Amount 150 KCL 20mEq/100mL Premix 20 100 meq In 100 ml @ 50 mls/ hr IV Q2H TAZ Rx#: [id number] Piperacillin Sodium/ 50 Tazobact 2.25 gm In Sodium Chloride 0.9% 50 ml @ 100 mls/hr IV Q6H TAZ Rx#:[id number] Oral 120 200 Output: Urine 500 550 Other: # Bowel Movements 1 Weight Source [facility] Laboratory Results - last 24 hr 03/29/19 03/29/19 03/29/19 05:05 05:05 05:05 WBC 13.7 H RBC 3.37 L Hgb 10.5 L Hct 31.1 L MCV 92.3 MCH 31.2 H MCHC Differential 33.8 RDW 14.5 Plt Count 296 MPV 8.0 Neutrophils % 84.2 H Lymphocytes % 8.0 L Monocytes % 7.3 Eosinophils % 0.4 Basophils % 0.1 Neutrophils (Manual) Not Reportable Lymphocytes 0 L Sodium 151 H Potassium 2.8 L* Chloride 120 H Carbon Dioxide 22.3 Anion Gap 11.5 BUN 49 H Creatinine 1.4 H Est GFR ( Amer) TNP Est GFR (Non-Af Amer) TNP BUN/Creatinine Ratio 35.0 Glucose 123 H Calcium 9.6 Random Vancomycin 11.8 Home Medication Medication Instructions Recorded Type Amino Acids/Protein Hydrolys 30 ml PO BID 12/31/18 History [Pro-Stat Sugar Free Liquid] Aspirin 81 mg PO DAILY 12/31/18 History Citalopram Hydrobromide [Celexa*] 1 tab PO DAILY 12/31/18 History Enoxaparin [Lovenox] 40 mg SUBQ DAILY 12/31/18 History Lisinopril 10 mg PO DAILY 12/31/18 History Loratadine 10 mg PO DAILY 12/31/18 History Memantine HCl 10 mg PO DAILY 12/31/18 History Tamsulosin HCl [Flomax] 0.4 mg PO HS 12/31/18 History chlorproMAZINE [Thorazine] 12.5 mg PO Q8H PRN 12/31/18 History Carbidopa/Levodopa [Carbidopa-Levo 1 each PO QID 02/04/19 History 25-100 mg Odt] Hydralazine [Apresoline*] 25 mg PO Q8H 02/04/19 History Levothyroxine [Synthroid] 0.1 mg PO QDAC 02/04/19 History Oxybutynin Chloride [Ditropan*] 5 mg PO TID 02/04/19 History Saccharomyces Boulardii [Florastor] 250 mg PO DAILY 02/04/19 History Theophylline Anhydrous 200 mg PO Q12H 02/04/19 History [Theophylline] Albuterol Nebulizer 2.5mg/3mL 2.5 mg HHN QIDRT each 02/08/19 Rx [Albuterol Neb UD*] Ascorbic Acid [Vitamin C] 1 tab PO DAILY 03/27/19 History Tamsulosin [Flomax] 1 cap PO DAILY 03/27/19 History Zinc Sulfate 1 tab PO DAILY 03/27/19 History Current Medications Generic Name Dose Route Start Last Admin Trade Name Freq PRN Reason Stop Dose Admin Albuterol Sulfate 2.5 mg 03/28/19 15:00 03/29/19 18:27 Albuterol 2.5mg/3ml Neb Ud HHN 05/27/19 14:59 2.5 mg QIDRT TAZ Administration Ascorbic Acid 500 mg 03/29/19 09:00 03/29/19 09:13 Vitamin C PO 05/28/19 08:59 500 mg DAILY TAZ Administration Aspirin 81 mg 03/29/19 09:00 03/29/19 09:14 Aspirin Chewable PO 05/28/19 08:59 81 mg DAILY TAZ Administration Calamine/Phenol 1 appl 03/29/19 15:11 03/29/19 16:48 Calmoseptine TP 05/28/19 15:10 1 appl QID PRN Administration Skin Irritation Carbidopa/Levodopa 1 tab 03/28/19 17:00 03/29/19 20:44 Sinemet 25mg-100 Mg PO 05/27/19 16:59 1 tab QID TAZ Administration [place] Oil/[place] Balsam/Trypsin 1 appl 03/29/19 15:15 03/29/19 16:48 Venelex TP 05/28/19 15:14 1 appl DAILY TAZ Administration Citalopram Hydrobromide 10 mg 03/29/19 09:00 Celexa PO 05/28/19 08:59 DAILY TAZ Enoxaparin Sodium 40 mg 03/29/19 09:00 03/29/19 09:14 Lovenox SUBQ 05/28/19 08:59 40 mg DAILY TAZ Administration Hydralazine HCl 25 mg 03/28/19 13:45 03/29/19 20:46 Apresoline PO 05/27/19 13:44 Not Given Q8H TAZ Dextrose/Sodium Chloride 1,000 mls @ 50 mls/hr 03/27/19 18:50 03/28/19 21:06 D5-0.45ns IV 05/26/19 18:49 50 mls/hr .Q20H TAZ Administration Piperacillin Sod/Tazobactam 50 mls @ 100 mls/hr 03/29/19 15:00 03/29/19 20:43 Sod 2.25 gm/ Sodium Chloride IV 05/28/19 14:59 100 mls/hr Q6H TAZ Administration Levothyroxine Sodium 0.1 mg 03/29/19 07:30 03/29/19 06:34 Synthroid PO 05/28/19 07:29 0.1 mg QDAC TAZ Administration Lisinopril 10 mg 03/29/19 09:00 03/29/19 09:14 Zestril PO 05/28/19 08:59 10 mg DAILY TAZ Administration Loratadine 10 mg 03/29/19 09:00 03/29/19 09:13 Claritin PO 05/28/19 08:59 10 mg DAILY TAZ Administration Memantine 10 mg 03/29/19 09:00 03/29/19 09:13 Namenda PO 05/28/19 08:59 10 mg DAILY TAZ Administration Miscellaneous 1 03/29/19 10:57 Probiotic Screen 05/28/19 10:56 PRN PRN PROTOCOL Miscellaneous 1 03/29/19 14:36 Clinical Monitoring 05/28/19 14:35 PRN PRN RENAL DOSING Mupirocin 1 appl 03/29/19 09:00 03/29/19 16:20 Bactroban Oint NS 04/02/19 17:01 1 appl BID TAZ Administration Oxybutynin Chloride 5 mg 03/28/19 14:00 03/29/19 20:44 Ditropan PO 05/27/19 13:59 5 mg TID TAZ Administration Tamsulosin HCl 0.4 mg 03/29/19 09:00 03/29/19 09:13 Flomax PO 05/28/19 08:59 0.4 mg DAILY TAZ Administration Theophylline 200 mg 03/29/19 09:00 03/29/19 20:44 Lior-Dur PO 05/28/19 08:59 200 mg Q12H TAZ Administration Zinc Sulfate 220 mg 03/29/19 09:00 03/29/19 09:13 Zinc Sulfate PO 05/28/19 08:59 220 mg DAILY TAZ Administration Review of Systems: A 12 point ROS was reviewed with the pertinent positive and negatives noted in the HPI. Social History Smoking Status Unknown if ever smoked Family Medical History Family Medical History Start: 03/27/19 20: 53 Freq: ONCE Status: Active Protocol: Document 03/27/19 20:53 JACEY (Rec: 03/27/19 23:32 JACEY [id number]) Family Medical History Mother History Unknown Yes Physical Exam: General: HEENT: Neck: Cardio: Respiratory: Abdominal: Genital/Urinary: posterior decubitus ulceration without any significant drainage Extremities: left heel ulceration Neurological: Assessment: non surgical decubitus ulcer Plan: wound care assessement with Carlos Cabrera would add chemical debridement and surgical debridement reserved for any additional treatment request Signed, Billie Smith [id number]
--- NOTE | 2019-03-29 21:46 | Consultation ---
DATE OF CONSULTATION: 03/29/2019 HISTORY OF PRESENT ILLNESS: This is a 79-year-old male patient who was brought from [facility] due to weakness and tiredness. The patient was found to have hypokalemia. The patient has PAC and PVC and hence cardiac consult is requested. 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 PHYSICAL EXAMINATION: VITAL SIGNS: Blood pressure 130/80, pulse 70, respirations 20. HEAD: Normocephalic. No lumps or bumps. EYES: Pupils equal, reactive to light. Fundi show AV nicking, sclerae white, conjunctivae pink. NECK: Carotid 2+. Normal upstroke. JVD 10 cm above sternal angle. Thyroid not palpable. Lymph nodes not palpable. CHEST: Shows increased AP diameter. No kyphosis, scoliosis. LUNGS: Bilateral bronchovesicular breath sounds. HEART: PMI fifth intercostal space with lateral to midclavicular line. S1, S2. No S3, S4, soft systolic murmur. ABDOMEN: Soft. Liver, spleen not palpable. No organomegaly. Bowel sounds active. NEUROLOGIC: The patient has CVA with left-sided weakness. CLINICAL IMPRESSION: 1. Cardiac arrhythmias with PAC, PVC, benign prostatic hypertrophy, psychosis, hypertension, hypothyroid, dementia, neurogenic bladder, anemia, and ulcer on the right heel. PLAN: The patient to continue present care and monitor the patient on telemetry bed for arrhythmias, also get an echocardiogram. JOB# [id number]
[2019-03-29] MEDS: D5-0.45NS 1,000 ML IV SCH (22:25)
--- NOTE | 2019-03-29 23:46 | Progress Notes ---
DATE: UROLOGY PROGRESS NOTE SUBJECTIVE: The patient was seen by General Surgery for his decubitus. His Zee is functioning well, putting out about 500-600 per shift. He has not had significant pain or fever. He is getting IV fluids and antibiotics. PHYSICAL EXAMINATION: VITAL SIGNS: Temperature 97.1, heart rate 53, blood pressure 113/58. ABDOMEN: Soft and nontender. No guarding, rigidity or rebound. He is on pureed diet, tolerating it well. Zee catheter, no blood. GENITALIA: Unremarkable. EXTREMITIES: No edema. LABORATORY DATA: White count 13.7, improved significantly. Hemoglobin 10.5, also better. Sodium 151, potassium 2.8, required replacement today. BUN 49, creatinine 1.4, continues to improve secondary to the Zee most likely. IMPRESSION: 1. Urinary retention, requires ongoing Zee and will need it indefinitely. This should not be removed because it causes him to get renal insufficiency. 2. History of previous stroke causing neurogenic bladder. Once again another indication that his Zee should not be removed. 3. Functional quadriplegia another contributing factor to the neurogenic bladder. 4. Hypertension, controlled. 5. Decubitus as per General Surgery. JOB# [id number]
--- NOTE | 2019-03-30 02:55 | Consultation ---
DATE OF CONSULTATION: 03/29/2019 INFECTIOUS DISEASE CONSULTATION REFERRING PHYSICIAN: Dr. Abraham REASON FOR CONSULTATION: Gram-negative beti sepsis. HISTORY OF PRESENT ILLNESS: The patient is a 79-year-old male with past medical history of psychosis, hypertension, hypothyroidism, dementia, seasonal allergies, neurogenic bladder, BPH, indwelling Zee catheter. The patient was brought to the ER for generalized weakness. On initial evaluation, the patient's temperature was 99.8 degree Fahrenheit and WBC count was 18,900. Sepsis workup was performed. Urinalysis showed pyuria and bacteriuria. Sepsis workup showed blood culture growing gram-negative rods in 2 sets. ID consult was called for antibiotic management. The patient was receiving Rocephin and vancomycin. PAST MEDICAL HISTORY: Includes dementia, UTI, sepsis in the past, hypertension, psychosis, hypothyroidism, dementia, neurogenic bladder, BPH. PAST SURGICAL HISTORY: Unknown. ALLERGIES: ALLERGIC TO RIVAROXABAN. MEDICATIONS: As per medication reconciliation sheet. Antibiotic-castillo, the patient was receiving vancomycin and Rocephin, was changed to Zosyn. FAMILY HISTORY: Noncontributory. REVIEW OF SYSTEMS: He is a poor historian, unable to give any history. PHYSICAL EXAMINATION: GENERAL: The patient is an elderly man, comfortably lying in bed, in no acute distress. CURRENT VITAL SIGNS: Show temperature 97 degrees Fahrenheit, pulse 81, respirations 18, blood pressure 140/61. HEENT: Head is normocephalic, atraumatic. Oral cavity is moist. [place] tongue. EYES: No pallor, no icterus. PERRLA, EOMI. NECK: Supple. No JVD. No carotid bruit. Trachea midline. CHEST: Bilateral breath sounds. No crackles or wheezing. HEART: S1 and S2 within normal limits. Regular rhythm. No murmur, no gallop. ABDOMEN: Soft, nontender, nondistended. Bowel sounds present. There is an indwelling Zee catheter. EXTREMITIES: No cyanosis, no clubbing, no edema. NEUROLOGIC: Alert and awake. Unable to communicate. LABORATORY DATA: Current lab shows WBC 13,700, hemoglobin 10.5, hematocrit 31.1, platelets 296,000, neutrophil 84.2%. Sodium 151, potassium 2.8, chloride 120, bicarbonate 22.3, BUN 49, creatinine 1.4, glucose is 123. Urinalysis showed small blood, large bilirubin, large leukocyte esterase, wbc 50-100, and moderate bacteria. Chest x-ray shows no acute cardiopulmonary process. Blood culture grew gram-negative rods in 2 sets. MRSA screen was positive. IMPRESSION: 1. Gram-negative beti sepsis. 2. Urinary tract infection with pyelonephritis. 3. Dementia. 4. Neurogenic bladder. ____ JOB# [id number]
[2019-03-30] MEDS: Levothyroxine 0.1 Mg Tab PO SCH (06:31)
[2019-03-30] MEDS: Albuterol Nebulizer 2.5mg/3mL HHN SCH ×3 (06:32→15:00)
[2019-03-30 06:38] LABS: HEMATOCRIT 31.4 % (41.0-60); HEMOGLOBIN 10.5 gm/dL (12-16); MEAN CELL VOLUME 92.4 fl (80-99); MEAN CORPUSCULAR HEMOGLOBIN 30.8 pg (27.0-31.0); MEAN CORPUSCULAR HGB CONC 33.3 pg (28.0-36.0); PLATELET COUNT 308 Th/cmm (150-400); RED CELL DISTRIBUTION WIDTH 14.6 % (11.5-20.0)
[2019-03-30 06:48] LABS: ANION GAP 10.2 (7.0-16.0); BUN - UREA NITROGEN 35 mg/dL (7-25); CALCIUM SERUM 9.8 mg/dL (8.6-10.3); CARBON DIOXIDE 25.8 mEq/L (21.0-31.0); CHLORIDE 120 mEq/L (98-107); CREATININE - SERUM 1.3 mg/dL (0.7-1.3); GLUCOSE 131 mg/dL (70-105); SODIUM SERUM 153 mEq/L (136-145)
[2019-03-30 07:33] LABS: EOSINOPHIL 1 % (0-5); LYMPHOCYTE 10 % (20-50); MONOCYTE 2 % (2-10); NEUTROPHILS 87 % (40-80)
[2019-03-30 07:34] LABS: PLATELET ESTIMATE ADEQUATE (NORMAL)
[2019-03-30] MEDS: Venelex 60gm Tube TP SCH (08:28)
[2019-03-30] MEDS: Enoxaparin 40 mg/0.4 mL 0.4mL Syr SUBQ SCH (08:28)
[2019-03-30] MEDS: Theophylline 100 mg ER Tab PO SCH (08:29)
[2019-03-30] MEDS: Aspirin 81mg Chewable Tab PO SCH (08:29)
[2019-03-30] MEDS ORDERED: Potassium Chloride 20 mEq ER Tab PO ONE (09:00)
--- NOTE | 2019-03-30 13:23 | Consultation ---
Consult Note - Consult Note Service Date: 03/30/19 Consult Note: PHYSICIAN Consultation Note: Date of Admission: 03/27/19 Purpose of Consultation: Chief Complaint: History of Present Illness: Patient VAISHALI LASSITER was admitted to [facility] Telemetry with UTI AND SEPSIS. Past Medical History: Diagnoses SEPSIS, UNSPECIFIED ORGANISM (03/27/19) ACUTE KIDNEY FAILURE WITH TUBULAR NECROSIS (03/27/19) URINARY TRACT INFECTION, SITE NOT SPECIFIED (03/27/19) WEAKNESS (03/27/19) Allergies Allergy/AdvReac Type Severity Reaction Status Date / Time ceftriaxone [From Rocephin] Allergy Verified 03/29/19 13:53 rivaroxaban [From Xarelto] Allergy Verified 03/27/19 16:23 Vital Signs Temp 97.8 F 03/30/19 12:00 Pulse 80 03/30/19 12:51 Resp 20 03/30/19 12:00 BP 132/62 03/30/19 12:51 Pulse Ox 99 03/30/19 12:00 Intake & Output 03/29/19 03/30/19 03/30/19 18:59 06:59 18:59 Intake Total 1350 220 Output Total 550 450 Balance 800 -230 Weight (lbs) 130 lb 124 lb Intake: Intake, IV Amount 1150 100 D5-0.45NS 1,000 ml @ 50 1000 mls/hr IV .Q20H TAZ Rx#: [id number] KCL 20mEq/100mL Premix 20 100 meq In 100 ml @ 50 mls/ hr IV Q2H TAZ Rx#: [id number] Piperacillin Sodium/ 50 100 Tazobact 2.25 gm In Sodium Chloride 0.9% 50 ml @ 100 mls/hr IV Q6H TAZ Rx#:[id number] Oral 200 120 Output: Urine 550 450 Other: # Bowel Movements 1 1 Weight Source [facility] Laboratory Results - last 24 hr 03/30/19 03/30/19 05:45 05:45 WBC 12.0 H RBC 3.40 L Hgb 10.5 L Hct 31.4 L MCV 92.4 MCH 30.8 MCHC Differential 33.3 RDW 14.6 Plt Count 308 MPV 7.7 Add Manual Diff YES Neutrophils % [employer]ILE[employer] CR[employer] OPERATOR Lymphocytes % C[employer]ILE[employer] CRANE OPERATOR Monocytes % CANTILEVER CRANE OPERATOR Eosinophils % CANTILEVER CRANE OPERATOR Basophils % C[employer]ILE[employer] CRANE OPERATOR Neutrophils (Manual) 87 H Lymphocytes 10 L Monocytes 2 Eosinophils 1 Platelet Estimate ADEQUATE Sodium 153 H Potassium 3.0 L Chloride 120 H Carbon Dioxide 25.8 Anion Gap 10.2 BUN 35 H Creatinine 1.3 Est GFR ( Amer) TNP Est GFR (Non-Af Amer) TNP BUN/Creatinine Ratio 26.9 Glucose 131 H Calcium 9.8 Home Medication Medication Instructions Recorded Type Amino Acids/Protein Hydrolys 30 ml PO BID 12/31/18 History [Pro-Stat Sugar Free Liquid] Aspirin 81 mg PO DAILY 12/31/18 History Citalopram Hydrobromide [Celexa*] 1 tab PO DAILY 12/31/18 History Enoxaparin [Lovenox] 40 mg SUBQ DAILY 12/31/18 History Lisinopril 10 mg PO DAILY 12/31/18 History Loratadine 10 mg PO DAILY 12/31/18 History Memantine HCl 10 mg PO DAILY 12/31/18 History Tamsulosin HCl [Flomax] 0.4 mg PO HS 12/31/18 History chlorproMAZINE [Thorazine] 12.5 mg PO Q8H PRN 12/31/18 History Carbidopa/Levodopa [Carbidopa-Levo 1 each PO QID 02/04/19 History 25-100 mg Odt] Hydralazine [Apresoline*] 25 mg PO Q8H 02/04/19 History Levothyroxine [Synthroid] 0.1 mg PO QDAC 02/04/19 History Oxybutynin Chloride [Ditropan*] 5 mg PO TID 02/04/19 History Saccharomyces Boulardii [Florastor] 250 mg PO DAILY 02/04/19 History Theophylline Anhydrous 200 mg PO Q12H 02/04/19 History [Theophylline] Albuterol Nebulizer 2.5mg/3mL 2.5 mg HHN QIDRT each 02/08/19 Rx [Albuterol Neb UD*] Ascorbic Acid [Vitamin C] 1 tab PO DAILY 03/27/19 History Tamsulosin [Flomax] 1 cap PO DAILY 03/27/19 History Zinc Sulfate 1 tab PO DAILY 03/27/19 History Current Medications Generic Name Dose Route Start Last Admin Trade Name Freq PRN Reason Stop Dose Admin Albuterol Sulfate 2.5 mg 03/28/19 15:00 03/30/19 10:31 Albuterol 2.5mg/3ml Neb Ud HHN 05/27/19 14:59 2.5 mg QIDRT TAZ Administration Ascorbic Acid 500 mg 03/29/19 09:00 03/30/19 08:29 Vitamin C PO 05/28/19 08:59 500 mg DAILY TAZ Administration Aspirin 81 mg 03/29/19 09:00 03/30/19 08:29 Aspirin Chewable PO 05/28/19 08:59 81 mg DAILY TAZ Administration Calamine/Phenol 1 appl 03/29/19 15:11 03/29/19 16:48 Calmoseptine TP 05/28/19 15:10 1 appl QID PRN Administration Skin Irritation Carbidopa/Levodopa 1 tab 03/28/19 17:00 03/30/19 12:07 Sinemet 25mg-100 Mg PO 05/27/19 16:59 1 tab QID TAZ Administration [place] Oil/[place] Balsam/Trypsin 1 appl 03/29/19 15:15 03/30/19 08:28 Venelex TP 05/28/19 15:14 1 appl DAILY TAZ Administration Citalopram Hydrobromide 10 mg 03/29/19 09:00 03/30/19 08:31 Celexa PO 05/28/19 08:59 10 mg DAILY TAZ Administration Enoxaparin Sodium 40 mg 03/29/19 09:00 03/30/19 08:28 Lovenox SUBQ 05/28/19 08:59 40 mg DAILY TAZ Administration Hydralazine HCl 25 mg 03/28/19 13:45 03/30/19 12:51 Apresoline PO 05/27/19 13:44 25 mg Q8H TAZ Administration Dextrose/Sodium Chloride 1,000 mls @ 50 mls/hr 03/27/19 18:50 03/29/19 22:25 D5-0.45ns IV 05/26/19 18:49 50 mls/hr .Q20H TAZ Administration Piperacillin Sod/Tazobactam 50 mls @ 100 mls/hr 03/29/19 15:00 03/30/19 08:27 Sod 2.25 gm/ Sodium Chloride IV 05/28/19 14:59 100 mls/hr Q6H TAZ Administration Lactobacillus Rhamnosus 1 each 03/31/19 09:00 Culturelle 15b PO 05/30/19 08:59 DAILY TAZ Levothyroxine Sodium 0.1 mg 03/29/19 07:30 03/30/19 06:31 Synthroid PO 05/28/19 07:29 0.1 mg QDAC TAZ Administration Lisinopril 10 mg 03/29/19 09:00 03/30/19 08:30 Zestril PO 05/28/19 08:59 10 mg DAILY TAZ Administration Loratadine 10 mg 03/29/19 09:00 03/30/19 08:31 Claritin PO 05/28/19 08:59 10 mg DAILY TAZ Administration Memantine 10 mg 03/29/19 09:00 03/30/19 08:29 Namenda PO 05/28/19 08:59 10 mg DAILY TAZ Administration Miscellaneous 1 03/29/19 10:57 Probiotic Screen 05/28/19 10:56 PRN PRN PROTOCOL Miscellaneous 1 03/29/19 14:36 Clinical Monitoring 05/28/19 14:35 PRN PRN RENAL DOSING Mupirocin 1 appl 03/29/19 09:00 03/30/19 08:28 Bactroban Oint NS 04/02/19 17:01 1 appl BID TAZ Administration Oxybutynin Chloride 5 mg 03/28/19 14:00 03/30/19 13:04 Ditropan PO 05/27/19 13:59 5 mg TID TAZ Administration Tamsulosin HCl 0.4 mg 03/29/19 09:00 03/30/19 08:31 Flomax PO 05/28/19 08:59 0.4 mg DAILY TAZ Administration Theophylline 200 mg 03/29/19 09:00 03/30/19 08:29 Lior-Dur PO 05/28/19 08:59 200 mg Q12H TAZ Administration Zinc Sulfate 220 mg 03/29/19 09:00 03/30/19 08:29 Zinc Sulfate PO 05/28/19 08:59 220 mg DAILY TAZ Administration Review of Systems: A 12 point ROS was reviewed with the pertinent positive and negatives noted in the HPI. Social History Smoking Status Unknown if ever smoked Family Medical History Family Medical History Start: 03/27/19 20: 53 Freq: ONCE Status: Active Protocol: Document 03/27/19 20:53 JACEY (Rec: 03/27/19 23:32 JACEY [id number]) Family Medical History Mother History Unknown Yes Physical Exam: General: HEENT: Neck: Cardio: Respiratory: Abdominal: Genital/Urinary: Extremities: Neurological: Assessment: Plan: continue wound care Franci, Billie Smith [phone]
--- NOTE | 2019-03-30 15:13 | General Progress Note ---
Subjective - Review of Systems Service Date: 03/30/19 Subjective: Patient still poorly responding patient has dysphagia Objective - Results Result Diagrams: 03/30/19 05:45 03/30/19 05:45 Recent Labs: Laboratory Last Values WBC 12.0 Th/cmm (4.8-10.8) H 03/30/19 05:45 RBC 3.40 Mil/cmm (3.80-5.80) L 03/30/19 05:45 Hgb 10.5 gm/dL (12-16) L 03/30/19 05:45 Hct 31.4 % (41.0-60) L 03/30/19 05:45 MCV 92.4 fl (80-99) 03/30/19 05:45 MCH 30.8 pg (27.0-31.0) 03/30/19 05:45 MCHC Differential 33.3 pg (28.0-36.0) 03/30/19 05:45 RDW 14.6 % (11.5-20.0) 03/30/19 05:45 Plt Count 308 Th/cmm (150-400) 03/30/19 05:45 MPV 7.7 fl 03/30/19 05:45 Add Manual Diff YES 03/30/19 05:45 Neutrophils % DIRECTOR EMBALMER 03/30/19 05:45 Band Neutrophils % 2 % (0-10) 03/28/19 04:50 Lymphocytes % DIRECTOR EMBALMER 03/30/19 05:45 Monocytes % DIRECTOR EMBALMER 03/30/19 05:45 Eosinophils % DIRECTOR EMBALMER 03/30/19 05:45 Basophils % DIRECTOR EMBALMER 03/30/19 05:45 Neutrophils (Manual) 87 % (40-80) H 03/30/19 05:45 Lymphocytes 10 % (20-50) L 03/30/19 05:45 Monocytes 2 % (2-10) 03/30/19 05:45 Eosinophils 1 % (0-5) 03/30/19 05:45 Basophils 0 % (0-3) 03/27/19 17:10 Platelet Estimate ADEQUATE (NORMAL) 03/30/19 05:45 PT 10.2 SECONDS (9.5-11.5) 03/27/19 17:10 INR 0.98 (0.5-1.4) 03/27/19 17:10 PTT (Actin FS) 29.2 SECONDS (26.0-38.0) 03/27/19 17:10 Sodium 153 mEq/L (136-145) H 03/30/19 05:45 Potassium 3.0 mEq/L (3.5-5.1) L 03/30/19 05:45 Chloride 120 mEq/L (98-107) H 03/30/19 05:45 Carbon Dioxide 25.8 mEq/L (21.0-31.0) 03/30/19 05:45 Anion Gap 10.2 (7.0-16.0) 03/30/19 05:45 BUN 35 mg/dL (7-25) H 03/30/19 05:45 Creatinine 1.3 mg/dL (0.7-1.3) 03/30/19 05:45 Est GFR ( Amer) TNP 03/30/19 05:45 Est GFR (Non-Af Amer) TNP 03/30/19 05:45 BUN/Creatinine Ratio 26.9 03/30/19 05:45 Glucose 131 mg/dL (70-105) H 03/30/19 05:45 Whole Bld Lactic Acid 1.07 mmol/L (0.60-1.99) 03/27/19 17:40 Calcium 9.8 mg/dL (8.6-10.3) 03/30/19 05:45 Total Bilirubin 0.4 mg/dL (0.3-1.0) 03/27/19 17:40 AST 19 U/L (13-39) 03/27/19 17:40 ALT 6 U/L (7-52) L 03/27/19 17:40 Alkaline Phosphatase 135 U/L (34-104) H 03/27/19 17:40 Troponin I 0.05 ng/mL (0.01-0.05) 03/27/19 17:10 B-Natriuretic Peptide 44.3 pg/mL (5.0-100.0) 03/27/19 17:10 Total Protein 6.9 gm/dL (6.0-8.3) 03/27/19 17:40 Albumin 2.9 gm/dL (4.2-5.5) L 03/27/19 17:40 Globulin 4.0 gm/dL 03/27/19 17:40 Albumin/Globulin Ratio 0.7 (1.0-1.8) L 03/27/19 17:40 TSH 0.62 uIU/ml (0.34-5.60) 03/28/19 04:50 Urine Source MIDSTREAM 03/27/19 16:34 Urine Color YELLOW 03/27/19 16:34 Urine Clarity CLOUDY (CLEAR) 03/27/19 16:34 Urine pH >=9.0 (4.6 - 8.0) 03/27/19 16:34 Ur Specific [place] <= 1.005 (1.005-1.030) 03/27/19 16:34 Urine Protein 100 mg/dL (NEGATIVE) H 03/27/19 16:34 Urine Glucose (UA) NEGATIVE mg/dL (NEGATIVE) 03/27/19 16:34 Urine Ketones NEGATIVE mg/dL (NEGATIVE) 03/27/19 16:34 Urine Blood SMALL (NEGATIVE) H 03/27/19 16:34 Urine Nitrate POSITIVE (NEGATIVE) H 03/27/19 16:34 Urine Bilirubin NEGATIVE (NEGATIVE) 03/27/19 16:34 Urine Urobilinogen 0.2 E.U./dL (0.2 - 1.0) 03/27/19 16:34 Ur Leukocyte Esterase LARGE (NEGATIVE) H 03/27/19 16:34 Urine RBC 0-2 /hpf (0-5) H 03/27/19 16:34 Urine WBC 50-100 /hpf (0-5) H 03/27/19 16:34 Ur Epithelial Cells NONE SEEN /lpf (FEW) 03/27/19 16:34 Triple Phos Crystals FEW /hpf (FEW) 03/27/19 16:34 Urine Bacteria MODERATE /hpf (NONE SEEN) H 03/27/19 16:34 Random Vancomycin 11.8 ug/mL (5.0-40.0) 03/29/19 05:05 - Physical Exam Vitals and I&O: Vital Signs Temp 97.8 F 03/30/19 14:06 Pulse 53 03/30/19 15:02 Resp 16 03/30/19 15:02 BP 132/62 03/30/19 14:06 Pulse Ox 100 03/30/19 15:02 Intake & Output 03/29/19 03/30/19 03/30/19 18:59 06:59 18:59 Intake Total 1350 220 50 Output Total 550 450 Balance 800 -230 50 Weight (lbs) 58.967 kg 56.245 kg Intake: Intake, IV Amount 1150 100 50 D5-0.45NS 1,000 ml @ 50 1000 mls/hr IV .Q20H [facility] Rx#: [id number] KCL 20mEq/100mL Premix 20 100 meq In 100 ml @ 50 mls/ hr IV Q2H [facility] Rx#: [id number] Piperacillin Sodium/ 50 100 50 Tazobact 2.25 gm In Sodium Chloride 0.9% 50 ml @ 100 mls/hr IV Q6H [facility] Rx#:[id number] Oral 200 120 Output: Urine 550 450 Other: # Bowel Movements 1 1 Weight Source Bedscale Bedscale Active Medications: Current Medications Albuterol Sulfate (Albuterol 2.5mg/3ml Neb Ud) 2.5 mg HHN QIDRT [facility] Stop: 05/27/19 14:59 Last Admin: 03/30/19 15:00 Dose: 2.5 mg Ascorbic Acid (Vitamin C) 500 mg PO DAILY [facility] Stop: 05/28/19 08:59 Last Admin: 03/30/19 08:29 Dose: 500 mg Aspirin (Aspirin Chewable) 81 mg PO DAILY [facility] Stop: 05/28/19 08:59 Last Admin: 03/30/19 08:29 Dose: 81 mg Calamine/Phenol (Calmoseptine) 1 appl TP QID PRN PRN Reason: Skin Irritation Stop: 05/28/19 15:10 Last Admin: 03/29/19 16:48 Dose: 1 appl Carbidopa/Levodopa (Sinemet 25mg-100 Mg) 1 tab PO QID [facility] Stop: 05/27/19 16:59 Last Admin: 03/30/19 12:07 Dose: 1 tab [place] Oil/Bangladeshi Balsam/Trypsin (Venelex) 1 appl TP DAILY [facility] Stop: 05/28/19 15:14 Last Admin: 03/30/19 08:28 Dose: 1 appl Citalopram Hydrobromide (Celexa) 10 mg PO DAILY [facility] Stop: 05/28/19 08:59 Last Admin: 03/30/19 08:31 Dose: 10 mg Enoxaparin Sodium (Lovenox) 40 mg SUBQ DAILY [facility] Stop: 05/28/19 08:59 Last Admin: 03/30/19 08:28 Dose: 40 mg Hydralazine HCl (Apresoline) 25 mg PO Q8H [facility] Stop: 05/27/19 13:44 Last Admin: 03/30/19 12:51 Dose: 25 mg Dextrose/Sodium Chloride (D5-0.45ns) 1,000 mls @ 50 mls/hr IV .Q20H [facility] Stop: 05/26/19 18:49 Last Admin: 03/29/19 22:25 Dose: 50 mls/hr Piperacillin Sod/Tazobactam (Sod 2.25 gm/ Sodium Chloride) 50 mls @ 100 mls/hr IV Q6H [facility] Stop: 05/28/19 14:59 Last Admin: 03/30/19 14:15 Dose: 100 mls/hr Lactobacillus Rhamnosus (Culturelle 15b) 1 each PO DAILY [facility] Stop: 05/30/19 08:59 Levothyroxine Sodium (Synthroid) 0.1 mg PO QDAC [facility] Stop: 05/28/19 07:29 Last Admin: 03/30/19 06:31 Dose: 0.1 mg Lisinopril (Zestril) 10 mg PO DAILY [facility] Stop: 05/28/19 08:59 Last Admin: 03/30/19 08:30 Dose: 10 mg Loratadine (Claritin) 10 mg PO DAILY [facility] Stop: 05/28/19 08:59 Last Admin: 03/30/19 08:31 Dose: 10 mg Memantine (Namenda) 10 mg PO DAILY [facility] Stop: 05/28/19 08:59 Last Admin: 03/30/19 08:29 Dose: 10 mg Miscellaneous (Probiotic Screen) 1 ea PRN PRN PRN Reason: PROTOCOL Stop: 05/28/19 10:56 Miscellaneous (Clinical Monitoring) 1 ea PRN PRN PRN Reason: RENAL DOSING Stop: 05/28/19 14:35 Mupirocin (Bactroban Oint) 1 appl NS BID [facility] Stop: 04/02/19 17:01 Last Admin: 03/30/19 08:28 Dose: 1 appl Oxybutynin Chloride (Ditropan) 5 mg PO TID [facility] Stop: 05/27/19 13:59 Last Admin: 03/30/19 13:04 Dose: 5 mg Tamsulosin HCl (Flomax) 0.4 mg PO DAILY [facility] Stop: 05/28/19 08:59 Last Admin: 03/30/19 08:31 Dose: 0.4 mg Theophylline (Lior-Dur) 200 mg PO Q12H [facility] Stop: 05/28/19 08:59 Last Admin: 03/30/19 08:29 Dose: 200 mg Zinc Sulfate (Zinc Sulfate) 220 mg PO DAILY [facility] Stop: 05/28/19 08:59 Last Admin: 03/30/19 08:29 Dose: 220 mg General: No acute distress HEENT: Mucous membr. moist/pink Neck: Supple, JVD, +2 carotid pulse wo bruit Cardiovascular: Regular rate (flat), Normal S1, Normal S2, Systolic murmurs, Other Lungs: Clear to auscultation, Normal air movement (PSA previously) Abdomen: Bowel sounds, Soft, Other Extremities: Edema Neurological: Reflexes 2+ Assessment/Plan - Assessment Assessment: Cardiac arrhythmias PA-C PVC BPH Psychosis Hypertension Hypothyroid Dementia Neurogenic bladder Anemia Dementia - Plan Plan: Continue antibiotics monitor on telemetry bed will get echocardiogram Nutritional Asmnt/Malnutr-PDOC - Dietary Evaluation Malnutrition Findings (Please click <Entered> for more info): Nutritional Asmnt/Malnutrition Start: 03/28/19 16: 26 Text: Status: Active Freq: Protocol: Document 03/28/19 16:26 ERNST (Rec: 03/28/19 16:56 ERNST [id number]) Nutritional Asmnt/Malnutrition Patient General Information Nutritional Screening High Risk Diagnosis UTI AND SEPSIS Pertinent Medical Hx/Surgical Hx PSYCHOSIS, HTN, HYPOTHYROIDISM , DEMENTIA, SEASONAL ALLERGIES , NEUROGENIC BLADDER, BPH Subjective Information IA HR, FNS CONSULT: POOR PO, FTT 79 YEAR OLD MALE ADMITTED FROM [facility] D/T 1 DAY GENERALIZED WEAKNESS AND POOR ORAL INTAKE. GI:WNL SKIN: REDNESS ON LT HAND, REDNESS ON LT KNEE, SACRAL RASH, BLANCHABLE ERYTHEMA ON RT/LT FOOT AGUSTINA: 8 VISITED PT, BUT NO VERBAL RESPONSE. PER ANATOLY SAHNI, PT CONSUMED 25% BREAKFAST. SPOKE WITH ANATOLY SAHNI AFTER LUNCH AND SHE STATED PT CONSUMED 75% . ESTIMATED ENERGY NEEDS: 5630-7263 KCALS (30-35 KCALS/ KG) 50-60 G PRO (1-1.2 G PRO/KG) 6030-5074 ML FLUIDS (35-40ML/ KG) DIETARY IS PROVIDING AN ESTIMATED 1610 KCALS AND 45 G PRO. PT IS CURRENTLY CONSUMING AN ESTIMATED 50%. THIS IS PROVIDING AN ESTIMATED 805 KCALS AND 23 G PRO, TO MEET 54 % KCAL NEEDS AND 46% PRO NEEDS - INADEQUATE. WILL TALK TO RNANATOLY TO ENCOURAGE PO INTAKE AND CONTINUE TO MONITOR. Current Diet Order/ Nutrition Support PUREED, NA2GM, HONEY THICK LIQUIDS Pertinent Medications ALBUTEROL, VIT C, D5-0.45NS, SYNTHROID, ZINC SULFATE, FLOMAX Pertinent Labs 03/28:NA 148, POTASS 3.0, BUN/ CR 69/2.0, Glu 122 Nutritional Hx/Data Height 1.65 m Height (Calculated Centimeters) 165.1 Current Weight (lbs) 49.895 kg Weight (Calculated Kilograms) 49.9 Weight (Calculated Grams) 68049.2 [place] Body Weight 125 % [place] Body Weight 88 Body Mass Index (BMI) 18.3 Weight Status Approriate GI Symptoms GI Symptoms None Last BM 03/28 X1 Skin Integrity/Comment: REDNESS ON LT HAND, REDNESS ON LT KNEE, SACRAL RASH, BLANCHABLE ERYTHEMA ON RT/LT FOOT Current %PO Poor (25-49%) Estimated Nutritional Goals BEE in Kcals: Using Current wt Calories/Kcals/Kg 30-35 Kcals Calculated 9930-5048 Protein: Using Current wt Protein g/k-1.2 Protein Calculated 50-60 Fluid: ml 5553-7332 Nutritional Problem 2. Problem Problem ALTERED NUTRITION RELATED LABS Etiology R/T ELECTROLYTE IMBALANCE Signs/Symptoms: AEB NA 148, POTASS 3.0 1. Problem Problem INADEQUATE ORAL INTAKE Etiology R/T POSSIBLE LOW APPETITE Signs/Symptoms: AEB RN NOTED PO INTAKE OF 25% AND 75%. Malnutrition Related to Morbid Obesity Malnutrition related to morbid obesity Yes Intervention/Recommendation Recommendations by RD Increase Calorie Intake Comments 1. CONTINUE WITH PUREED, NA2GM DIET WITH HONEY THICK LIQUIDS 2. RN TO ENCOURAGE PO INTAKE. 3. MONITOR PO INTAKE, WT, NUTRITION RELATED LABS, AND SKIN INTEGRITY. 4. F/U HR IN 1-2 DAYS. Expected Outcomes/Goals Expected Outcomes/Goals 1. PO INTAKE TO MEET AT LEAST 75% OF ESTIMATED NEEDS. 2. WT STABILITY, SKIN TO REMAIN INTACT, LABS TO TREND WNL IN 1-2 DAYS.
--- NOTE | 2019-03-30 19:43 | Progress Notes ---
DATE: 03/30/2019 SUBJECTIVE: The patient was seen in his room. The patient is awake, but poor historian due to medical condition. The patient appears to be comfortable, in no acute distress. OBJECTIVE: VITAL SIGNS: Temperature 97.2, heart rate of 71, blood pressure 111/60, respirations of 18, 97% on 2 liters via nasal cannula. HEENT: Head is atraumatic and normocephalic. Eyes: Bilateral conjunctivae are clear. Bilateral pupils are equally round and reactive. NECK: Supple. No JVD. CARDIOVASCULAR: S1 and S2, without murmur. PULMONARY: Diminished breath sounds. GASTROINTESTINAL: Soft and nontender without guarding. Positive bowel sounds. MUSCULOSKELETAL: No clubbing. No cyanosis. Positive muscle weakness. ASSESSMENT: 1. Urinary tract infection. 2. Chronic urine retention. 3. Dementia. 4. History of cerebrovascular accident. 5. Parkinson's. 6. Hypertension. 7. Hypothyroidism. PLAN: We will continue current treatment. We will continue current antibiotics. Put the patient on aspiration precaution. The patient is pending for long-term acute care evaluation for continuity of care and antibiotic management. Treatment plans were discussed with the patient's nurse. Treatment plans were discussed with Dr. Abraham. JOB# [id number]
[2019-03-31] MEDS ORDERED: Lactobacillus Rhamnosus GG 15 Billion CFU CAP.SPRINK PO SCH (09:00)
--- NOTE | 2019-03-31 10:40 | Diagnostic Imaging Report ---
Exam: Ultrasound summation kidneys. HISTORY: Hydronephrosis pyelonephritis Findings: Real-time ultrasound examination of the kidneys performed multiple planes the study correlated with prior exam 01/02/2019 the study demonstrates normal echogenicity kidneys bilaterally. There is no evidence of obstructive uropathy or nephrolithiasis. Right kidney measures 12.1 x 6.6 x 6.6 cm diameter contains 2.2 cm cyst. Left kidney measures 14.2 x 5.0 x 6.27. The abdomen contains multiple cysts largest one measuring 1.57 diameter. Urinary bladder contracted with a Zee catheter. IMPRESSION: Bilateral renal cysts clinical correlation is recommended., no evidence of obstructive uropathy.
== END 2019-03-30 19:05 | DRG 871 ==
LOC: ER 15:48 → TELE 18:20
PROVIDERS: ADMIT Internal Medicine; ATTEND Internal Medicine
DX: A41.59 Other Gram-negative sepsis (principal); N17.0 Acute kidney failure with tubular necrosis; M86.9 Osteomyelitis, unspecified; L97.429 Non-pressure chronic ulcer of left heel and midfoot with unspecified severity; N12 Tubulo-interstitial nephritis, not specified as acute or chronic; R65.20 Severe sepsis without septic shock; E86.0 Dehydration; K21.9 Gastro-esophageal reflux disease without esophagitis; I49.3 Ventricular premature depolarization; I49.1 Atrial premature depolarization; E03.9 Hypothyroidism, unspecified; G20 Parkinson's disease; F02.80 Dementia in other diseases classified elsewhere, unspecified severity, without behavioral disturbance, psychotic disturbance, mood disturbance, and anxiety; I73.9 Peripheral vascular disease, unspecified; E87.6 Hypokalemia; D63.1 Anemia in chronic kidney disease; N31.9 Neuromuscular dysfunction of bladder, unspecified; N40.1 Benign prostatic hyperplasia with lower urinary tract symptoms; R33.9 Retention of urine, unspecified; Z87.11 Personal history of peptic ulcer disease; Z86.73 Personal history of transient ischemic attack (TIA), and cerebral infarction without residual deficits; Z82.49 Family history of ischemic heart disease and other diseases of the circulatory system; Z88.8 Allergy status to other drugs, medicaments and biological substances
CPT/HCPCS: 36415-UA; 71045-TC; 76770-TC; 80048-TC; 80053-TC; 80202-TC; 81001-TC; 83605; 83880-TC; 84443-TC; 84484-TC; 85007-TC; 85025-TC; 85610-TC; 87086-90; 93005; 94760; J0696; J1650; J1956; J2543; J3370; J3480; J7030; J7613; Z7610